=== PATIENT | female | born 1985 ===

== ENCOUNTER 2020-07-14 08:11 | Outpatient (REF) | payer OTHER, SELFPAY | END 2020-07-14 08:12 | disposition home or self-care (01) | LOC: HO.LAB 08:11 | PROVIDERS: Visit Provider Internal Medicine | DX: Z20.828 Contact with and (suspected) exposure to other viral communicable diseases (principal) | CPT/HCPCS: C9803; U0003 ==

== ENCOUNTER 2020-09-04 14:30 | Outpatient (REF) | payer OTHER, SELFPAY ==
--- NOTE | 2020-09-04 14:38 | ECG_ITS ---
Test Reason : CP Blood Pressure : / mmHG Vent. Rate : 077 BPM Atrial Rate : 077 BPM P-R Int : 124 ms QRS Dur : 092 ms QT Int : 388 ms P-R-T Axes : 063 015 010 degrees QTc Int : 439 ms Normal sinus rhythm Normal ECG When compared to the previous EKG of jul 18, 2018, no significant change Referred By: Norma Keane Electronically Signed By:KERA ROCHE
--- NOTE | 2020-09-04 14:53 | XR_ITS ---
EXAMINATION: XR CHEST CLINICAL INFORMATION: Shortness of breath COMPARISON: Previous chest x-ray October 2014 TECHNIQUE: 2 views of the chest were obtained. FINDINGS: No significant abnormality is noted involving the heart, lungs, mediastinum, bony thorax or soft tissues. XR/XR chest 2V IMPRESSION: Unremarkable examination.
== END 2020-09-04 14:31 | disposition home or self-care (01) ==
LOC: HO.XRAY 14:30
PROVIDERS: PCP Internal Medicine; Visit Provider Internal Medicine
DX: R07.1 Chest pain on breathing (principal); R06.02 Shortness of breath
CPT/HCPCS: 71046; 93005

== ENCOUNTER 2020-09-08 12:29 | Emergency (ER) | payer OTHER, SELFPAY ==
[2020-09-08 13:29] VITALS: BP 126/81; PULSE 85; RESP 18; TEMP 36.4; O2SAT 100; BMI 36.5
--- NOTE | 2020-09-08 14:23 | ECG_ITS ---
Test Reason : MIGRAINE Blood Pressure : / mmHG Vent. Rate : 082 BPM Atrial Rate : 082 BPM P-R Int : 134 ms QRS Dur : 082 ms QT Int : 386 ms P-R-T Axes : 071 010 -16 degrees QTc Int : 450 ms Normal sinus rhythm Nonspecific T wave abnormality Abnormal ECG When compared with ECG of 04-SEP-2020 14:46, Nonspecific T wave abnormality now evident in Lateral leads Referred By: Mary Jo Lee Electronically Signed By:Carter Woodson
--- NOTE | 2020-09-08 14:23 | ED_ITS ---
HPI - Headache General Chief Complaint: Headache Stated Complaint: COVID SYMPTONS Time Seen by Provider: 09/08/20 14:11 Source: patient and old records reviewed Mode of arrival: ambulatory Limitations: no limitations History of Present Illness MD elicited complaint: migraine Pertinent past history: migraines Onset (ago): day(s) (1) Onset description: gradually Location: diffuse Severity: similar to previous episodes Quality & Timing: aching and throbbing Exacerbating factors: light and noise Relieving factors: dark room and sleep Context: occurred at rest Associated symptoms: nausea and chest pain (1 week) Treatments prior to arrival: prescription analgesic Related Data Home Medications Medication Instructions Recorded Confirmed sucralfate 1 gram tablet 1 g PO BID 07/02/20 09/01/20 Previous Rx's Medication Instructions Recorded cholecalciferol (vitamin D3) 25 25 mcg PO DAILY #30 cap 06/01/20 mcg (1,000 unit) capsule topiramate 25 mg tablet 25 mg PO DAILY #30 tab 07/11/20 tramadol 50 mg tablet 50 mg PO Q8H PRN 30 Days #90 tab 07/13/20 oubyqigwqc-xfnswftqesfkm-ohdnqqvn 1 tab PO DAILY PRN 30 Days #30 tab 07/14/20 50 mg-325 mg-40 mg tablet sucralfate 1 gram tablet 1 g PO BID #180 tab 07/14/20 valacyclovir 1 gram tablet 1,000 mg PO TID 7 Days #21 tab 07/14/20 albuterol sulfate 90 mcg/actuation 2 inh INHALATION Q6H PRN 30 Days 09/01/20 breath activated powder inhaler #1 ea prednisone 20 mg tablet 20 mg PO BID 3 Days #6 tab 09/01/20 cyclobenzaprine 10 mg PO TID PRN #14 tab 09/08/20 ibuprofen 600 mg PO Q6H PRN #30 tab 09/08/20 lidocaine 1 patch TOPICAL DAILY PRN #10 ea 09/08/20 Allergies Allergy/AdvReac Type Severity Reaction Status Date / Time sumatriptan [SUMATRIPTAN] Allergy Intermediate Nausea, Verified 09/08/20 13:29 vomiting, gabapentin Allergy Unknown joint pain Verified 09/08/20 13:29 Review of Systems Review of Systems: Constitutional : No Fever, No Chills, No Fatigue ENT/Mouth : No sore throat, No Rhinorrhea Eyes: No Eye Pain, No Swelling, No Redness, + photophobia Cardiovascular : pos Chest Pain, No SOB, No Dyspnea on Exertion Respiratory : No Cough, No Sputum Gastrointestinal : pos Nausea, No Vomiting, No Diarrhea, No abdominal Pain Genitourinary : No Dysuria, No Urinary Frequency, No Hematuria, Musculoskeletal : No joint pain, No Myalgias, No Joint Swelling Skin : No Skin Lesions, No rash Neuro : No Weakness, No Numbness, No Dizziness, positive Headache Psych : No Anxiety/Panic, No Depression Heme/Lymph: No Bruising, No Bleeding,No Lymphadenopathy Endocrine : No Polyuria, No Polydipsia All other systems reviewed and are negative [facility] Past Medical History Attestation statement: The following information was validated with the patient. Medical History Chest pain Hypovitaminosis D Migraines Moderate asthma Surgical History History of section History of tubal ligation Family History Family History (Updated 08/20/20 @ 08:41 by Carolina Orta [facility]) Father CVD (cardiovascular disease) Mother Chronic mental illness Breast cancer Schizophrenia Maternal Grandmother Hypertension Stroke Paternal Grandmother Breast cancer Paternal Aunt Breast cancer Paternal Aunt Cancer of unknown origin Family/Other Chronic mental illness Social History Social History Alcohol intake: never Smoking Status: Never smoker Advance Directives: No Advance Directives Information Provided: No Physical Exam Vital Signs: Vital Signs: Last Vital Signs Temp 97.6 F 09/08/20 13:29 Pulse 85 09/08/20 13:29 Resp 18 09/08/20 13:29 BP 126/81 09/08/20 13:29 Pulse Ox 100 09/08/20 13:29 Body Mass Index 36.5 Appearance: Alert. Oriented X3. No acute distress. Eyes: Pupils equal, round and reactive to light. no photophobia ENT: Pharynx normal. Neck: Normal inspection. Neck supple. no meningeal CVS: Normal heart rate and rhythm. Pulses normal. Chest: ttp along sternum Respiratory: No respiratory distress. Breath sounds normal. Abdomen: Soft and non-tender. Skin: Skin warm and dry. Normal skin color. Normal skin turgor. Extremities: No lower extremity edema. No calf ttp Neuro: Oriented X 3. No motor deficit. No sensory deficit. 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 Normal HERLINDA. Normal QRS complex. ST T wave : inverted III, aVF, V1 qTC: normal prior studies: no acute ischemia, no change 2018 The study has been interpreted contemporaneously by me. . Discharge Plan Discharge Clinical Impression: Acute costochondritis Migraines Qualifiers: Migraine type: without aura Status migrainosus presence: without status migrainosus Intractability: not intractable Qualified Code(s): G43.009 - Migraine without aura, not intractable, without status migrainosus Patient Disposition: Home, Self-Care Instructions: Migraine Headache (ED), Costochondritis (ED) Additional Instructions: return to ED for any worsening symptoms or concerns Prescriptions: New cyclobenzaprine 10 mg tablet 10 mg PO TID PRN (Reason: muscle spasm) Qty: 14 RF: 0 lidocaine 4 % adhesive patch,medicated 1 patch topical DAILY PRN (Reason: pain) Qty: 10 RF: 0 ibuprofen 600 mg tablet 600 mg PO Q6H PRN (Reason: pain) Qty: 30 RF: 0 No Action cholecalciferol (vitamin D3) 25 mcg (1,000 unit) capsule 25 mcg PO DAILY Qty: 30 RF: 3 sucralfate 1 gram tablet 1 g PO BID RF: 0 topiramate 25 mg tablet 25 mg PO DAILY Qty: 30 RF: 6 tramadol 50 mg tablet 50 mg PO Q8H PRN (Reason: pain) 30 Days Qty: 90 RF: 0 sucralfate 1 gram tablet 1 g PO BID Qty: 180 RF: 0 lbtxfmmxgz-yvsushdiikgvj-fbvk 50-325-40 mg tablet 1 tab PO DAILY PRN (Reason: pain) 30 Days Qty: 30 RF: 0 valacyclovir 1 gram tablet 1,000 mg PO TID 7 Days Qty: 21 RF: 3 ProAir RespiClick 90 mcg/actuation aerosol powdr breath activated 2 inh inhalation Q6H PRN (Reason: shortness of breath or wheezing) 30 Days Qty: 1 RF: 6 prednisone 20 mg tablet 20 mg PO BID 3 Days Qty: 6 RF: 0 Referrals: Norma Dietz MD [Primary Care Provider] - 2 days (if not better) Stand Alone Forms: Work/School Release Print Language: Albanian
[2020-09-08] MEDS: Metoclopramide HCl 10 MG/2 ML VIAL IVPUSH (14:37)
[2020-09-08] MEDS: Ketorolac Tromethamine 30 MG/ML VIAL IVPUSH (14:38)
[2020-09-08] MEDS: 0.9 % Sodium Chloride 1,000 ML 999 ML IVCONT (14:39)
[2020-09-08] MEDS: diphenhydrAMINE HCL 50 MG/ML VIAL 25 MG IVPUSH (14:41)
[2020-09-08] MEDS: Magnesium Sulfate/H2O 2 GM/50 ML PIGGYBACK IV (14:46)
[2020-09-08 15:18] LABS: Influenza A PCR NEGATIVE (Negative); Influenza B PCR NEGATIVE (Negative); Resp Syncy Virus RNA Qual PCR NEGATIVE (Negative); SARS COV2 PCR INHOUSE NEGATIVE (Negative)
[2020-09-08 15:22] LABS: Troponin-I High Sensitivity < 3.5 ng/L (<3.5-17.0)
--- NOTE | 2020-09-08 16:04 | PC.NURSE ---
PT REPORTS RELIEF OF HEADACHE AFTER MEDICATED.
[2020-09-08 16:14] VITALS: BP 150/89; PULSE 85; RESP 18; O2SAT 100
== END 2020-09-08 16:27 | disposition home or self-care (01) ==
PROVIDERS: Emergency Provider Emergency Medicine; PCP Internal Medicine
DX: M94.0 Chondrocostal junction syndrome [Tietze] (principal); G43.009 Migraine without aura, not intractable, without status migrainosus; Z20.822 Contact with and (suspected) exposure to COVID-19; J45.909 Unspecified asthma, uncomplicated
CPT/HCPCS: 0241U; 36415; 84484; 93005; 96365; 96375; 99284; J1200; J1885; J2765; J3475

== ENCOUNTER 2020-10-02 15:06 | Outpatient (REF) | payer OTHER, SELFPAY ==
[2020-10-02 17:12] LABS: MANUAL DIFF FLAG NO
[2020-10-02 17:23] LABS: Basophils Percent Auto 0.5 % (0-2); Eosinophils Absolute Auto 0.3 X10*3/uL (0.0-0.4); Eosinophils Percent Auto 3.5 % (0-4); Hematocrit 36.4 % (37-47); Hemoglobin 11.7 g/dl (12.0-16.0); Imm Gran Abs Auto 0.02 X10*3/uL (0.00-0.03); Imm Gran Pct Auto 0.2 % (0.0-0.4); Lymphocytes Absolute Auto 2.2 X10*3/uL (1.2-4.9); Lymphocytes Percent Auto 26.7 % (20-40); Mean Corpuscular HGB Conc 32.1 g/dl (31.0-35.0); Mean Corpuscular Hemoglobin 25.2 pg (27.0-33.0); Mean Corpuscular Volume 78.3 fL (80-98); Monocytes Absolute Auto 0.5 X10*3/uL (0.1-1.2); Monocytes Percent Auto 6.2 % (2-11); Neutrophils Absolute Auto 5.3 X10*3/uL (2.0-8.3); Neutrophils Percent Auto 62.9 % (45-73); Platelet Count 357 X10*3/uL (160-400); Red Blood Count 4.65 X10*6/uL (4.20-5.50); White Blood Count 8.4 X10*3/uL (4.8-10.8)
[2020-10-02 18:26] LABS: Erythrocyte Sedimentation Rate 14 MM/HR (0-20)
[2020-10-03 07:50] LABS: SARS COV2 IgG Negative (Negative)
[2020-10-05 12:16] LABS: IgA 409 mg/dL (47-310); IgG 1361 mg/dL (600-1640); IgM 160 mg/dL (50-300)
== END 2020-10-02 15:07 | disposition home or self-care (01) ==
LOC: HO.LAB 15:06
PROVIDERS: PCP Internal Medicine; Visit Provider Hospitalist
DX: J45.41 Moderate persistent asthma with (acute) exacerbation (principal); R07.1 Chest pain on breathing; Z01.84 Encounter for antibody response examination
CPT/HCPCS: 36415; 82784; 82785; 85025; 85652; 86003; 86769; 99202

== ENCOUNTER → 2020-11-18 13:24 | Outpatient (BNVA) | payer OTHER, SELFPAY | PROVIDERS: PCP Internal Medicine; Visit Provider Internal Medicine | DX: R07.2 Precordial pain (principal); R06.02 Shortness of breath | CPT/HCPCS: 99202 ==

== ENCOUNTER 2020-11-20 14:01 | Outpatient (REF) | payer OTHER, SELFPAY ==
--- NOTE | 2020-11-20 16:59 | PFT_ITS ---
Forced vital capacity FEV1, MHL98-03 and MVV are all normal. Post-bronchodilator therapy, there is no change. Total lung capacity and residual volume normal. Diffusion capacity normal. CONCLUSION: Normal pulmonary function test. MD TOMMIE Neumann/NICHOLAS / [id number]
[2020-11-20 18:17] LABS: MANUAL DIFF FLAG NO
[2020-11-20 18:23] LABS: Basophils Percent Auto 0.4 % (0-2); Eosinophils Absolute Auto 0.1 X10*3/uL (0.0-0.4); Eosinophils Percent Auto 1.6 % (0-4); Hematocrit 36.8 % (37-47); Hemoglobin 11.6 g/dl (12.0-16.0); Imm Gran Abs Auto 0.02 X10*3/uL (0.00-0.03); Imm Gran Pct Auto 0.3 % (0.0-0.4); Lymphocytes Absolute Auto 2.3 X10*3/uL (1.2-4.9); Lymphocytes Percent Auto 31.3 % (20-40); Mean Corpuscular HGB Conc 31.5 g/dl (31.0-35.0); Mean Corpuscular Hemoglobin 25.2 pg (27.0-33.0); Mean Corpuscular Volume 79.8 fL (80-98); Mean Platelet Volume 9.1 fL (9.4-12.3); Monocytes Absolute Auto 0.6 X10*3/uL (0.1-1.2); Monocytes Percent Auto 7.7 % (2-11); Neutrophils Absolute Auto 4.4 X10*3/uL (2.0-8.3); Neutrophils Percent Auto 58.7 % (45-73); Platelet Count 338 X10*3/uL (160-400); Red Blood Count 4.61 X10*6/uL (4.20-5.50); Red Cell Distribution Width 13.8 % (11.0-16.0); White Blood Count 7.4 X10*3/uL (4.8-10.8)
[2020-11-20 19:24] LABS: Erythrocyte Sedimentation Rate 19 MM/HR (0-20)
[2020-11-23 20:26] LABS: Immunoglobulin E 15 kU/L (<OR=114)
== END 2020-11-20 14:02 | disposition home or self-care (01) ==
LOC: HO.RESP 14:01
PROVIDERS: PCP Internal Medicine; Visit Provider Hospitalist
DX: J45.41 Moderate persistent asthma with (acute) exacerbation (principal)
CPT/HCPCS: 36415; 82785; 85025; 85652; 94060; 94727; 94729; 99212

== ENCOUNTER → 2020-12-31 09:40 | Outpatient (REF) | payer OTHER, SELFPAY ==
--- NOTE | 2020-12-31 09:43 | CA_ITS ---
Transthoracic Echocardiogram Patient (Last, First, Middle): Saloni Hyman, Gender: Female Date of : 1985 Age: 35 Procedure Date: 12/31/2020 Procedure Type: Transthoracic Echocardiogram Location: OP Height: 152.4 cm Weight: 83.01 kg BSA: 1.80 m2 Heart Rate: bpm BP: 113 / 59 mmHg Upholstery Mechanic: JESSA Referring MD: Braeden Brown MD Bodily Injury Adjuster: Herb French MD Symptoms: R06.02 - Shortness of breath Study Quality: Good ECG Rhythm: Sinus Conclusions: - Essentially normal study Findings Left Ventricle Normal left ventricular size, thickness, and systolic function. The visually estimated ejection fraction is between 60-65%. Diastolic function is normal for age. Right Ventricle Normal right ventricular cavity size and systolic function. Atria Both atria are normal in size. There is a mobile atrial septum noted. Interatrial shunt cannot be excluded. Aortic Valve Normal aortic valve structure and function. There is no aortic valve stenosis. There is no aortic valve regurgitation. Mitral Valve Normal mitral valve structure and function. There is trace mitral valve regurgitation. There is no mitral valve stenosis. Pulmonic Valve The pulmonic valve is likely normal. Tricuspid Valve Normal tricuspid valve structure. There is trace tricuspid valve regurgitation. The right ventricular systolic pressure is normal. The right ventricular systolic pressure is 18 mmHg. Normal right atrial pressure. There is no evidence of pulmonary hypertension. Great Vessels All visible segments of the aorta are normal in size. The pulmonary artery was not well visualized. Venous The inferior vena cava is normal in size and collapses greater than 50% with inspiration. Pericardium/Pleural There is no evidence of pericardial effusion. Prior Study Comparison No prior study available for comparison. Measurements 2D Linear Measurements IVSd: 0.69 0.6-0.9/0.6-1.0 cm LVIDd: 5.31 3.9-5.3/4.2-5.9 cm LVIDd Index: 2.95 2.4-3.2/2.2-3.1 cm/m2 LVIDs: 3.39 2.0-3.6 cm LVPWd: 0.92 0.7-1.1 cm Ao Root: 2.60 2.1-3.5 cm LA Diam: 3.50 2.7-3.8/3.0-4.0 cm LAIDs Index: 1.94 1.5-2.3 cm/m2 LV Mass: 189.37 67-162/88-224 g LV Mass Index: 105.20 43-95/49-115 g/m2 LVOT Diam: 2.30 3.0+(-)1.3 cm 2D Systolic Function EF 4C: 63.00 >55% EF 2C: 58.00 >55% EF BiP: 58.80 >55% Mitral Valve MV Pk E: 0.67 MV PK A: 0.53 MV Decel Time: 135.00 E/A: 1.30 E'Lateral: 11.60 E'Medial: 9.36 E/E' Med: 7.10 E/E' Lat: 5.80 PHT: 39.00 MVA PHT: 5.64 Decel [place]: 4.96 Aortic Valve AoV Pk [place]: 1.22 AoV Pk Grad: 6.00 LVOT LVOT Pk [place]: 0.95 LVOT Mn [place]: 0.63 LVOT VTI: 0.20 LVOT Pk Grad: 4.00 LVOT Mn Grad: 2.00 LVOT Diam: 2.30 LVOT Area: 4.15 Diastolic Function MV Pk E: 0.67 MV Pk A: 0.53 E/A: 1.30 E'Medial: 9.36 E/E' Med: 7.10 E' Laterial: 11.60 E/E' Lat: 5.80 Tricuspid Valve TR Pk [place]: 1.95 TR Pk Grad: 15.00 RA Press: 3.00 RVSP: 18.00 Great Vessels Aorta Ao Root-2D: 2.60 2.0-3.7 cm Ao Asc: 2.70 2.1-3.4 cm Updated in Other Vendor System with Status of Final Herb French MD electronically signed on 01/01/2021 3:23:32 PM with status of Final
== END ==
LOC: HO.CARD 09:40
PROVIDERS: Visit Provider Internal Medicine
DX: R06.02 Shortness of breath (principal)
CPT/HCPCS: 93306

== ENCOUNTER → 2021-01-08 14:38 | Outpatient (BNVA) | payer OTHER, SELFPAY | PROVIDERS: PCP Internal Medicine; Visit Provider Hospitalist | DX: J45.50 Severe persistent asthma, uncomplicated (principal); J30.9 Allergic rhinitis, unspecified; Z79.899 Other long term (current) drug therapy | CPT/HCPCS: 99212 ==

== ENCOUNTER → 2021-01-20 13:53 | Outpatient (BNVA) | payer OTHER, SELFPAY | PROVIDERS: PCP Internal Medicine; Visit Provider Hospitalist | DX: Z71.89 Other specified counseling (principal) | CPT/HCPCS: 99211 ==

== ENCOUNTER 2021-05-13 08:07 | Outpatient (REF) | payer OTHER, SELFPAY ==
[2021-05-13 08:25] LABS: MANUAL DIFF FLAG NO
[2021-05-13 09:08] LABS: Basophils Percent Auto 0.2 % (0-2); Eosinophils Absolute Auto 0.1 X10*3/uL (0.0-0.4); Hematocrit 36.5 % (37-47); Hemoglobin 11.6 g/dl (12.0-16.0); Imm Gran Abs Auto 0.02 X10*3/uL (0.00-0.03); Imm Gran Pct Auto 0.5 % (0.0-0.4); Lymphocytes Absolute Auto 1.1 X10*3/uL (1.2-4.9); Lymphocytes Percent Auto 26.4 % (20-40); Mean Corpuscular HGB Conc 31.8 g/dl (31.0-35.0); Mean Corpuscular Hemoglobin 25.6 pg (27.0-33.0); Mean Corpuscular Volume 80.6 fL (80-98); Mean Platelet Volume 8.7 fL (9.4-12.3); Monocytes Absolute Auto 0.6 X10*3/uL (0.1-1.2); Monocytes Percent Auto 14.9 % (2-11); Neutrophils Absolute Auto 2.3 X10*3/uL (2.0-8.3); Platelet Count 254 X10*3/uL (160-400); Red Blood Count 4.53 X10*6/uL (4.20-5.50); Red Cell Distribution Width 14.4 % (11.0-16.0)
[2021-05-13 09:37] LABS: Alanine Aminotransferase 16 U/L (0-31); Albumin Level 3.8 g/dL (3.5-5.0); Alkaline Phosphatase 70 U/L (39-117); Anion Gap 13 (12-20); Aspartate Amino Transferase 14 U/L (5-31); Bilirubin Total 0.3 mg/dL (0.0-1.0); Blood Urea Nitrogen 9 mg/dL (9-16); Calcium 8.7 mg/dL (8.4-10.2); Carbon Dioxide 23 mmol/L (22-29); Chloride 105 mmol/L (96-108); Estimated Glomerular Filt Rate > 60; Glucose Random 108 mg/dL (60-115); Potassium 4.2 mmol/L (3.3-5.1); Sodium 137 mmol/L (135-145); Total Protein 6.9 g/dL (6.5-8.0)
== END 2021-05-13 08:08 | disposition home or self-care (01) ==
LOC: HO.LAB 08:07
PROVIDERS: PCP Internal Medicine; Visit Provider Internal Medicine
DX: E11.9 Type 2 diabetes mellitus without complications (principal); D64.9 Anemia, unspecified
CPT/HCPCS: 36415; 80053; 85025

== ENCOUNTER 2021-05-13 13:09 | Emergency (ER) | payer OTHER, SELFPAY ==
--- NOTE | ~2021-05-13 | XR_ITS ---
EXAMINATION: XR CHEST CLINICAL INFORMATION: Cough and chest pain COMPARISON: Previous exam August 2020 TECHNIQUE: Frontal view of the chest was obtained. FINDINGS: No significant abnormality is noted involving the heart, lungs, mediastinum, bony thorax or soft tissues. XR/XR chest 1V IMPRESSION: Unremarkable examination.
--- NOTE | 2021-05-13 13:12 | PC.NURSE ---
sign language interpreter called to triage
[2021-05-13 13:44] VITALS: BP 145/89; PULSE 99; RESP 18; TEMP 36.9; O2SAT 100; BMI 37.0
--- NOTE | 2021-05-13 14:50 | ED_ITS ---
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 No shortness of breath, fevers, chills. Patient is vaccinated for COVID Related Data Previous Rx's Medication Instructions Recorded albuterol sulfate 2.5 mg INHALATION Q4H PRN 30 Days 11/24/20 #360 ml albuterol sulfate 90 mcg/actuation 2 inh INHALATION Q6H PRN 30 Days 11/24/20 aerosol inhaler #18 g cetirizine 10 mg capsule (Zyrtec) 10 mg PO DAILY 30 Days #30 cap 11/24/20 epinephrine 0.3 mg/0.3 mL 0.3 mg IM Q10M PRN 30 Days #2 ea 11/24/20 injection, auto-injector (EpiPen 2-[place]) fluticasone furoate 200 1 inh INHALATION DAILY 30 Days #60 11/24/20 mcg-vilanterol 25 mcg/dose ea inhalation powder (Breo Ellipta) montelukast 10 mg tablet 10 mg PO BEDTIME 30 Days #30 tab 11/24/20 (Singulair) umeclidinium 62.5 mcg/actuation 1 inh INHALATION DAILY 30 Days #30 11/24/20 blister powder for inhalation ea (Incruse Ellipta) cholecalciferol (vitamin D3) 25 25 mcg PO DAILY 90 Days #90 cap 12/14/20 mcg (1,000 unit) capsule topiramate 25 mg tablet 25 mg PO DAILY #30 tab 12/14/20 valacyclovir 1 gram tablet 1,000 mg PO TID 7 Days #21 tab 12/14/20 fluticasone propionate 50 1 spray INTRANASAL BID 30 Days #16 01/05/21 mcg/actuation nasal g spray,suspension (Flonase Allergy Relief) omeprazole 20 mg capsule,delayed 20 mg PO DAILY 90 Days #90 cap 01/05/21 release dupilumab 300 mg/2 mL subcutaneous 300 mg SUBCUT Q2W 365 Days #56 ml 01/12/21 syringe ([employer]) cyclobenzaprine 10 mg tablet 10 mg PO TID PRN 30 Days #90 tab 01/19/21 sucralfate 1 gram tablet 1 g PO BID #180 tab 03/07/21 ondansetron HCl 8 mg tablet 8 mg PO BID #30 tab 03/20/21 bzhuyjwxki-xijfwxtochibn-ofpcawkz 1 tab PO DAILY PRN 30 Days #30 tab 03/21/21 50 mg-325 mg-40 mg tablet tramadol 50 mg tablet 50 mg PO Q8H PRN 30 Days #90 tab 03/21/21 levalbuterol HCl 1.25 mg/3 mL 1.25 mg INHALATION BID PRN #180 ml 04/12/21 solution for nebulization duloxetine 20 mg capsule,delayed 20 mg PO BID 30 Days #60 cap 04/22/21 release ibuprofen 600 mg tablet 600 mg PO Q6H PRN #30 tab 04/22/21 puorjqwfag-vlcyxwjugvcsy-wfzfiyjk 1 cap PO Q8H PRN #10 cap 05/13/21 50 mg-300 mg-40 mg capsule (Fioricet) ibuprofen 600 mg tablet 600 mg PO Q8H PRN #20 tab 05/13/21 Allergies Allergy/AdvReac Type Severity Reaction Status Date / Time gabapentin AdvReac Intermediate joint pain Verified 05/13/21 13:44 sumatriptan [SUMATRIPTAN] AdvReac Intermediate Nausea, Verified 05/13/21 13:44 vomiting, Review of Systems Review of Systems: Yes all other systems are reviewed and are negative Constitutional: Constitutional: Reports no additional constitutional complaints, Denies body ache(s), Denies chills, Denies fever(s), Denies headache(s) and Denies weakness Eyes: Eyes: Reports no additional eye complaints and Denies change in vision ENT: Reports system reviewed and no additional complaints, except as documented, Denies dizziness, Reports otalgia, Denies headache(s), Denies nasal congestion, Denies nasal discharge, Denies neck pain and Reports sore throat Cardiovascular: Cardiovascular: Reports no additional cardiovascular complaints, Denies chest pain, Denies leg edema and Denies dyspnea Respiratory: Respiratory: Reports no additional respiratory complaints, Denies cough and Denies dyspnea Gastrointestinal: Gastrointestinal: Reports no additional gastrointestinal complaints, Denies abdominal pain, Denies diarrhea, Denies nausea and Denies vomiting Genitourinary: Genitourinary: Reports no additional female genitourinary complaints and Denies urinary incontinence Musculoskeletal: Musculoskeletal: Reports no additional musculoskeletal complaints, Denies back pain, Denies arthralgias, Denies joint swelling, Denies neck pain, Denies numbness and Denies tingling Integumentary/Breasts: Skin/Breast: Reports system reviewed and no additional complaints, except as docu and Denies rash Neurologic: Reports system reviewed and no additional complaints, except as documented, Denies Abnormal speech present, Denies dizziness, Denies headache(s), Denies numbness, Denies tingling and Denies weakness PMFSH Past Medical History Attestation statement: The following information was validated with the patient. 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 Asthma Chest pain Chronic allergic rhinitis Diabetes mellitus Fibromyalgia GERD (gastroesophageal reflux disease) Hypovitaminosis D Migraines Moderate asthma Obese Surgical History History of section History of tubal ligation Family History Family History Father CVD (cardiovascular disease) Mother Chronic mental illness Breast cancer Schizophrenia Mental health disorder Maternal Grandmother Hypertension Stroke Paternal Grandmother Breast cancer Paternal Aunt Breast cancer Paternal Aunt Cancer of unknown origin Family/Other Chronic mental illness Mental health disorder Social History Social History Housing: House Alcohol intake: never Patient Tobacco Use Status: Never used Tobacco e-Cigarette/Vaping Use: Never Used Second Hand Smoke Exposure: No Advance Directives: Yes Advance Directives Information Provided: Yes Advance Directives on File: No service: No Current occupational status: employed Physical Exam Vital Signs: Vital Signs: Last Vital Signs Temp 98.4 F 05/13/21 13:44 Pulse 99 05/13/21 13:44 Resp 18 05/13/21 13:44 BP 145/89 H 05/13/21 13:44 Pulse Ox 100 05/13/21 13:44 Body Mass Index 37.0 Const: General: cooperative, healthy appearing, comfortable and no acute distress Orientation/consciousness: patient oriented x3 Limitations: no limitations HENMT: Head: Yes normal to inspection Ears: hearing grossly normal bilaterally and TM's normal bilaterally General nose exam: Normal external nose present Face and sinus: Yes normal facial exam Mouth: Normal oral and palatal mucosa present Throat: Yes posterior oropharynx normal and Yes tonsils normal Eyes: General: appearance normal, both eyes and all related structures Pupils: Equal, round and reactive pupils present Neck: Neck: Yes normal visual inspection Chest: Chest palpation & inspection: normal inspection of the chest Resp: Effort & Inspection: normal respiratory effort Auscultation: clear to auscultation bilaterally Cardio: Rate: regular rate Rhythm: regular rhythm Peripheral pulses: Peripheral pulses 2+ throughout GI: Inspection: Yes normal to inspection Palpation (GI): Soft to palpation and nontender Auscultation: normal bowel sounds Back/Spine/Pelvis: Thoracic/Lumbar Spine: thoracic and lumbar spine normal to inspection Skin: General skin exam: no rashes or lesions noted Neuro: General: patient oriented x3, no focal motor deficits and normal sensation to monofilament Cranial nerves: Yes Equal, round and reactive pupils present Cognition (Neuro): normal cognition Speech: No Abnormal speech present Gait exam (Neuro): Normal gait present Motor exam (neuro): 5/5 motor strength present throughout Extrem: General: Yes normal to inspection Course Course Course Narrative: URI symptoms for several days. Will send COVID screen, check chest x-ray 1600-COVID screen positive. Chest x-ray shows no acute finding. Patient speaking full sentences. Vitals are stable. Reviewed worrisome signs and symptoms of when to return to the emergency department. Comfortable discharge home. MDM - URI/Sore Throat Medical Records Attestation: I reviewed the patient's medical records. Lab Data Attestation: I reviewed the patient's lab results. Labs: Lab Results 05/13/21 05/13/21 Range/Units 14:51 14:51 COVID-19 ([facility]) Positive A (Negative) COVID-19 Clin Com See Note S. pyogenes GrpA JOHAN Negative (Negative) Imaging Data Chest x-ray: Attestation: I personally reviewed and interpreted this imaging study as follows: My impression: [address] [address] XRay Report Signed Patient: Saloni Hyman MR#: [id number] : 1985 Acct:[id number] Age/Sex: 35 / F ADM Date: 05/13/21 Loc: HO.ED Attending Dr: Ordering Physician: Alejandrina Camargo NP Date of Service: 05/13/21 Procedure(s): XR chest 1V Accession Number(s): [id number] cc: Alejandrina Camargo NP~ EXAMINATION: XR CHEST CLINICAL INFORMATION: Cough and chest pain COMPARISON: Previous exam August 2020 TECHNIQUE: Frontal view of the chest was obtained. FINDINGS: No significant abnormality is noted involving the heart, lungs, mediastinum, bony thorax or soft tissues. XR/XR chest 1V IMPRESSION: Unremarkable examination. ? Discharge Plan Discharge Clinical Impression: COVID-19 Patient Disposition: Home, Self-Care Instructions: COVID-19 (Coronavirus Disease 2019) (ED) Additional Instructions: increase fluids, rest motrin or tylenol for pain or fever quarentine until 05/22 Prescriptions: New ibuprofen 600 mg tablet 600 mg PO Q8H PRN (Reason: fever or pain) Qty: 20 RF: 0 uzlcfixnld-fnkvcvudourts-swtj [Fioricet] 50-300-40 mg capsule 1 cap PO Q8H PRN (Reason: pain) Qty: 10 RF: 0 No Action albuterol sulfate 2.5 mg /3 mL (0.083 %) solution for nebulization 2.5 mg inhalation Q4H PRN (Reason: shortness of breath or wheezing) 30 Days Qty: 360 RF: 11 albuterol sulfate 90 mcg/actuation HFA aerosol inhaler 2 inh inhalation Q6H PRN (Reason: shortness of breath or wheezing) 30 Days Qty: 18 RF: 12 Breo Ellipta 200-25 mcg/dose blister with device 1 inh inhalation DAILY 30 Days Qty: 60 RF: 11 montelukast [Singulair] 10 mg tablet 10 mg PO BEDTIME 30 Days Qty: 30 RF: 11 Incruse Ellipta 62.5 mcg/actuation blister with device 1 inh inhalation DAILY 30 Days Qty: 30 RF: 11 epinephrine [EpiPen 2-[place]] 0.3 mg/0.3 mL auto-injector 0.3 mg IM Q10M PRN (Reason: anaphylaxis) 30 Days Qty: 2 RF: 6 Zyrtec 10 mg capsule 10 mg PO DAILY 30 Days Qty: 30 RF: 8 cholecalciferol (vitamin D3) 25 mcg (1,000 unit) capsule 25 mcg PO DAILY 90 Days Qty: 90 RF: 3 topiramate 25 mg tablet 25 mg PO DAILY Qty: 30 RF: 6 valacyclovir 1 gram tablet 1,000 mg PO TID 7 Days Qty: 21 RF: 3 Dupixent Syringe 300 mg/2 mL syringe 300 mg subcut Q2W 365 Days Qty: 56 RF: 0 cyclobenzaprine 10 mg tablet 10 mg PO TID PRN (Reason: muscle spasm) 30 Days Qty: 90 RF: 6 sucralfate 1 gram tablet 1 g PO BID Qty: 180 RF: 1 ondansetron HCl 8 mg tablet 8 mg PO BID Qty: 30 RF: 3 kjnmtlrqto-gtcirfltyheeg-lgyh 50-325-40 mg tablet 1 tab PO DAILY PRN (Reason: pain) 30 Days Qty: 30 RF: 0 tramadol 50 mg tablet 50 mg PO Q8H PRN (Reason: pain) 30 Days Qty: 90 RF: 0 levalbuterol HCl 1.25 mg/3 mL solution for nebulization 1.25 mg inhalation BID PRN (Reason: for wheezing) Qty: 180 RF: 3 duloxetine 20 mg capsule,delayed release(DR/EC) 20 mg PO BID 30 Days Qty: 60 RF: 2 ibuprofen 600 mg tablet 600 mg PO Q6H PRN (Reason: pain) Qty: 30 RF: 0 fluticasone propionate [Flonase Allergy Relief] 50 mcg/actuation spray,suspension 1 spray intranasal BID 30 Days Qty: 16 RF: 3 omeprazole 20 mg capsule,delayed release(DR/EC) 20 mg PO DAILY 90 Days Qty: 90 RF: 1 Referrals: Norma Dietz MD [Primary Care Provider] - 2 days Stand Alone Forms: Work/School Release Interventions: ED Discharge Assessment Last Done: 05/13/21 15:56 Discharge Date/Time: 05/13/21 15:57 Print Language: Japanese
[2021-05-13 15:04] LABS: COVID-19 Test Positive (Negative); IDNOW Serial# 9DD0AD1C
[2021-05-13 15:09] LABS: IDNOW Serial# 08D9AD1C; Strep A Nucleic Acid Negative (Negative)
== END 2021-05-13 15:57 | disposition home or self-care (01) ==
PROVIDERS: Emergency Provider Emergency Medicine Emergency Medical Services; PCP Internal Medicine
DX: U07.1 COVID-19 (principal); R07.9 Chest pain, unspecified; R05 Cough; H92.03 Otalgia, bilateral; Z79.899 Other long term (current) drug therapy
CPT/HCPCS: 36415; 71045; 87635; 87651; 99283

== ENCOUNTER 2021-05-24 08:31 | Outpatient (REF) | payer OTHER, SELFPAY ==
[2021-05-24 09:16] LABS: COVID-19 Test Positive (Negative)
== END 2021-05-24 08:32 | disposition home or self-care (01) ==
LOC: HO.LAB 08:31
PROVIDERS: PCP Internal Medicine; Visit Provider Internal Medicine
DX: Z20.822 Contact with and (suspected) exposure to COVID-19 (principal)
CPT/HCPCS: 36415; 87635; C9803

== ENCOUNTER → 2021-05-27 13:58 | Outpatient (BNVA) | payer OTHER, SELFPAY | PROVIDERS: PCP Internal Medicine; Visit Provider Hospitalist ==

== ENCOUNTER 2021-05-31 11:21 | Outpatient (REF) | payer OTHER, SELFPAY ==
--- NOTE | ~2021-05-31 | XR_ITS ---
EXAMINATION: XR CHEST CLINICAL INFORMATION: COVID 19. COMPARISON: 05/13/2021 portable chest. TECHNIQUE: 2 views of the chest were obtained. FINDINGS: No significant abnormality is noted involving the heart, lungs, mediastinum, bony thorax or soft tissues. XR/XR chest 2V IMPRESSION: No acute cardiopulmonary process.
== END 2021-05-31 11:22 | disposition home or self-care (01) ==
LOC: HO.XRAY 11:21
PROVIDERS: PCP Student in an Organized Health Care Education/Training Program; Visit Provider Hospitalist
DX: U07.1 COVID-19 (principal); J45.909 Unspecified asthma, uncomplicated
CPT/HCPCS: 71046

== ENCOUNTER 2021-10-08 11:05 | Outpatient (REF) | payer OTHER, SELFPAY ==
[2021-10-08 12:43] LABS: Alanine Aminotransferase 11 U/L (0-31); Albumin Level 4.1 g/dL (3.5-5.0); Alkaline Phosphatase 71 U/L (39-117); Anion Gap 12 (12-20); Aspartate Amino Transferase 14 U/L (5-31); Bilirubin Total 0.5 mg/dL (0.0-1.0); Blood Urea Nitrogen 8 mg/dL (9-16); Calcium 9.2 mg/dL (8.4-10.2); Carbon Dioxide 26 mmol/L (22-29); Chloride 102 mmol/L (96-108); Cholesterol 164 mg/dL; Estimated Glomerular Filt Rate > 60; Glucose Fasting 101 mg/dL (60-99); HDL Cholesterol 44 mg/dL; LDL Cholesterol Calculated 110 mg/dl; Sodium 136 mmol/L (135-145); Total Protein 7.3 g/dL (6.5-8.0); Triglycerides 51 mg/dL
== END 2021-10-08 11:06 | disposition home or self-care (01) ==
LOC: HO.LAB 11:05
PROVIDERS: PCP Internal Medicine; Visit Provider Internal Medicine
DX: E66.9 Obesity, unspecified (principal)
CPT/HCPCS: 36415; 80053; 80061

== ENCOUNTER → 2021-10-26 14:08 | Outpatient (BNVA) | payer OTHER, SELFPAY | PROVIDERS: PCP Internal Medicine; Visit Provider Internal Medicine Pulmonary Disease | DX: J45.909 Unspecified asthma, uncomplicated (principal) | CPT/HCPCS: 99212 ==

== ENCOUNTER 2021-11-05 13:34 | Outpatient (REF) | payer OTHER, SELFPAY ==
[2021-11-05 14:42] LABS: MANUAL DIFF FLAG NO
[2021-11-05 15:00] LABS: Basophils Percent Auto 0.3 % (0-2); Eosinophils Absolute Auto 0.1 X10*3/uL (0.0-0.4); Eosinophils Percent Auto 1.1 % (0-4); Hematocrit 37.2 % (37.0-47.0); Hemoglobin 11.6 g/dl (12.0-16.0); Imm Gran Abs Auto 0.04 X10*3/uL (0.00-0.03); Imm Gran Pct Auto 0.5 % (0.0-0.4); Lymphocytes Percent Auto 26.6 % (20-40); Mean Corpuscular HGB Conc 31.2 g/dl (31.0-35.0); Mean Corpuscular Hemoglobin 25.3 pg (27.0-33.0); Mean Platelet Volume 8.5 fL (9.4-12.3); Monocytes Absolute Auto 0.6 X10*3/uL (0.1-1.2); Monocytes Percent Auto 7.5 % (2-11); Neutrophils Absolute Auto 4.8 x10*3/uL (2.0-8.3); Platelet Count 334 X10*3/uL (160-400); Red Blood Count 4.59 X10*6/uL (4.20-5.50); Red Cell Distribution Width 14.2 % (11.0-16.0); White Blood Count 7.5 X10*3/uL (4.8-10.8)
[2021-11-05 15:08] LABS: D Dimer High Sensitivity < 150 NG/ML
[2021-11-05 15:16] LABS: Anion Gap 11 (12-20); Blood Urea Nitrogen 10 mg/dL (9-16); Calcium 9.4 mg/dL (8.4-10.2); Carbon Dioxide 28 mmol/L (22-29); Chloride 105 mmol/L (96-108); Estimated Glomerular Filt Rate > 60; Glucose Random 113 mg/dL (60-115); Potassium 4.3 mmol/L (3.3-5.1); Sodium 140 mmol/L (135-145)
[2021-11-05 15:44] LABS: Erythrocyte Sedimentation Rate 18 MM/HR (0-20)
[2021-11-08 22:35] LABS: Immunoglobulin E 9 kU/L (<OR=114)
== END 2021-11-05 13:35 | disposition home or self-care (01) ==
LOC: HO.LAB 13:34
PROVIDERS: PCP Internal Medicine; Visit Provider Hospitalist
DX: J45.50 Severe persistent asthma, uncomplicated (principal); J30.9 Allergic rhinitis, unspecified; U07.1 COVID-19
CPT/HCPCS: 36415; 80048; 82785; 85025; 85379; 85652; 99212

== ENCOUNTER 2021-11-08 16:13 | Outpatient (REF) | payer OTHER, SELFPAY ==
--- NOTE | ~2021-11-08 | XR_ITS ---
EXAMINATION: XR CHEST CLINICAL INFORMATION: Covid infection COMPARISON: Previous chest x-ray most recent May 2021 TECHNIQUE: 2 views of the chest were obtained. FINDINGS: No significant abnormality is noted involving the heart, lungs, mediastinum, bony thorax or soft tissues. XR/XR chest 2V IMPRESSION: Unremarkable examination.
== END 2021-11-08 16:14 | disposition home or self-care (01) ==
LOC: HO.XRAY 16:13
PROVIDERS: PCP Internal Medicine; Visit Provider Hospitalist
DX: U07.1 COVID-19 (principal)
CPT/HCPCS: 71046

== ENCOUNTER 2021-11-18 17:22 | Outpatient (REF) | payer OTHER, SELFPAY | END 2021-11-18 17:23 | disposition home or self-care (01) | LOC: HO.LNP 17:22 | PROVIDERS: Visit Provider Internal Medicine | DX: R19.7 Diarrhea, unspecified (principal) | CPT/HCPCS: 87338 ==

== ENCOUNTER → 2021-12-10 14:25 | Outpatient (BNVA) | payer OTHER, SELFPAY | PROVIDERS: PCP Internal Medicine; Visit Provider Hospitalist | DX: U07.1 COVID-19 (principal); J45.50 Severe persistent asthma, uncomplicated; J30.9 Allergic rhinitis, unspecified; Z79.899 Other long term (current) drug therapy | CPT/HCPCS: 99212 ==

== ENCOUNTER 2022-03-03 08:14 | Outpatient (REF) | payer OTHER, SELFPAY ==
--- NOTE | 2022-03-03 08:29 | ECG_ITS ---
Test Reason : chest pain Blood Pressure : / mmHG Vent. Rate : 079 BPM Atrial Rate : 079 BPM P-R Int : 128 ms QRS Dur : 088 ms QT Int : 360 ms P-R-T Axes : 066 018 025 degrees QTc Int : 412 ms Normal sinus rhythm with sinus arrhythmia Normal ECG When compared with ECG of 08-SEP-2020 16:06, Nonspecific T wave abnormality has replaced inverted T waves in Inferior leads Nonspecific T wave abnormality no longer evident in Anterolateral leads Referred By: Norma Keane Electronically Signed By:Carter Woodson
[2022-03-03 08:30] LABS: MANUAL DIFF FLAG NO
[2022-03-03 08:54] LABS: Basophils Percent Auto 0.4 % (0-2); Eosinophils Absolute Auto 0.1 X10*3/uL (0.0-0.4); Eosinophils Percent Auto 1.8 % (0-4); Hematocrit 34.5 % (37.0-47.0); Imm Gran Abs Auto 0.01 X10*3/uL (0.00-0.03); Imm Gran Pct Auto 0.1 % (0.0-0.4); Lymphocytes Absolute Auto 1.7 X10*3/uL (1.2-4.9); Mean Corpuscular HGB Conc 31.9 g/dl (31.0-35.0); Mean Corpuscular Hemoglobin 24.9 pg (27.0-33.0); Mean Corpuscular Volume 78.2 fL (80.0-98.0); Mean Platelet Volume 8.5 fL (9.4-12.3); Monocytes Absolute Auto 0.5 X10*3/uL (0.1-1.2); Monocytes Percent Auto 6.7 % (2-11); Neutrophils Absolute Auto 5.2 x10*3/uL (2.0-8.3); Platelet Count 307 X10*3/uL (160-400); Red Blood Count 4.41 X10*6/uL (4.20-5.50); Red Cell Distribution Width 13.3 % (11.0-16.0); White Blood Count 7.6 X10*3/uL (4.8-10.8)
[2022-03-03 09:29] LABS: Iron 57 mcg/dL (30-160); Percent Iron Saturation 15 % (15-50); Total Iron Binding Capacity 368 mcg/dL (228-428); Unsaturated Iron Binding 311 ug/dL
== END 2022-03-03 08:15 | disposition home or self-care (01) ==
LOC: HO.LAB 08:14
PROVIDERS: PCP Internal Medicine; Visit Provider Internal Medicine
DX: R07.9 Chest pain, unspecified (principal); D64.9 Anemia, unspecified
CPT/HCPCS: 36415; 83540; 85025; 93005

== ENCOUNTER 2022-03-08 07:53 | Outpatient (REF) | payer OTHER, SELFPAY ==
--- NOTE | ~2022-03-08 | MM_ITS ---
EXAMINATION: MM SCREENING DIGITAL BREAST TOMOSYNTHESIS, BILATERAL CLINICAL INFORMATION: Screening. Asymptomatic. The lifetime risk of breast cancer based on the Tyrer-Cuzick Model is 16.9%. COMPARISON: Mammography: None. TECHNIQUE: Digital breast tomosynthesis is performed in both the craniocaudal and mediolateral oblique views along with computer-aided detection (CAD). Synthesized 2D images are generated from the tomosynthesis. FINDINGS: The breasts are heterogeneously dense, which may obscure small masses (ACR BI-RADS breast composition Category c). Within the right breast about the upper outer aspect, there is the appearance of serpiginous density which may be ductal in origin and spot compression views are recommended. About the anterior upper outer aspect, there is a small circumscribed lymph node with fatty cleft. Within the inferomedial aspect of the left breast, approximately 8 cm from the nipple, there is a partially circumscribed density measuring 8 mm in diameter. Spot compression view is recommended. MM/MM tomosynthesis screening BI IMPRESSION: Bilateral breast densities as described. ASSESSMENT: BI-RADS 0: Incomplete - Need Additional Imaging Evaluation RECOMMENDATION: 1. Additional views of the bilateral breasts. 2. Targeted ultrasound if warranted after review of the additional views. 3. Radiology department staff will contact the patient for additional imaging. This patient's information was entered into a reminder system with a target due date for their next mammogram.
== END 2022-03-08 07:54 | disposition home or self-care (01) ==
LOC: HO.MAMMO 07:53
PROVIDERS: PCP Internal Medicine; Visit Provider Internal Medicine
DX: Z12.31 Encounter for screening mammogram for malignant neoplasm of breast (principal)
CPT/HCPCS: 77063; 77067

== ENCOUNTER 2022-03-11 15:12 | Outpatient (REF) | payer OTHER, SELFPAY ==
[2022-03-11 15:39] LABS: MANUAL DIFF FLAG NO
[2022-03-11 15:43] LABS: Basophils Percent Auto 0.5 % (0-2); Eosinophils Absolute Auto 0.2 X10*3/uL (0.0-0.4); Eosinophils Percent Auto 1.9 % (0-4); Hematocrit 36.2 % (37.0-47.0); Hemoglobin 11.8 g/dl (12.0-16.0); Imm Gran Abs Auto 0.03 X10*3/uL (0.00-0.03); Imm Gran Pct Auto 0.4 % (0.0-0.4); Lymphocytes Percent Auto 24.2 % (20-40); Mean Corpuscular HGB Conc 32.6 g/dl (31.0-35.0); Mean Corpuscular Hemoglobin 25.3 pg (27.0-33.0); Mean Corpuscular Volume 77.7 fL (80.0-98.0); Mean Platelet Volume 8.3 fL (9.4-12.3); Monocytes Absolute Auto 0.4 X10*3/uL (0.1-1.2); Monocytes Percent Auto 4.8 % (2-11); Neutrophils Absolute Auto 5.5 x10*3/uL (2.0-8.3); Neutrophils Percent Auto 68.2 % (45-73); Platelet Count 310 X10*3/uL (160-400); Red Blood Count 4.66 X10*6/uL (4.20-5.50); Red Cell Distribution Width 13.7 % (11.0-16.0); White Blood Count 8.1 X10*3/uL (4.8-10.8)
[2022-03-11 16:20] LABS: Erythrocyte Sedimentation Rate 25 MM/HR (0-20)
[2022-03-15 05:32] LABS: Immunoglobulin E 11 kU/L (<OR=114)
[2022-03-15 13:46] LABS: Anti DNA DS Antibody 1 IU/mL
[2022-03-15 14:07] LABS: Anti Nuclear Antibody Screen POSITIVE (NEGATIVE)
[2022-03-16 16:06] LABS: Cyclic Citrullinated Peptide <16 UNITS
== END 2022-03-11 15:13 | disposition home or self-care (01) ==
LOC: HO.LAB 15:12
PROVIDERS: PCP Internal Medicine; Visit Provider Hospitalist
DX: R76.8 Other specified abnormal immunological findings in serum (principal); J45.50 Severe persistent asthma, uncomplicated; J30.9 Allergic rhinitis, unspecified; U07.1 COVID-19
CPT/HCPCS: 36415; 82785; 85025; 85652; 86038; 86039; 86200; 86225; 99212

== ENCOUNTER 2022-03-15 08:38 | Outpatient (REF) | payer OTHER, SELFPAY ==
--- NOTE | ~2022-03-15 | US_ITS ---
EXAMINATION: MM DIAGNOSTIC DIGITAL BREAST TOMOSYNTHESIS, BILATERAL US DIAGNOSTIC ULTRASOUND BREAST, BILATERAL CLINICAL INFORMATION: Recall from baseline screening for nodule 8:00 left breast and serpiginous grouped nodularity mid outer right breast. Family history premenopausal breast cancer, mother. COMPARISON: Mammography: 03/08/2022 (baseline, BI-RADS 0). TECHNIQUE: Digital breast tomosynthesis is performed. 2D images are generated from the tomosynthesis. The following views are obtained: Spot right CC, right MLO, spot left CC, spot left ML. Ultrasound of both breasts is targeted to the areas of mammographic interest using grayscale imaging and color Doppler without and with harmonics. FINDINGS: Mammography: The breasts are heterogeneously dense, which may obscure small masses (ACR BI-RADS breast composition Category c). Breast tissue composition borders on average fibroglandular. The nodule left breast is less conspicuous on the spot views. There is no architectural abnormality. Additional views right breast confirm grouped serpiginous nodularity. No spiculation. No dominant nodule. Ultrasound: Ultrasound left breast demonstrates simple cyst 8:00 position 8 cm from nipple measuring approximately 10 x 5 mm. There is no solid mass or architectural abnormality. The cyst corresponds to the finding on baseline mammography. Ultrasound right breast demonstrates benign-appearing grouped fibrocystic changes posterior breast 8:00 position. There is some minor duct ectasia under 3 mm in the area of cystic change. The cysts are all small and there is no dominant cyst or complicated cyst. No solid mass or architectural abnormality. No abnormal color flow. Management: Results are discussed with the patient at time of visit, using an manager of planning. Given the family history, the grouped fibrocystic changes with some minor duct ectasia posterior 8:00 right breast will be reassessed with mammography in 6 months. Left breast may be reassessed again at time of annual mammography. Availability of genetic testing was also discussed. US/US breast LT limited IMPRESSION: Right: -Grouped benign-appearing fibrocystic changes and minor duct ectasia posterior outer right breast. Left: -Incidental simple cyst inner quadrant. ASSESSMENT: BI-RADS 3: Probably Benign RECOMMENDATION: Diagnostic right mammography in 6 months. This patient's information was entered into a reminder system with a target due date for their next mammogram.
--- NOTE | ~2022-03-15 | US_ITS ---
EXAMINATION: MM DIAGNOSTIC DIGITAL BREAST TOMOSYNTHESIS, BILATERAL US DIAGNOSTIC ULTRASOUND BREAST, BILATERAL CLINICAL INFORMATION: Recall from baseline screening for nodule 8:00 left breast and serpiginous grouped nodularity mid outer right breast. Family history premenopausal breast cancer, mother. COMPARISON: Mammography: 03/08/2022 (baseline, BI-RADS 0). TECHNIQUE: Digital breast tomosynthesis is performed. 2D images are generated from the tomosynthesis. The following views are obtained: Spot right CC, right MLO, spot left CC, spot left ML. Ultrasound of both breasts is targeted to the areas of mammographic interest using grayscale imaging and color Doppler without and with harmonics. FINDINGS: Mammography: The breasts are heterogeneously dense, which may obscure small masses (ACR BI-RADS breast composition Category c). Breast tissue composition borders on average fibroglandular. The nodule left breast is less conspicuous on the spot views. There is no architectural abnormality. Additional views right breast confirm grouped serpiginous nodularity. No spiculation. No dominant nodule. Ultrasound: Ultrasound left breast demonstrates simple cyst 8:00 position 8 cm from nipple measuring approximately 10 x 5 mm. There is no solid mass or architectural abnormality. The cyst corresponds to the finding on baseline mammography. Ultrasound right breast demonstrates benign-appearing grouped fibrocystic changes posterior breast 8:00 position. There is some minor duct ectasia under 3 mm in the area of cystic change. The cysts are all small and there is no dominant cyst or complicated cyst. No solid mass or architectural abnormality. No abnormal color flow. Management: Results are discussed with the patient at time of visit, using an motor vehicle parts interpreter. Given the family history, the grouped fibrocystic changes with some minor duct ectasia posterior 8:00 right breast will be reassessed with mammography in 6 months. Left breast may be reassessed again at time of annual mammography. Availability of genetic testing was also discussed. US/US breast RT limited IMPRESSION: Right: -Grouped benign-appearing fibrocystic changes and minor duct ectasia posterior outer right breast. Left: -Incidental simple cyst inner quadrant. ASSESSMENT: BI-RADS 3: Probably Benign RECOMMENDATION: Diagnostic right mammography in 6 months. This patient's information was entered into a reminder system with a target due date for their next mammogram.
== END 2022-03-15 08:39 | disposition home or self-care (01) ==
LOC: HO.MAMMO 08:38
PROVIDERS: PCP Internal Medicine; Visit Provider Internal Medicine
DX: R92.2 Inconclusive mammogram (principal)
CPT/HCPCS: 76642; 77062; 77066

== ENCOUNTER 2022-03-23 13:42 | Outpatient (REF) | payer OTHER, SELFPAY | END 2022-03-23 13:43 | disposition home or self-care (01) | LOC: HO.LNP 13:42 | PROVIDERS: Visit Provider Internal Medicine | DX: R19.7 Diarrhea, unspecified (principal) | CPT/HCPCS: 87338 ==

== ENCOUNTER → 2022-04-27 11:06 | Outpatient (BNVA) | payer OTHER, SELFPAY | PROVIDERS: PCP Internal Medicine; Visit Provider Internal Medicine | DX: R10.13 Epigastric pain (principal); D50.9 Iron deficiency anemia, unspecified; R68.81 Early satiety; K52.9 Noninfective gastroenteritis and colitis, unspecified; A04.8 Other specified bacterial intestinal infections; Z79.899 Other long term (current) drug therapy | CPT/HCPCS: 99202; 99212 ==

== ENCOUNTER 2022-05-05 11:45 | Outpatient (REF) | payer OTHER, SELFPAY ==
[2022-05-05 13:23] LABS: C Reactive Protein 1.11 mg/dL (< or = 0.50)
[2022-05-05 13:39] LABS: TSH reflex Free T4 0.98 uIU/mL (0.32-4.0)
[2022-05-05 14:06] LABS: Folate 19.2 ng/mL (> or = 4.0); Vitamin B12 748 pg/mL (200-900)
[2022-05-07 01:33] LABS: Hematocrit 35.1 % (35.0-45.0); Hemoglobin 11.6 g/dL (11.7-15.5); MCV 75.6 fL (80.0-100.0); RBC 4.64 Million/uL (3.80-5.10); RDW 13.4 % (11.0-15.0)
[2022-05-07 14:17] LABS: Immunoglobulin A 408 mg/dL (47-310)
[2022-05-12 15:12] LABS: Transglutaminase IgA <1.0 U/mL
== END 2022-05-05 11:46 | disposition home or self-care (01) ==
LOC: HO.LAB 11:45
PROVIDERS: PCP Internal Medicine; Visit Provider Internal Medicine
DX: R10.13 Epigastric pain (principal); K52.9 Noninfective gastroenteritis and colitis, unspecified; R71.8 Other abnormality of red blood cells; R76.8 Other specified abnormal immunological findings in serum; R20.0 Anesthesia of skin; M79.7 Fibromyalgia
CPT/HCPCS: 36415; 82607; 82746; 82784; 83020; 84443; 85014; 85018; 85041; 86140; 86364; 99202

== ENCOUNTER → 2022-05-06 15:16 | Outpatient (BNVA) | payer OTHER, SELFPAY | PROVIDERS: PCP Internal Medicine; Visit Provider Hospitalist | DX: J45.50 Severe persistent asthma, uncomplicated (principal); J30.9 Allergic rhinitis, unspecified | CPT/HCPCS: 99212 ==

== ENCOUNTER 2022-05-09 09:25 | Outpatient (REF) | payer OTHER, SELFPAY ==
[2022-05-14 22:48] LABS: Calprotectin, Fecal 13 mcg/g
== END 2022-05-09 09:26 | disposition home or self-care (01) ==
LOC: HO.LNP 09:25
PROVIDERS: Visit Provider Internal Medicine
DX: R10.13 Epigastric pain (principal); K52.9 Noninfective gastroenteritis and colitis, unspecified
CPT/HCPCS: 83993

== ENCOUNTER 2022-06-16 08:03 | Outpatient (REF) | payer OTHER, SELFPAY ==
--- NOTE | ~2022-06-16 | US_ITS ---
EXAMINATION: US ABDOMEN COMPLETE CLINICAL INFORMATION: Epigastric pain. COMPARISON: Renal ultrasound 03/18/2019. X-ray KUB 03/14/2019. CT abdomen 11/01/2017. Ultrasound abdomen limited 10/23/2017. TECHNIQUE: Real-time imaging of the abdominal viscera. FINDINGS: PANCREAS: Normal. ABDOMINAL AORTA: The proximal, mid, and distal segments are normal in caliber. INFERIOR VENA CAVA: Visualized portions are normal. LIVER: Normal. The liver is normal in size. The liver contour is normal. Parenchymal echogenicity is normal. No focal hepatic lesion. There is no intrahepatic biliary duct dilatation seen. GALLBLADDER: Gallbladder wall thickness measures 0.26 cm. The gallbladder is physiologically distended without evidence of stones, sludge, polyps, wall thickening or pericholecystic fluid. COMMON BILE DUCT: Normal in caliber measuring 0.6 cm in diameter. RIGHT KIDNEY: The kidney measures 12.1 cm in maximum dimension. There is normal cortical thickness. No echogenic stones, cysts or hydronephrosis seen. LEFT KIDNEY: There are 3 anechoic cysts, the largest lower pole cyst measuring 1.0 x 1.0 x 1.0 cm. There is a nonobstructive echogenic stone mid pole measuring 0.2 x 0.1 x 0.2 cm. No additional echogenic stones seen. There is no hydronephrosis noted. No solid mass noted. The kidney measures 11.1 cm in maximum dimension. SPLEEN: There is a mild complex cyst with echogenic calcified rim. The spleen measures 9.5 cm in maximum dimension. FREE FLUID: None. US/US abdomen complete IMPRESSION: Complex splenic cyst with calcified rim. Nonobstructive echogenic left renal cysts and a solitary nonobstructive echogenic calculus.
== END 2022-06-16 08:04 | disposition home or self-care (01) ==
LOC: HO.US 08:03
PROVIDERS: Visit Provider Internal Medicine
DX: R10.13 Epigastric pain (principal)
CPT/HCPCS: 76700

== ENCOUNTER → 2022-07-13 14:48 | Outpatient (BNV) | payer OTHER, SELFPAY | PROVIDERS: PCP Internal Medicine; Referring Provider Internal Medicine; Visit Provider Internal Medicine | DX: D50.9 Iron deficiency anemia, unspecified (principal) | CPT/HCPCS: 99204; 99213; 99214; G2211 ==

== ENCOUNTER → 2022-07-29 14:45 | Outpatient (BNVA) | payer OTHER, SELFPAY | PROVIDERS: PCP Internal Medicine; Visit Provider Hospitalist | DX: J45.50 Severe persistent asthma, uncomplicated (principal); J30.9 Allergic rhinitis, unspecified; Z79.899 Other long term (current) drug therapy; Z23 Encounter for immunization | CPT/HCPCS: 90471; 90686; 99212 ==

== ENCOUNTER 2022-08-31 13:40 | Outpatient (REF) | payer OTHER, SELFPAY ==
--- NOTE | ~2022-08-31 | XR_ITS ---
EXAMINATION: XR hand RT 2V CLINICAL INFORMATION: Pain COMPARISON: Hand radiographs 09/27/2018 TECHNIQUE: 3 views of the hand FINDINGS: No fracture or dislocation. Joint spaces are maintained. No cortical erosion. Soft tissues are unremarkable. XR/XR hand RT 2V IMPRESSION: No acute osseous abnormality.
== END 2022-08-31 13:41 | disposition home or self-care (01) ==
LOC: HO.XRAY 13:40
PROVIDERS: PCP Internal Medicine; Visit Provider Internal Medicine
DX: M79.641 Pain in right hand (principal)
CPT/HCPCS: 73120

== ENCOUNTER 2022-09-08 11:12 | Day surgery (SDC) | payer OTHER, SELFPAY ==
[2022-09-02 11:35] VITALS: BMI 36.5
--- NOTE | 2022-09-07 11:45 | HO.ANESPROP2 ---
Documented by User: Ana Burris NP 09/07/22 11:46 HPI - Anesthesia Eval Consult details Narrative: 36yo F for Upper Endoscopy and Colonoscopy PMF Active Problems Active Problems: All Active Problems (Updated 09/07/22 @ 10:22 by Tessa Curtis RN) Chronic allergic rhinitis (Acute) Precordial chest pain (Acute) COVID-19 (Acute) Asthma (Acute) Family history of breast cancer in mother (Acute) Bilateral hand numbness (Acute) Microcytic anemia (Chronic) Right hand pain (Acute) AKIRA positive (Acute) H. pylori infection (Acute) Allergic rhinitis (Acute) Fibromyalgia (Acute) Obese (Acute) GERD (gastroesophageal reflux disease) (Acute) Allergy to mold spores (Acute) Hypovitaminosis D (Acute) Migraines (Acute) Past Medical History Medical History Allergic rhinitis Allergy to mold spores AKIRA positive Asthma Chest pain Diabetes mellitus Fibromyalgia GERD (gastroesophageal reflux disease) H. pylori infection Hypovitaminosis D Migraines Obese Family History Family History Father CVD (cardiovascular disease) Mother Chronic mental illness Breast cancer Schizophrenia Mental health disorder Maternal Grandmother Hypertension Stroke Paternal Grandmother Breast cancer Paternal Aunt Breast cancer Paternal Aunt Cancer of unknown origin Family/Other Chronic mental illness Mental health disorder Surgical History Surgical History History of section History of tubal ligation Social History Social History Household Members: Family Housing: House Alcohol intake: never Patient Tobacco Use Status: Never used Tobacco e-Cigarette/Vaping Use: Never Used Second Hand Smoke Exposure: No Are you DNR?: No Advance Directives: No Advance Directives Information Provided: Yes Nutrition Risks: No Nutritional Risk FDLMP: end july service: No Current occupational status: employed Cognitive needs: No Hearing needs: No Vision needs: No Meds Allergies Allergy/AdvReac Type Severity Reaction Status Date / Time gabapentin AdvReac Intermediate joint pain Verified 08/02/22 07:46 sumatriptan [SUMATRIPTAN] AdvReac Intermediate Nausea, Verified 08/02/22 07:46 vomiting, Home Medications Medication Instructions Recorded Confirmed Last Taken Type ibuprofen 800 mg tablet 800 mg PO TID 05/06/22 08/12/22 Unknown History Exam Exam Date and Time: September 07, 2022 1145 Height,Weight and Vital Signs: Height 5 ft Weight 84.822 kg Narrative Narrative: EKG 02/2022 Vent. Rate : 079 BPM ? ? Atrial Rate : 079 BPM ?? P-R Int : 128 ms? QRS Dur : 088 ms ? ? QT Int : 360 ms ? ? ? P-R-T Axes : 066 018 025 degrees ?? QTc Int : 412 ms ? Normal sinus rhythm with sinus arrhythmia Normal ECG When compared with ECG of 08-SEP-2020 16:06, Nonspecific T wave abnormality has replaced inverted T waves in Inferior leads Nonspecific T wave abnormality no longer evident in Anterolateral leads ECHO 2020 Conclusions: - Essentially normal study ? Assessment and Plan Assessment Anesthesia Assessment: Chart Reviewed Documented by User: Naila Davenport MD 09/08/22 12:13 PMFSH Past Medical History Medical History Allergic rhinitis Allergy to mold spores AKIRA positive Asthma Chest pain Diabetes mellitus Fibromyalgia GERD (gastroesophageal reflux disease) H. pylori infection Hypovitaminosis D Migraines Obese Family History Family History Father CVD (cardiovascular disease) Mother Chronic mental illness Breast cancer Schizophrenia Mental health disorder Maternal Grandmother Hypertension Stroke Paternal Grandmother Breast cancer Paternal Aunt Breast cancer Paternal Aunt Cancer of unknown origin Family/Other Chronic mental illness Mental health disorder Surgical History Surgical History History of section History of tubal ligation History of Problems with Anesthesia: No Social History Social History Household Members: Family Housing: House Alcohol intake: never Patient Tobacco Use Status: Never used Tobacco e-Cigarette/Vaping Use: Never Used Second Hand Smoke Exposure: No Are you DNR?: No Advance Directives: No Advance Directives Information Provided: Yes Nutrition Risks: No Nutritional Risk FDLMP: end july service: No Current occupational status: employed Cognitive needs: No Hearing needs: No Vision needs: No Meds Allergies Allergy/AdvReac Type Severity Reaction Status Date / Time gabapentin AdvReac Intermediate joint pain Verified 08/02/22 07:46 sumatriptan [SUMATRIPTAN] AdvReac Intermediate Nausea, Verified 08/02/22 07:46 vomiting, Home Medications Medication Instructions Recorded Confirmed Last Taken Type ibuprofen 800 mg tablet 800 mg PO TID 05/06/22 08/12/22 Unknown History Exam Airway Mallampati Class: I TM Dist: >3cm Neck ROM: Full Loose/Missing/Broken Teeth: No Heart: RRR Lungs: CTA Assessment and Plan Assessment Anesthesia Assessment: Anesthesia Plan Discussed Final Anesthetic Review History of Problems with Anesthesia: No NPO: Yes ASA Class: II Final Preanesthetic Review: Meds/Allgs Chart Reviewed, Consent Obtained/Reviewed and Anes Risks/Benef Reviewed Patient Risk: Low Procedure Risk: Intermediate Anesthetic Plan Anesthetic Plan: MAC: Disposition: Standard PACU
[2022-09-08 11:53] VITALS: BP 125/82; PULSE 108; RESP 18; TEMP 36.7; O2SAT 100
[2022-09-08] MEDS: Lactated Ringers 1,000 ML 100 ML IVCONT (11:58)
--- NOTE | 2022-09-08 12:00 | MHC.SHP ---
Pre-Procedural Eval Section A Date of Service: 09/08/22 Section B Chief Complaint: Diarrhea, anemia, hx of H pylori Details of Present Illness: 36-year-old female past medical history of moderate asthma, multiple environmental allergies, hypertension, who was seen in office for H pylori infection, epigastric pain, anemia and chronic diarrhea here for EGD/colo. Present Medications: see Short Stay Collaborative assessment Medical History: Significant History (as above ) History of Previous Operations: Relevant previous surgery/procedure and date(s) ( History of section History of tubal ligation) Allergies: Allergies Allergy/AdvReac Type Severity Reaction Status Date / Time gabapentin AdvReac Intermediate joint pain Verified 08/02/22 07:46 sumatriptan [SUMATRIPTAN] AdvReac Intermediate Nausea, Verified 08/02/22 07:46 vomiting, Review of Systems Review of Systems Comment: Ten point ROS negative except as above Exam Exam Comment: Gen appear: No acute distress, well nourished HEENT: no icterus Chest: No overt resp distress Abd: soft, nontender, nondistended Psych: Stable affect, answering questions appropriately Neuro: A/Ox3 noted to move all extremities spontaneously Ext: no peripheral edema Plan I have reviewed the history and physical and performed a pertinent physical examination on my patient. No changes have occurred unless specified. Time Spent With Patient Time: Total time managing care of this patient today ____ minutes.
--- NOTE | 2022-09-08 12:03 | P.OP_ITS ---
Operative Note Operative Note Date of Service: 09/08/22 Narrative: Procedure:?Esophagogastroduodenoscopy and Colonoscopy Indication:?Hx of H pylori, diarrhea, anemia Endoscopist:?Patricia Samuels MD Anesthesia Provider:?Dr Klaus Arroyo Anesthesia type:?MAC Instrument:?Olympus GIF-H190 and PCF-H190L EGD Procedure:?? The procedure, indications, preparation and potential complications were reviewed with the patient with the help of a equalizing saw operator, who indicated understanding and gave written informed consent to proceed. A physical exam was performed. The endoscope was introduced through the mouth, and advanced to the second part of duodenum. The mucosa was carefully examined on slow withdrawal of the endoscope. The patient tolerated the procedure well. There were no immediate complications.? ? EGD Findings:? * Esophagus:? Normal mucosa noted in the entire esophagus. The Z line was at 38 cm. Cold forceps biopsies were taken from mid and lower esophagus to r/o eosinophilic esophagitis. * Stomach:? Normal gastric mucosa.?Cold forceps mapping biopsies were obtained as per Marcella protocol to r/o gastric intestinal metaplasia as pt has longstanding hx of H pylori with failed treatment. * Duodenum:? Normal mucosa was noted in the whole of the examined duodenum. Biopsies were taken from duodenal bulb and second portion of the duodenum to rule out celiac sprue. Colonoscopy Procedure:? The patient was then turned for the colonoscopy. A digital rectal exam was performed which was normal. The colonoscope was then inserted through the anus and advanced through the colon to the cecum at 75 cm and terminal ileum. The appendiceal orifice and ileocecal valve was identified.? Mucosa was carefully examined under high definition white light as the instrument was slowly withdrawn in a retrograde panoramic fashion. Retroflexion was performed in ascending colon and rectum. The procedure was not difficult. There were no immediate obvious complications. The quality of the prep was BBPS: 3+2+3 = adequate Withdrawal time 10 minutes. Limitations: No limitations.? Findings: Mucosa: Normal mucosa in whole colon and terminal ileum. Cold forceps biopsies were obtained from right and left side of the colon to r/o microscopic colitis. Protruding lesions: * Medium internal hemorrhoids without stigmata of recent bleeding. Impression:? * Normal esophagus (biopsy) * Normal stomach (mapping biopsy) * Normal duodenum (biopsy) * Abnormal IC valve mucosa (biopsy) * Normal colon and terminal mucosa (biopsy) * Internal hemorrhoids Recommendations:?? * Follow path results. * If GIM confirmed in the background of H pylori, will need retreatment - will consider rifabutin based treatment given previous tx failure x 2. * Repeat colonoscopy for CRC screening in 10 years Above has been reviewed with the patient.
--- NOTE | 2022-09-08 12:24 | PC.NURSE ---
author attempted on IV. Elicia Pearson RN attempted one IV. Dr. Arroyo inserted IV.
[2022-09-08 13:16] VITALS: BP 107/57; PULSE 90; RESP 18; TEMP 36.4; O2SAT 100
[2022-09-08 13:36] VITALS: BP 113/72; PULSE 87; RESP 18; TEMP 36.4; O2SAT 100
== END 2022-09-08 14:26 | disposition home or self-care (01) ==
PROVIDERS: PCP Internal Medicine; Visit Provider Internal Medicine
PROC: (CPT 45380; principal; 2022-09-08 12:50)
DX: R19.7 Diarrhea, unspecified (principal); D64.9 Anemia, unspecified; K29.50 Unspecified chronic gastritis without bleeding; B96.81 Helicobacter pylori [H. pylori] as the cause of diseases classified elsewhere; K21.9 Gastro-esophageal reflux disease without esophagitis; Z86.19 Personal history of other infectious and parasitic diseases; I10 Essential (primary) hypertension; M79.7 Fibromyalgia; E55.9 Vitamin D deficiency, unspecified; J45.909 Unspecified asthma, uncomplicated; E66.9 Obesity, unspecified; Z68.36 Body mass index [BMI] 36.0-36.9, adult; E11.9 Type 2 diabetes mellitus without complications; Z79.51 Long term (current) use of inhaled steroids; Z79.899 Other long term (current) drug therapy; Z88.8 Allergy status to other drugs, medicaments and biological substances; Z77.120 Contact with and (suspected) exposure to mold (toxic)
CPT/HCPCS: 45380; 43239; 88305; 88313; 88342; J3010

== ENCOUNTER 2022-09-16 13:31 | Outpatient (REF) | payer OTHER, SELFPAY ==
--- NOTE | ~2022-09-16 | MM_ITS ---
EXAMINATION: MM DIAGNOSTIC DIGITAL BREAST TOMOSYNTHESIS, RIGHT CLINICAL INFORMATION: Right breast six-month follow-up for density. Mother had breast cancer with age of diagnosis at 43. COMPARISON: Mammography: 03/15/2022 and 03/08/2022. TECHNIQUE: Digital breast tomosynthesis is performed in both the craniocaudal and mediolateral oblique views along with computer-aided detection (CAD). Synthesized 2D images are generated from the tomosynthesis. Additional spot compression view of the right breast in mediolateral oblique projection performed. FINDINGS: The breasts are heterogeneously dense, which may obscure small masses (ACR BI-RADS breast composition Category c). There is a stable parenchymal pattern of the serpiginous grouped nodularity within the lateral aspect of the right breast again identified without change. There is a question of an irregular density about the superior aspect of the right breast on mediolateral oblique projection only for which spot compression view was performed. The region partially effaced and has a lucent central portion however ultrasound will be performed due to the architectural appearance and some residual density as well as patient's family history. Patient could not wait to have ultrasound examination performed and will return next week for this. Results are provided to the patient at time of visit by the technologist. MM/MM tomosynthesis diagnostic RT IMPRESSION: Stable pattern of serpiginous grouped nodularity within the lateral right breast. Region of density which partially effaces within the superior aspect of the right breast for which patient will return at a later date for ultrasound next week as she could not wait for the study today. ASSESSMENT: BI-RADS 0: Incomplete - Need Additional Imaging Evaluation RECOMMENDATION: Right breast ultrasound.
== END 2022-09-16 13:32 | disposition home or self-care (01) ==
LOC: HO.MAMMO 13:31
PROVIDERS: PCP Internal Medicine; Visit Provider Internal Medicine
DX: R92.2 Inconclusive mammogram (principal)
CPT/HCPCS: 77061; 77065

== ENCOUNTER 2022-09-19 13:55 | Outpatient (REF) | payer OTHER, SELFPAY ==
--- NOTE | ~2022-09-19 | US_ITS ---
EXAMINATION: US DIAGNOSTIC ULTRASOUND BREAST, RIGHT CLINICAL INFORMATION: Asymmetric density superior right breast. COMPARISON: 09/16/2022 and studies dating back to 03/08/2022. TECHNIQUE: Ultrasound of the breast is performed with real-time randhawa scale imaging and color Doppler. FINDINGS: Scanning of the superior right breast was performed. No abnormal cystic or solid mass was identified. No region of abnormal distal sound shadowing was seen. No edematous change within the parenchyma is noted. Results are provided to the patient at time of visit by the technologist. US/US breast RT limited IMPRESSION: No suspicious ultrasound abnormality superior aspect of the right breast identified. ASSESSMENT: BI-RADS 3: Probably benign. RECOMMENDATION: Diagnostic right breast study at time of yearly mammogram to assess for stability superior aspect of the right breast as well as the region of tubular ectasia seen previously. This patient's information was entered into a reminder system with a target due date for their next mammogram.
== END 2022-09-19 13:56 | disposition home or self-care (01) ==
LOC: HO.MAMMO 13:55
PROVIDERS: Visit Provider Internal Medicine
DX: N64.89 Other specified disorders of breast (principal)
CPT/HCPCS: 76642

== ENCOUNTER → 2022-09-21 07:58 | Outpatient (BNVA) | payer OTHER, SELFPAY | PROVIDERS: PCP Internal Medicine; Referring Provider Internal Medicine; Visit Provider Internal Medicine | DX: D50.9 Iron deficiency anemia, unspecified (principal); A04.8 Other specified bacterial intestinal infections | CPT/HCPCS: 99212 ==

== ENCOUNTER → 2022-10-05 08:08 | Outpatient (BNVA) | payer OTHER, SELFPAY | PROVIDERS: PCP Internal Medicine; Visit Provider Internal Medicine Rheumatology | DX: M79.7 Fibromyalgia (principal); R76.8 Other specified abnormal immunological findings in serum | CPT/HCPCS: 99212 ==

== ENCOUNTER 2022-10-12 08:00 | Outpatient (RCR) | payer OTHER, SELFPAY ==
--- NOTE | 2022-10-12 09:03 | MHC.OT.OP ---
[address] [phone] F: [phone] Occupational Therapy Progress Note Diagnosis: Right hand pain Date of Surgery: Date of Evaluation: 08/31/22 Treatments to Date: 6 Cancellations to Date: 1 No Shows to Date: Subjective: Pt reports improvement for one day after last appointment. Pain at thumbs ,middle finger and palm during the day . Right hand numbness every morning improved with night wrist orthosis Pain Score: 7 Pain Location: Right hand > left hand Objective Measures: [place] Monofilaments Right impaired protective sensation D1-3, Diminished light touch D4 and D5 Left diminished light touch D1-D5 Status: Not Progressing Assessment: Pt with sx of severe CTS. She reports high pain and waking with hand paresthesia in the am with some improvement with night orthosis. Pt is motivated and indep with her HEP and protection techniqes Pt will benefit from EMG/NCV to further assess CTS Weaning to self management Short Term Goals: Demo compliance with night orthosis for CTS MET Demo indep with HEP MET Demo awareness of protection techniques with daily activities with activity modifications as needed MET Dec pain to < 5/10 Assisted Goals: Indep in self management of CTS Dec pain to 0 at rest Quick DASH score < 30 pts with activity modifications as needed Frequency and Duration: The patient will be seen 2x , 2 wks Treatment Plan: Therapeutic Exercise Home Exercise Program Splinting Patient Education Ultrasound Will benefit from EMG/NCV Electronically Signed By: Mildred Junior OT CHT CLT Reviewed/agree with student documentation: N/A Therapist:
--- NOTE | 2022-11-08 14:53 | MHC.OT.DC ---
[address] [phone] F: [phone] Occupational Therapy Discharge Note Patient Name: Saloni Khanna Provider: Norma Keane Diagnosis: Right hand pain Date of Surgery: Date of Evaluation: 08/31/22 Date of Discharge: 11/03/22 Treatments to Date: 6 Cancellations to Date: 1 No Shows to Date: 1 Discharge Status: Recommend MD Follow-up Discharge Summary: Pt with sx of severe CTS. She reports high pain and waking with hand paresthesia in the am with some improvement with night orthosis. Pt is motivated and indep with her HEP and protection techniques Pt will benefit from EMG/NCV to further assess CTS Electronically Signed By: Mildred Junior OT CHT CLT Reviewed/agree with student documentation: N/A Therapist: Please Sign and return to therapist, thank you for your referral.
== END 2022-11-03 14:00 | disposition home or self-care (01) ==
LOC: HO.OT 08:00
PROVIDERS: PCP Internal Medicine; Visit Provider Internal Medicine
DX: M79.641 Pain in right hand (principal)
CPT/HCPCS: 29125; 97035; 97110; 97166; 97760

== ENCOUNTER 2022-11-09 00:03 | Emergency (ER) | payer OTHER, SELFPAY ==
--- NOTE | ~2022-11-09 | XR_ITS ---
EXAMINATION: XR CHEST CLINICAL INFORMATION: Chest pain COMPARISON: 11/08/2021 TECHNIQUE: Frontal view of the chest was obtained. FINDINGS: No significant abnormality is noted involving the heart, lungs, mediastinum, bony thorax or soft tissues. XR/XR chest 1V IMPRESSION: Unremarkable examination.
--- NOTE | 2022-11-09 00:06 | ECG_ITS ---
Test Reason : CHEST PAIN Blood Pressure : / mmHG Vent. Rate : 111 BPM Atrial Rate : 111 BPM P-R Int : 138 ms QRS Dur : 082 ms QT Int : 294 ms P-R-T Axes : 068 023 -02 degrees QTc Int : 399 ms Sinus tachycardia Nonspecific T wave abnormality Abnormal ECG When compared with ECG of 03-MAR-2022 08:28, Nonspecific T wave abnormality, worse in Inferior leads Nonspecific T wave abnormality now evident in Lateral leads Referred By: Generic ED Physician Electronically Signed By:KERA ROCHE
[2022-11-09 00:17] VITALS: BP 142/84; PULSE 100; RESP 20; TEMP 36.8; O2SAT 100; BMI 36.1
[2022-11-09 00:18] LABS: MANUAL DIFF FLAG NO
[2022-11-09 00:19] LABS: Basophils Percent Auto 0.3 % (0-2); Eosinophils Absolute Auto 0.1 X10*3/uL (0.0-0.4); Eosinophils Percent Auto 0.8 % (0-4); Hemoglobin 11.6 g/dl (12.0-16.0); Imm Gran Abs Auto 0.04 X10*3/uL (0.00-0.03); Imm Gran Pct Auto 0.4 % (0.0-0.4); Lymphocytes Absolute Auto 2.3 X10*3/uL (1.2-4.9); Lymphocytes Percent Auto 22.6 % (20-40); Mean Corpuscular HGB Conc 32.2 g/dl (31.0-35.0); Mean Corpuscular Hemoglobin 25.3 pg (27.0-33.0); Mean Corpuscular Volume 78.6 fL (80.0-98.0); Mean Platelet Volume 8.3 fL (9.4-12.3); Monocytes Absolute Auto 0.8 X10*3/uL (0.1-1.2); Neutrophils Percent Auto 67.9 % (45-73); Platelet Count 319 X10*3/uL (160-400); Red Blood Count 4.58 X10*6/uL (4.20-5.50); Red Cell Distribution Width 13.7 % (11.0-16.0); White Blood Count 10.3 X10*3/uL (4.8-10.8)
[2022-11-09 00:33] LABS: Anion Gap 12 (12-20); Blood Urea Nitrogen 9 mg/dL (9-16); Calcium 8.9 mg/dL (8.4-10.2); Carbon Dioxide 29 mmol/L (22-29); Chloride 105 mmol/L (96-108); Creatinine Clr Calc Pharmacy 91.8; Estimated Glomerular Filt Rate > 60; Glucose Random 109 mg/dL (60-115); Potassium 3.5 mmol/L (3.3-5.1); Sodium 142 mmol/L (135-145)
[2022-11-09 00:54] LABS: Troponin-I High Sensitivity < 3.5 ng/L (<3.5-17.0)
[2022-11-09] MEDS: Ketorolac Tromethamine 60 MG/2 ML VIAL IM (01:03)
--- NOTE | 2022-11-09 01:14 | ED_ITS ---
HPI - Chest Pain General Chief Complaint: Chest Pain Stated Complaint: Chest pain Time Seen by Provider: 11/09/22 00:40 Source: patient Mode of arrival: ambulatory Limitations: no limitations History of Present Illness HPI narrative: Patient with no significant cardiac history under increased stress comes here with left-sided chest pain since yesterday pain is sharp in character get worse with movements and taking a deep breath no cough no fever no shortness of breath pain got worse since 13:00 today Related Data Home Medications Medication Instructions Recorded Confirmed ibuprofen 800 mg tablet 800 mg PO TID 05/06/22 10/05/22 cyclobenzaprine 10 mg tablet 10 mg PO TID PRN muscle spasm 10/05/22 10/05/22 Previous Rx's Medication Instructions Recorded albuterol sulfate 2.5 mg/3 mL 2.5 mg (3 mL) inhalation Q4H PRN 11/24/20 (0.083 %) solution for nebulization shortness of breath or wheezing 30 days #360 mL albuterol sulfate 90 mcg/actuation 2 inh inhalation Q6H PRN shortness 11/24/20 aerosol inhaler of breath or wheezing 30 days #18 grams epinephrine 0.3 mg/0.3 mL 0.3 mg (0.3 mL) IM Q10M PRN 11/24/20 injection, auto-injector (EpiPen anaphylaxis 30 days #2 ea 2-[place]) cholecalciferol (vitamin D3) 25 25 mcg PO DAILY 90 days #90 caps 12/14/20 mcg (1,000 unit) capsule topiramate 25 mg tablet 25 mg PO DAILY #30 tabs 12/14/20 ondansetron HCl 8 mg tablet 8 mg PO BID #30 tabs 03/20/21 Allergy Relief (cetirizine) 10 mg 10 mg PO DAILY #30 caps 08/16/21 capsule (cetirizine) levalbuterol HCl 1.25 mg/3 mL 1.25 mg (3 mL) inhalation Q6H PRN 12/10/21 solution for nebulization for wheezing #360 mL levalbuterol tartrate 45 2 puff inhalation Q6H PRN 12/10/21 mcg/actuation aerosol inhaler shortness of breath or wheezing 30 (Xopenex HFA) days #15 grams roflumilast 500 mcg tablet 500 mcg PO DAILY 30 days #30 tabs 03/11/22 (Daliresp) umeclidinium 62.5 mcg/actuation 1 inh inhalation DAILY 30 days #30 03/12/22 blister powder for inhalation ea (Incruse Ellipta) fluticasone propionate 50 1 spray intranasal BID 30 days #16 04/21/22 mcg/actuation nasal grams spray,suspension (Flonase Allergy Relief) Brace,wrist #2 ea 05/05/22 cetirizine 10 mg tablet 10 mg PO DAILY #30 tabs 05/25/22 methocarbamol 500 mg tablet 500 mg PO BEDTIME PRN pain #30 tabs 05/25/22 ferrous sulfate 325 mg (65 mg 325 mg PO DAILY #60 tabs 07/15/22 iron) tablet (iron) bismuth subsalicylate 262 mg 2 tab PO QID 14 days #112 tabs 09/21/22 chewable tablet metronidazole 250 mg tablet 250 mg PO QID 14 days #56 tabs 09/21/22 omeprazole 20 mg capsule,delayed 20 mg PO BID 14 days #28 caps 09/21/22 release tetracycline 500 mg capsule 500 mg PO QID 14 days #56 caps 09/21/22 budesonide 0.5 mg/2 mL suspension 0.5 mg (2 mL) inhalation BID #360 10/05/22 for nebulization mL ixutfiitww-lmfphivazhrwl-xmrolhop 1 tab PO DAILY PRN pain 30 days 10/05/22 50 mg-325 mg-40 mg tablet #30 tabs duloxetine 30 mg capsule,delayed 30 mg PO DAILY #30 caps 10/05/22 release dupilumab 300 mg/2 mL subcutaneous 300 mg (2 mL) subcut Q2W #4 mL 10/21/22 syringe (Dupixent) montelukast 10 mg tablet 10 mg PO BEDTIME #90 tabs 11/02/22 ibuprofen 600 mg tablet 600 mg PO Q6H PRN fever or pain 11/09/22 #30 tabs Allergies Allergy/AdvReac Type Severity Reaction Status Date / Time gabapentin AdvReac Intermediate joint pain Verified 11/09/22 00:22 sumatriptan [SUMATRIPTAN] AdvReac Intermediate Nausea, Verified 11/09/22 00:22 vomiting, Review of Systems Review of Systems: Yes all other systems are reviewed and are negative PMFSH Past Medical History Medical History Allergic rhinitis Allergy to mold spores AKIRA positive Asthma Chest pain Diabetes mellitus Fibromyalgia GERD (gastroesophageal reflux disease) H. pylori infection Hypovitaminosis D Migraines Obese Surgical History History of section History of tubal ligation Family History Family History Father CVD (cardiovascular disease) Mother Chronic mental illness Breast cancer Schizophrenia Mental health disorder Maternal Grandmother Hypertension Stroke Paternal Grandmother Breast cancer Paternal Aunt Breast cancer Paternal Aunt Cancer of unknown origin Family/Other Chronic mental illness Mental health disorder Social History Social History Household Members: Family Housing: House Alcohol intake: never Patient Tobacco Use Status: Never used Tobacco e-Cigarette/Vaping Use: Never Used Second Hand Smoke Exposure: No Advance Directives: No Advance Directives Information Provided: No service: No Current occupational status: employed Cognitive needs: No Hearing needs: No Vision needs: No Physical Exam Vital Signs: Vital Signs: Last Vital Signs Temp 98.2 F 11/09/22 00:17 Pulse 88 11/09/22 01:33 Resp 18 11/09/22 01:33 BP 112/74 11/09/22 01:33 Pulse Ox 98 11/09/22 01:33 O2 Del Method Room Air 11/09/22 01:33 BMI result Body Mass Index 36.1 Appearance: Alert. Oriented X3. No acute distress. Eyes: PERRLA, No Nystagmus ENT: Pharynx normal. Oral Mucosa moist Neck: Normal inspection. Neck supple. CVS: Normal heart rate and rhythm. Pulses normal. Respiratory: No respiratory distress. Left 2nd costochondral tenderness, Equal air entry bilateral, no wheezing/rales/rhonchi Abdomen: Soft and nontender. Bowel sounds are present, no mass palpable, no CVA tenderness Skin: Skin warm and dry. Normal skin color. Normal skin turgor. Extremities: No lower extremity edema. No calf tenderness Neuro: Oriented X 3. No motor deficit. Medications Administered Discontinued Medications Generic Name Dose Route Start Last Admin Trade Name Freq PRN Reason Stop Dose Admin Ketorolac Tromethamine 60 mg 11/09/22 00:48 11/09/22 01:03 Ketorolac Tromethamine 60 Mg/2 Ml Vial IM 11/09/22 00:49 60 mg ONCE ONE Administration Medical Decision Making Medical Decision Making [facility] Narrative: Patient has atypical chest pain reproducible on palpation for more than 24 hours sharp in character heart score of 0 no acute ischemic changes high sensitive troponin negative discharge patient home on ibuprofen for costochondritis Lab Data [facility] Lab Attestation statement: I reviewed the patient's lab results. 11/09/22 00:13 11/09/22 00:13 Labs: Lab Results 11/09/22 11/09/22 11/09/22 Range/Units 00:13 00:13 00:13 WBC 10.3 (4.8-10.8) X10*3/uL RBC 4.58 (4.20-5.50) X10*6/uL Hgb 11.6 L (12.0-16.0) g/dl Hct 36.0 L (37.0-47.0) % MCV 78.6 L (80.0-98.0) fL MCH 25.3 L (27.0-33.0) pg MCHC 32.2 (31.0-35.0) g/dl RDW 13.7 (11.0-16.0) % Plt Count 319 (160-400) X10*3/uL MPV 8.3 L (9.4-12.3) fL Immature Gran % (Auto) 0.4 (0.0-0.4) % Neut % (Auto) 67.9 (45-73) % Lymph % (Auto) 22.6 (20-40) % [place] % (Auto) 8.0 (2-11) % Eos % (Auto) 0.8 (0-4) % Baso % (Auto) 0.3 (0-2) % Lymph # (Auto) 2.3 (1.2-4.9) X10*3/uL [place] # (Auto) 0.8 (0.1-1.2) X10*3/uL Eos # (Auto) 0.1 (0.0-0.4) X10*3/uL Baso # (Auto) 0.0 (0.0-0.2) X10*3/uL Abs Immat Gran (auto) 0.04 H (0.00-0.03) X10*3/uL Absolute Neuts (auto) 7.0 (2.0-8.3) x10*3/uL Absolute Nucleated RBC 0.000 (0.0-0.012) X10*3/uL Nucleated RBC % (auto) 0.0 (0.0-0.2) /100WBC Sodium 142 (135-145) mmol/L Potassium 3.5 (3.3-5.1) mmol/L Chloride 105 (96-108) mmol/L Carbon Dioxide 29 (22-29) mmol/L Anion Gap 12 (12-20) BUN 9 (9-16) mg/dL Creatinine 0.79 (0.5-1.4) mg/dL Estim Creat Clear Calc 91.8 Estimated GFR > 60 Random Glucose 109 (60-115) mg/dL Calcium 8.9 (8.4-10.2) mg/dL Troponin I High Sens < 3.5 (<3.5-17.0) ng/L Influenza Type A (PCR) (Negative) Influenza Type B (PCR) (Negative) RSV RNA Qual (PCR) (Negative) SARS-CoV-2 RNA (RT-PCR) (Negative) 11/09/22 Range/Units 00:57 WBC (4.8-10.8) X10*3/uL RBC (4.20-5.50) X10*6/uL Hgb (12.0-16.0) g/dl Hct (37.0-47.0) % MCV (80.0-98.0) fL MCH (27.0-33.0) pg MCHC (31.0-35.0) g/dl RDW (11.0-16.0) % Plt Count (160-400) X10*3/uL MPV (9.4-12.3) fL Immature Gran % (Auto) (0.0-0.4) % Neut % (Auto) (45-73) % Lymph % (Auto) (20-40) % [place] % (Auto) (2-11) % Eos % (Auto) (0-4) % Baso % (Auto) (0-2) % Lymph # (Auto) (1.2-4.9) X10*3/uL [place] # (Auto) (0.1-1.2) X10*3/uL Eos # (Auto) (0.0-0.4) X10*3/uL Baso # (Auto) (0.0-0.2) X10*3/uL Abs Immat Gran (auto) (0.00-0.03) X10*3/uL Absolute Neuts (auto) (2.0-8.3) x10*3/uL Absolute Nucleated RBC (0.0-0.012) X10*3/uL Nucleated RBC % (auto) (0.0-0.2) /100WBC Sodium (135-145) mmol/L Potassium (3.3-5.1) mmol/L Chloride (96-108) mmol/L Carbon Dioxide (22-29) mmol/L Anion Gap (12-20) BUN (9-16) mg/dL Creatinine (0.5-1.4) mg/dL Estim Creat Clear Calc Estimated GFR Random Glucose (60-115) mg/dL Calcium (8.4-10.2) mg/dL Troponin I High Sens (<3.5-17.0) ng/L Influenza Type A (PCR) NEGATIVE (Negative) Influenza Type B (PCR) NEGATIVE (Negative) RSV RNA Qual (PCR) NEGATIVE (Negative) SARS-CoV-2 RNA (RT-PCR) NEGATIVE (Negative) Independent Interpretation I performed an independent interpretation of an: EKG Interpretation: Sinus tachycardia heart rate 111 beats per minute normal intervals normal axis no acute ST T wave changes no acute ischemia Discharge Plan Discharge Clinical Impression: Chest pain, Costalchondritis Patient Disposition: Home, Self-Care Instructions: Chest Pain (ED), Costochondritis (ED) Additional Instructions: your chest pain is likely from inflammation of cartilage Ibuprofen for pain Follow with PCP if any concerns Prescriptions: New ibuprofen 600 mg tablet 600 mg PO Q6H PRN (Reason: fever or pain) Qty: 30 0RF No Action albuterol sulfate 2.5 mg /3 mL (0.083 %) solution for nebulization 2.5 mg inhalation Q4H PRN (Reason: shortness of breath or wheezing) 30 Days Qty: 360 11RF albuterol sulfate 90 mcg/actuation HFA aerosol inhaler 2 inh inhalation Q6H PRN (Reason: shortness of breath or wheezing) 30 Days Qty: 18 12RF epinephrine [EpiPen 2-[place]] 0.3 mg/0.3 mL auto-injector 0.3 mg IM Q10M PRN (Reason: anaphylaxis) 30 Days Qty: 2 6RF Rx Instructions: for 2 doses cholecalciferol (vitamin D3) 25 mcg (1,000 unit) capsule 25 mcg PO DAILY 90 Days Qty: 90 3RF topiramate 25 mg tablet 25 mg PO DAILY Qty: 30 6RF ondansetron HCl 8 mg tablet 8 mg PO BID Qty: 30 3RF Allergy Relief (cetirizine) 10 mg capsule 10 mg PO DAILY Qty: 30 8RF fluticasone propionate [Flonase Allergy Relief] 50 mcg/actuation spray,suspension 1 spray intranasal BID 30 Days Qty: 16 3RF Rx Instructions: administer into each nostril methocarbamol 500 mg tablet 500 mg PO BEDTIME PRN (Reason: pain) Qty: 30 5RF cetirizine 10 mg tablet 10 mg PO DAILY Qty: 30 8RF budesonide 0.5 mg/2 mL suspension for nebulization 0.5 mg inhalation BID Qty: 360 3RF jqkbdemufc-naawapprwyzwe-mcpn 50-325-40 mg tablet 1 tab PO DAILY PRN (Reason: pain) 30 Days Qty: 30 0RF Dupixent Syringe 300 mg/2 mL syringe 300 mg subcut Q2W Qty: 4 12RF montelukast 10 mg tablet 10 mg PO BEDTIME Qty: 90 3RF ferrous sulfate [iron] 325 mg (65 mg iron) Tablet 325 mg PO DAILY Qty: 60 2RF Daliresp 500 mcg tablet 500 mcg PO DAILY 30 Days Qty: 30 11RF Incruse Ellipta 62.5 mcg/actuation blister with device 1 inh inhalation DAILY 30 Days Qty: 30 11RF ibuprofen 800 mg tablet 800 mg PO TID levalbuterol HCl 1.25 mg/3 mL solution for nebulization 1.25 mg inhalation Q6H PRN (Reason: for wheezing) Qty: 360 6RF levalbuterol tartrate [Xopenex HFA] 45 mcg/actuation HFA aerosol inhaler 2 puff inhalation Q6H PRN (Reason: shortness of breath or wheezing) 30 Days Qty: 15 11RF (DME) Brace,wrist Misc See Rx Instructions .Route Qty: 2 0RF Rx Instructions: As directed metronidazole 250 mg tablet 250 mg PO QID 14 Days Qty: 56 0RF bismuth subsalicylate 262 mg tablet,chewable 2 tab PO QID 14 Days Qty: 112 0RF tetracycline 500 mg capsule 500 mg PO QID 14 Days Qty: 56 0RF omeprazole 20 mg capsule,delayed release(DR/EC) 20 mg PO BID 14 Days Qty: 28 0RF cyclobenzaprine 10 mg tablet 10 mg PO TID PRN (Reason: muscle spasm) duloxetine 30 mg capsule,delayed release(DR/EC) 30 mg PO DAILY Qty: 30 4RF Interventions: ED Discharge Assessment Last Done: 11/09/22 01:36 Discharge Date/Time: 11/09/22 01:37
[2022-11-09 01:33] VITALS: BP 112/74; PULSE 88; RESP 18; O2SAT 98
[2022-11-09 01:40] LABS: Influenza A PCR NEGATIVE (Negative); Influenza B PCR NEGATIVE (Negative); Resp Syncy Virus RNA Qual PCR NEGATIVE (Negative); SARS COV2 PCR INHOUSE NEGATIVE (Negative)
== END 2022-11-09 01:37 | disposition home or self-care (01) ==
PROVIDERS: Emergency Provider Internal Medicine; PCP Internal Medicine
DX: R07.89 Other chest pain (principal); M94.0 Chondrocostal junction syndrome [Tietze]; Z20.822 Contact with and (suspected) exposure to COVID-19; Z20.828 Contact with and (suspected) exposure to other viral communicable diseases; Z79.899 Other long term (current) drug therapy
CPT/HCPCS: 0241U; 36415; 71045; 80048; 84484; 85025; 93005; 96372; 99284; J1885

== ENCOUNTER → 2022-12-30 15:32 | Outpatient (BNVA) | payer OTHER, SELFPAY | PROVIDERS: PCP Internal Medicine; Visit Provider Hospitalist | DX: J45.50 Severe persistent asthma, uncomplicated (principal); J32.9 Chronic sinusitis, unspecified; J30.9 Allergic rhinitis, unspecified | CPT/HCPCS: 99212 ==

== ENCOUNTER 2023-01-05 08:10 | Outpatient (REF) | payer OTHER, SELFPAY ==
[2023-01-05 08:22] LABS: MANUAL DIFF FLAG NO
[2023-01-05 08:28] LABS: Basophils Percent Auto 0.4 % (0-2); Eosinophils Absolute Auto 0.2 X10*3/uL (0.0-0.4); Eosinophils Percent Auto 2.2 % (0-4); Hematocrit 36.5 % (37.0-47.0); Hemoglobin 11.5 g/dl (12.0-16.0); Imm Gran Abs Auto 0.01 X10*3/uL (0.00-0.03); Imm Gran Pct Auto 0.1 % (0.0-0.4); Lymphocytes Absolute Auto 1.6 X10*3/uL (1.2-4.9); Lymphocytes Percent Auto 24.4 % (20-40); Mean Corpuscular HGB Conc 31.5 g/dl (31.0-35.0); Mean Corpuscular Hemoglobin 25.3 pg (27.0-33.0); Mean Corpuscular Volume 80.2 fL (80.0-98.0); Mean Platelet Volume 8.1 fL (9.4-12.3); Monocytes Absolute Auto 0.5 X10*3/uL (0.1-1.2); Neutrophils Absolute Auto 4.4 x10*3/uL (2.0-8.3); Neutrophils Percent Auto 65.9 % (45-73); Platelet Count 300 X10*3/uL (160-400); Red Blood Count 4.55 X10*6/uL (4.20-5.50); Red Cell Distribution Width 13.7 % (11.0-16.0); White Blood Count 6.7 X10*3/uL (4.8-10.8)
[2023-01-05 09:05] LABS: Alanine Aminotransferase 12 U/L (0-31); Alkaline Phosphatase 73 U/L (39-117); Anion Gap 11 (12-20); Aspartate Amino Transferase 13 U/L (5-31); Bilirubin Total 0.7 mg/dL (0.0-1.0); Blood Urea Nitrogen 11 mg/dL (9-16); Calcium 9.2 mg/dL (8.4-10.2); Carbon Dioxide 26 mmol/L (22-29); Chloride 107 mmol/L (96-108); Cholesterol 158 mg/dL; Estimated Glomerular Filt Rate > 60; Glucose Fasting 103 mg/dL (60-99); HDL Cholesterol 47 mg/dL; Iron 114 mcg/dL (30-160); LDL Cholesterol Calculated 103 mg/dl; Percent Iron Saturation 39 % (15-50); Potassium 4.2 mmol/L (3.3-5.1); Sodium 140 mmol/L (135-145); Total Iron Binding Capacity 293 mcg/dL (228-428); Total Protein 7.1 g/dL (6.5-8.0); Triglycerides 41 mg/dL; Unsaturated Iron Binding 179 ug/dL
[2023-01-05 09:35] LABS: Folate 16.6 ng/mL (> or = 4.0); Vitamin B12 691 pg/mL (200-900); Vitamin D 25-OH Total 51.3 ng/mL (>30)
== END 2023-01-05 08:11 | disposition home or self-care (01) ==
LOC: HO.LAB 08:10
PROVIDERS: PCP Internal Medicine; Visit Provider Internal Medicine
DX: Z00.00 Encounter for general adult medical examination without abnormal findings (principal); E55.9 Vitamin D deficiency, unspecified; D64.9 Anemia, unspecified; E53.8 Deficiency of other specified B group vitamins
CPT/HCPCS: 36415; 80053; 80061; 82306; 82607; 82746; 83540; 85025

== ENCOUNTER 2023-01-31 08:17 | Outpatient (REF) | payer OTHER, SELFPAY ==
--- NOTE | ~2023-01-31 | CT_ITS ---
EXAMINATION: CT ABDOMEN AND PELVIS WITH CONTRAST CLINICAL INFORMATION: Splenic cyst COMPARISON: Previous abdominal ultrasound June [address] of the abdomen and pelvis from 2018 TECHNIQUE: Multidetector volumetric images were obtained from the superior aspect of the liver through the pubic symphysis following administration 85 mL of Omnipaque 350 intravenous contrast. Sagittal and coronal reformatted images were obtained on the technologist's workstation. Oral contrast: Yes This CT examination was performed using dose optimization techniques as appropriate, variously including the following: *Automated exposure control *Adjustment of mA and/or kV according to patient size (this includes techniques or standardized protocols for targeted exams where dose is matched to indication/reason for exam; i.e. extremities or head) *Use of iterative reconstruction technique DLP: 485 mGy-cm FINDINGS: LUNG BASES: The visualized lung bases are unremarkable. LIVER, GALLBLADDER, AND BILIARY TREE: The liver is normal in size, shape, and attenuation. No focal hepatic lesion or biliary ductal dilatation is present. The gallbladder is unremarkable with no evidence of radiopaque gallstones, gallbladder wall thickening, or obvious pericholecystic inflammatory changes. PANCREAS: Unremarkable. SPLEEN: There is a 3.5 cm cyst with wall calcification in the inferior spleen. This is similar in size to 2018 exam. Wall calcification is new. The spleen is otherwise unremarkable. ADRENAL GLANDS: Unremarkable. KIDNEYS AND URETERS: The kidneys are normal in size, shape, and attenuation. No hydronephrosis, hydroureter, or calculi seen. No perinephric stranding. Small bilateral renal cysts. No imaging follow-up recommended. BLADDER: Unremarkable. GASTROINTESTINAL TRACT: Mild diverticulosis of the colon. Question small cyst or fluid-filled diverticulum left lower quadrant anterior to the proximal sigmoid colon axial image 56 series 3. The small and large bowel are unremarkable. The appendix is not identified with certainty. No inflammatory changes in the right lower quadrant. Radiopaque foreign body adjacent to the right colon on 2018 CT no longer seen. ABDOMINAL WALL: No significant hernia is appreciated. LYMPH NODES: Normal. VASCULAR: Unremarkable. Right ovarian/adnexal cysts, largest measuring 2 x 2.7 cm. Uterus and adnexa are otherwise unremarkable. OSSEOUS STRUCTURES: Small sclerotic lesion in the L5 vertebral body. This is stable from 2018 exam and probably represents a bone island. CT/CT abdomen pelvis w IV con IMPRESSION: 3.5 cm cyst with wall calcification in the inferior spleen. This is similar in size to 2018 CT scan. Wall calcification is new. Fleischner guidelines were followed.
[2023-01-31] MEDS: iohexoL 350 MG/ML 100 ML INFUS..BTL IV (09:18)
== END 2023-01-31 08:18 | disposition home or self-care (01) ==
LOC: HO.CT 08:17
PROVIDERS: Visit Provider Internal Medicine
DX: D73.4 Cyst of spleen (principal); N28.1 Cyst of kidney, acquired
CPT/HCPCS: 74177; Q9967

== ENCOUNTER → 2023-02-20 08:42 | Outpatient (BNVA) | payer OTHER, SELFPAY | PROVIDERS: PCP Internal Medicine; Visit Provider Internal Medicine | DX: Z11.0 Encounter for screening for intestinal infectious diseases (principal) | CPT/HCPCS: 99211 ==

== ENCOUNTER 2023-02-20 15:24 | Outpatient (REF) | payer OTHER, SELFPAY ==
[2023-02-26 12:41] LABS: H Pylori Breath Test Positive (Negative)
== END 2023-02-20 15:25 | disposition home or self-care (01) ==
LOC: HO.LNP 15:24
PROVIDERS: Visit Provider Internal Medicine
DX: Z11.0 Encounter for screening for intestinal infectious diseases (principal)
CPT/HCPCS: 83013

== ENCOUNTER 2023-02-28 08:13 | Outpatient (AMB) | payer OTHER, SELFPAY ==
[2023-02-28 08:21] VITALS: BP 112/70; PULSE 90; TEMP 36.6; O2SAT 98; BMI 32.5
--- NOTE | 2023-02-28 08:21 | MHC.OFFVIS ---
Intake Vital Signs 02/28/23 08:21 Height 5 ft 3 in Weight 183 lb 6.793 oz BMI 32.5 BP 112/70 Blood Pressure Location Lt brachial Position Sitting Pulse 90 Temp 97.8 F Temp Source Skin Pulse Oximetry (%) 98 Intake Visit Reasons: fm Intake Note: Pt seen today for FM follow up. C/o right hand pain. Would like refill for flexeril, states she stopped taking methocarbamol because it was not helping her pain. 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 History is helped through the translating services of [place]. In general she is complaining of pain and numbness in the right hand and pain in the left instep. Other muscle aches and pains are about the same. She did not get any benefit taking methocarbamol or cyclobenzaprine. She remains on Cymbalta. The hand symptoms tend to come and go, sometimes at rest at night other times during activity. She feels pain in the fingers and over the volar aspect of the wrist. The numbness is most prominent in the left 3rd through 5th fingers. In the left foot there is pain in the instep, usually with weight-bearing activities. There is similar pains on the other side.. [facility] Medical History Allergic rhinitis Allergy to mold spores NORMA positive Asthma Chest pain Diabetes mellitus Fibromyalgia GERD (gastroesophageal reflux disease) H. pylori infection Hypovitaminosis D Migraines Obese Surgical History History of section History of tubal ligation Family History Father CVD (cardiovascular disease) Mother Chronic mental illness Breast cancer Schizophrenia Mental health disorder Maternal Grandmother Hypertension Stroke Paternal Grandmother Breast cancer Paternal Aunt Breast cancer Paternal Aunt Cancer of unknown origin Family/Other Chronic mental illness Mental health disorder Social History Household Members: Family Housing: House Alcohol intake: never Patient Tobacco Use Status: Never used Tobacco e-Cigarette/Vaping Use: Never Used Second Hand Smoke Exposure: No service: No Current occupational status: employed Current occupational exposures/hazards: No Cognitive needs: No Hearing needs: No Vision needs: No Review of Systems Const Details: Negative for appetite change, weight change, fever, chills, malaise and fatigue Eyes Details: Negative for vision change, dry eyes,headaches and dizziness Skin/Breast Details: Negative for itching, rash, hives, Raynaud's symptoms, sun sensitivity, and skin cancer Neuro Details: Right hand numbness as noted above. Negative for epilepsy, palsy, stroke, changes in speech, and weakness Psych Details: Negative for anxiety, depression and stress Endo Details: Negative for polyuria and polydypsia Ernesto/Lymph Details: Negative for excessive bruising or bleeding. Physical Exam Vital Signs: Last Vital Signs Temp 97.8 F 02/28/23 08:21 Pulse 90 02/28/23 08:21 BP 112/70 02/28/23 08:21 Pulse Ox 98 02/28/23 08:21 BMI result Body Mass Index 32.5 APPEARANCE: Patient in no acute distress EXTREMITIES:? No edema, no calf tenderness, normal peripheral pulses. NEURO:? Oriented and alert x3.? No focal weakness.? Reflexes symmetric.? Gait normal. There seems to be some decreased sensation notable over the 3rd through 5th fingers on the right hand. Negative Phalen's and Tinel signs. SKIN:? No inflammatory or neoplastic lesions.? Normal color and turgor JOINT EXAM: ?? Cervical Spine:.? Mild pain with extremes of motion.? No tenderness. Thoracic Spine:.? No scoliosis.? No tenderness on palpation. Lumbar Spine:.? Alignment normal.? Lumbar pain with flexion at 75 degrees.? No tenderness. Chest Wall:.? No tenderness, swelling, increased warmth or erythema. Hands:? Right:? Pain-free range of motion.? There is some mild tenderness at the 1st through 3 MCP and PIP joints without swelling.? No soft tissue swelling, thenar atrophy, redness or warmth. There is some decreased sensation over the 3rd through 5th fingertips. No nail changes. No objective signs of Raynaud's disease..? Left: Pain-free range of motion with some mild tenderness at the 1st and 2nd MCP and the PIP joints but no soft tissue swelling.? Elsewhere no tenderness, swelling, increased warmth or erythema.? No thenar atrophy or sensory loss. Wrists:.? Right: Mild discomfort with extremes of normal flexion extension with some mild volar tenderness but no redness or swelling. Left: Normal pain-free range of motion with mild pain at 75 degrees flexion or extension.? No swelling, increased warmth or erythema. Elbows:. Normal pain-free range of motion with mild tenderness over the joint spaces and epicondyles.? No areas of swelling, increased warmth or erythema. Shoulders:.?? Full range of motion without pain.? Slight anterior and trapezial tenderness but no abductor weakness, adenopathy, she swelling, increased warmth or erythema. Hips:.? Full range of motion without pain. Hip bursa:.? Mild trochanteric tenderness. Knees:.?? Normal pain-free range of motion with slight patellofemoral crepitus but no effusion, tenderness, swelling, increased warmth or erythema.? Ankles:.? Normal pain-free range of motion with slight valgus at the ankle.? No tenderness, swelling, increased warmth or erythema. Feet:.? Normal pain-free range of motion with bilateral pes planus deformity.? There is mild tenderness on the medial aspect of the insteps.? No swelling, increased warmth or erythema. Tender points:? Mild tenderness to digital palpation at the trapezius, second rib, lateral epicondyle, knees, greater trochanter bilaterally. ?? Results Reviewed Results Reviewed: Laboratory Tests 01/05/23 01/05/23 08:20 08:20 WBC 6.7 Hgb 11.5 L Creatinine 0.71 XRay Report Signed Patient: Saloni Hyman MR#: [id number] : 1985 Acct:[id number] Age/Sex: 36 / F ADM Date: 08/31/[address]: Norma Keane MD Ordering Physician: Norma Dietz MD Date of Service: 08/31/22 Procedure(s): XR hand RT 2V Accession Number(s): [id number] cc: Norma Dietz MD~ EXAMINATION: XR hand RT 2V CLINICAL INFORMATION: Pain? COMPARISON: Hand radiographs 09/27/2018? TECHNIQUE: 3 views of the hand ? FINDINGS: No fracture or dislocation. Joint spaces are maintained. No cortical erosion. Soft tissues are unremarkable. XR/XR hand RT 2V IMPRESSION: ? No acute osseous abnormality. Dictated By: Charo Robles MD Assessment & Plan Assessment & Plan (1) Fibromyalgia: Code(s): M79.7 - Fibromyalgia (2) Foot pain, bilateral: Code(s): M79.671 - Pain in right foot; M79.672 - Pain in left foot (3) Bilateral hand numbness: Code(s): R20.0 - Anesthesia of skin (4) Acquired pes planus: Code(s): M21.40 - Flat foot [pes planus] (acquired), unspecified foot (5) NORMA positive: Comment: 02/2022-1:160, ant dsDNA negative Code(s): R76.8 - Other specified abnormal immunological findings in serum Plan She still has multiple areas of pain and many tender points consistent with fibromyalgia. I do not really see any sign of an active inflammatory arthritis so I think the NORMA is likely a false positive. She is having more symptoms in the right hand with the paresthesias in the 3rd through 5th fingers. This suggest nerve entrapment, perhaps at the ulnar nerve or in the cervical spine region. We will obtain some nerve conduction studies see if we can determine if there is significant nerve entrapment. The foot pain is more on the medial aspect of the feet and she has flat feet so I think it is a structural issue. We will see if Podiatry can evaluate her further for that. I will get back to her with the results of her studies. She can continue with the Cymbalta. She could also use levq-ngl-yxxayrr acetaminophen if needed for pain. At this point I do not think she needs rheumatology follow-up she the joint swelling. Orders: Orders NE electromyogram (EMG) Today R20.0 - Anesthesia of skin Referrals Podiatry Referral M21.40 - Flat foot [pes planus] (acquired), unspecified foot, M79.671 - Pain in right foot, M79.672 - Pain in left foot Coding Level of Care Code Est Pt Level 3 (76789) Diagnoses Fibromyalgia M79.7 Foot pain, bilateral M79.671; M79.672 Bilateral hand numbness R20.0 Acquired pes planus M21.40 NORMA positive R76.8
== END 2023-02-28 09:01 | disposition home or self-care (01) ==
PROVIDERS: PCP Internal Medicine; Visit Provider Internal Medicine Rheumatology
DX: M79.7 Fibromyalgia (principal); M79.671 Pain in right foot; M79.672 Pain in left foot; R20.0 Anesthesia of skin; M21.40 Flat foot [pes planus] (acquired), unspecified foot; R76.8 Other specified abnormal immunological findings in serum
CPT/HCPCS: 99213

== ENCOUNTER → 2023-02-28 08:13 | Outpatient (BNVA) | payer OTHER, SELFPAY | PROVIDERS: Visit Provider Internal Medicine Rheumatology | DX: M79.7 Fibromyalgia (principal); M79.671 Pain in right foot; M79.672 Pain in left foot; M21.40 Flat foot [pes planus] (acquired), unspecified foot; R20.0 Anesthesia of skin; R76.8 Other specified abnormal immunological findings in serum | CPT/HCPCS: 99212 ==

== ENCOUNTER 2023-03-02 13:29 | Outpatient (AMB) | payer OTHER, SELFPAY ==
--- NOTE | 2023-03-02 13:36 | MHC.OFFVIS ---
Intake Vital Signs 03/02/23 13:37 Height 5 ft 3 in Weight 183 lb BMI 32.4 BP 123/75 Blood Pressure Location Rt brachial Position Sitting Pulse 96 Intake Visit Reasons: Cyst of spleen Intake Note: This patient presents for an for a cyst of the spleen. Patient c/o; discomfort. 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 Movement Name: Jazz Information Interpreted: non-clinical & clinical Accompanied by: Self / Same As Patient Allergies gabapentin Adverse Reaction (Intermediate, Verified 03/02/23 13:36) joint pain sumatriptan [SUMATRIPTAN] Adverse Reaction (Intermediate, Verified 03/02/23 13:36) Nausea, vomiting, Medication List - Last Reconciled 03/02/23 by Ayden Jo MD albuterol sulfate 90 mcg/actuation 2 inhalations inhalation Q6H PRN 30 days albuterol sulfate 2.5 mg (3 mL) inhalation Q4H PRN 30 days bismuth subsalicylate 2 tabs PO QID 14 days Brace,wrist As directed budesonide 0.5 mg (2 mL) inhalation BID iiscdvscdl-wfjhxcdpcyygq-dxfy 50-325-40 mg 1 tab PO DAILY PRN 30 days cetirizine 10 mg PO DAILY NS cholecalciferol (vitamin D3) 25 mcg PO DAILY 90 days cholecalciferol (vitamin D3) 50 mcg PO DAILY cyclobenzaprine 10 mg PO TID PRN duloxetine 30 mg PO DAILY dupilumab (Dupixent) 300 mg (2 mL) subcut Q2W epinephrine (EpiPen 2-[place]) 0.3 mg (0.3 mL) IM Q10M PRN 30 days ferrous sulfate (iron) 325 mg PO DAILY fluticasone propionate 50 mcg/actuation (Flonase Allergy Relief) 1 spray intranasal BID 30 days pmgzibyqvch-mpsjvkkkd-heqmctdm 200-62.5-25 mcg (Trelegy Ellipta) 1 inh inhalation DAILY 30 days ibuprofen 600 mg PO Q6H PRN levalbuterol HCl 1.25 mg (3 mL) inhalation Q6H PRN levalbuterol tartrate 45 mcg/actuation 2 puffs inhalation Q6H PRN montelukast 10 mg PO BEDTIME nebulizers As directed omeprazole 20 mg PO BID 14 days ondansetron HCl 8 mg PO BID roflumilast (Daliresp) 500 mcg PO DAILY 30 days tetracycline 500 mg PO Q6H topiramate 25 mg PO DAILY umeclidinium 62.5 mcg/actuation (Incruse Ellipta) 1 inh inhalation DAILY 30 days HPI HPI Comments History of Present Illness Details 37-year-old female patient presenting with complaints of low back pain right greater than left as well as epigastric abdominal pain. Patient has undergone extensive workup including endoscopy and CT abdomen and pelvis. CT of the abdomen and pelvis did revealed a splenic cyst at the lower pole with some surrounding calcification. Review of a previous CT from 2018 revealed a similar-sized splenic cyst without the calcification. She presents today to discuss management of the splenic cyst. [facility] Medical History Allergic rhinitis Allergy to mold spores AKIRA positive Asthma Chest pain Diabetes mellitus Fibromyalgia GERD (gastroesophageal reflux disease) H. pylori infection Hypovitaminosis D Migraines Obese Surgical History History of section History of tubal ligation Hx of retained foreign body fully removed (11/23/17) Family History Father CVD (cardiovascular disease) Mother Chronic mental illness Breast cancer Schizophrenia Mental health disorder Maternal Grandmother Hypertension Stroke Paternal Grandmother Breast cancer Paternal Aunt Breast cancer Paternal Aunt Cancer of unknown origin Family/Other Chronic mental illness Mental health disorder Social History Household Members: Family Housing: House Alcohol intake: never Patient Tobacco Use Status: Never used Tobacco e-Cigarette/Vaping Use: Never Used Second Hand Smoke Exposure: No service: No Current occupational status: employed Current occupational exposures/hazards: No Cognitive needs: No Hearing needs: No Vision needs: No Review of Systems Const All systems reviewed & are unremarkable except as noted in HPI and below GI Reports abdominal pain, Denies constipation, Denies diarrhea, Denies loose stools, Denies nausea and Denies vomiting Musc Reports back pain Physical Exam Vital Signs: Last Vital Signs Pulse 96 03/02/23 13:37 BP 123/75 03/02/23 13:37 BMI result Body Mass Index 32.4 Const General: cooperative and no acute distress Nutritional Appearance: well nourished Orientation/consciousness: patient oriented x3 Limitations: no limitations HEENT Head: Yes normocephalic and Yes atraumatic Ears: hearing grossly normal bilaterally Resp Effort & Inspection: normal respiratory effort, no audible wheezes, no cough and no respiratory distress Cardio Jugular venous distension: no JVD GI Inspection: Yes normal to inspection Palpation (GI): Soft to palpation, Tenderness to palpation present (GI) in the epigastrum, no hepatomegaly, no splenomegaly and no masses Percussion: Yes normal to percussion Auscultation: normal bowel sounds Rectal Exam - Female: deferred Skin Other: Warm, dry, no rash Neuro General: patient oriented x3 Extrem General: Yes no clubbing, cyanosis or edema Assessment & Plan Assessment & Plan (1) Cyst of spleen: Code(s): D73.4 - Cyst of spleen Plan 37-year-old female patient presenting with complaints of back and epigastric pain found on CT to have a splenic cyst. Patient is concerned the splenic cyst is causing her symptoms. Review of previous CT scan performed in 2018 reveals a similar sized splenic cyst without significant change. On examination the patient has no tenderness in the left subcostal region but mainly in the epigastric region. Patient's symptoms are unlikely to be related to the splenic cyst which is been very stable for many years. We discussed the risks and benefits of drainage of the splenic cyst. Cyst should be drained if it is enlarging or causing significant symptoms, neither of which are true. I therefore recommended observation. The patient was very happy with this and is welcome to call should her symptoms change. Coding Level of Care Code New Pt Level 4 (97701) Diagnoses Cyst of spleen D73.4
[2023-03-02 13:37] VITALS: BP 123/75; PULSE 96; BMI 32.4
== END 2023-03-02 14:05 | disposition home or self-care (01) ==
PROVIDERS: PCP Internal Medicine; Referring Provider Internal Medicine; Visit Provider Surgery
DX: D73.4 Cyst of spleen (principal)
CPT/HCPCS: 99203

== ENCOUNTER → 2023-03-02 13:29 | Outpatient (BNVA) | payer OTHER, SELFPAY | PROVIDERS: PCP Internal Medicine; Referring Provider Internal Medicine; Visit Provider Surgery ==

== ENCOUNTER 2023-03-14 07:50 | Outpatient (REF) | payer OTHER, SELFPAY | END 2023-03-14 07:51 | disposition home or self-care (01) | LOC: HO.MAMMO 07:50 | PROVIDERS: PCP Internal Medicine; Visit Provider Internal Medicine | DX: Z13.89 Encounter for screening for other disorder (principal) ==

== ENCOUNTER → 2023-03-23 15:00 | Outpatient (BNV) | payer OTHER, SELFPAY | PROVIDERS: PCP Internal Medicine; Visit Provider Radiology Diagnostic Radiology | DX: N60.11 Diffuse cystic mastopathy of right breast (principal) | CPT/HCPCS: 76642; 77065 ==

== ENCOUNTER 2023-03-23 15:07 | Outpatient (REF) | payer OTHER, SELFPAY ==
--- NOTE | ~2023-03-23 | US_ITS ---
EXAMINATION: MM DIAGNOSTIC DIGITAL BREAST TOMOSYNTHESIS, RIGHT US BREAST LIMITED, RIGHT MAMMOGRAPHY: CLINICAL INFORMATION: Right breast six-month follow-up for asymmetric density lateral aspect mid to posterior depth. COMPARISON: Mammography: 09/19/2022, 09/16/2022, and dating back to 03/08/2022. Right breast ultrasound dated 09/19/2022. TECHNIQUE: Digital breast tomosynthesis is performed in both the craniocaudal and mediolateral oblique views along with computer-aided detection (CAD). Synthesized 2D images are generated from the tomosynthesis. FINDINGS: The breasts are heterogeneously dense, which may obscure small masses (ACR BI-RADS breast composition Category c). There is a stable asymmetric density, linear in appearance, likely representing a region of fibrocystic change with associated duct ectasia within the right mid lateral breast, mid to posterior depth. This is completely unchanged from the prior examinations in morphology and appearance. This will be evaluated by ultrasound. There are no additional suspicious abnormalities in the right breast or developing suspicious calcifications. Stable heterogeneously dense parenchymal pattern. Results were provided to the patient at time of visit by the technologist. ULTRASOUND: CLINICAL INFORMATION: Evaluate linear asymmetric density right mid lateral breast as described above. COMPARISON: 09/16/2022. TECHNIQUE: Targeted sonographic evaluation of the right breast lateral aspect was performed using a high frequency linear transducer. Selected archived documentation. FINDINGS: RIGHT BREAST: Within the 8-9 o'clock axis of the right breast, 6 to 9 cm from the nipple, there are numerous small simple cysts with associated thickened prominent Rudy's ligaments, consistent with a region of prominent fibrocystic change. There are a few associated mildly dilated ducts. This is benign. There are no suspicious findings and there are no findings suggestive of malignancy. The findings appear to correlate well with the mammographic focus of concern. US/US breast RT limited mamm only IMPRESSION: Asymmetric density right breast posterolateral aspect is client services representative of a prominent region of fibrocystic change with associated mild focal duct ectasia. No intraductal lesions seen. Findings are benign. No findings suspicious for malignancy. Recommend the patient resume routine annual screening mammography. OVERALL ASSESSMENT: Mammography: BI-RADS 2 - Benign Findings Ultrasound: BI-RADS 2 - Benign Findings RECOMMENDATION: 1 year F/U This patient's information was entered into a reminder system with a target due date for their next mammogram.
== END 2023-03-23 15:08 | disposition home or self-care (01) ==
LOC: HO.MAMMO 15:07
PROVIDERS: PCP Internal Medicine; Visit Provider Internal Medicine
DX: R92.2 Inconclusive mammogram (principal); N64.89 Other specified disorders of breast
CPT/HCPCS: 76642; 77061; 77065

== ENCOUNTER 2023-04-07 12:39 | Outpatient (AMB) | payer OTHER, SELFPAY ==
--- NOTE | 2023-04-07 12:42 | MHC.OFFVIS ---
Intake Vital Signs 04/07/23 12:51 Height 5 ft 3 in Weight 178 lb 9.191 oz BMI 31.6 BP 125/83 Blood Pressure Location Lt brachial Position Sitting Pulse 88 Intake Visit Reasons: 8 week follow up Intake Note: Saloni presents in the office as a 8 week follow up. CC: She states that she is in need of Omeprazole refills. She states that she is worried about the h pylori being pos again. 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 Previous visit 04/2022: Patient states that for the past 2 years, she has had intermittent sensation of balloon or a lump in her epigastrium. This is associated with decreased appetite and early satiety. Symptoms are intermittent and she is unable to identify what triggers them or results them. No prandial association that she can elicit. No radiation of pain. This is also associated with watery diarrhea Pepin stool scale 5-6. Has 2 bowel movements today. Does not have diarrhea when she does not eat. No nocturnal symptoms. No blood or mucus in the stools. Occasional urgency. No tenesmus. No change in abd pain with stooling. Does not recall any travel, medication changes, sick contacts around the time of symptom onset. She also denies any illness preceding the symptoms. Takes ibuprofen occasionally. She does not report any family history of colorectal cancer or IBD. Has a gallbladder in Situ. Workup at that time indicated positive H pylori antigen, which per report was treated twice, but remains positive as of this year. EGD/colonoscopy 09/08/22 Normal esophagus (biopsy) Normal stomach (mapping biopsy) Normal duodenum (biopsy) Normal colon and terminal mucosa (biopsy) Internal hemorrhoids Path: A. Duodenum, biopsy: Duodenal mucosa within normal limits; negative for celiac disease. B. Stomach, antral lesser curvature, biopsy: - Antral-type mucosa with moderate chronic inactive inflammation; no intestinal metaplasia identified. - Positive for H pylori. C. Stomach, antral greater curvature, biopsy: - Antral-type mucosa with moderate chronic inactive inflammation; no intestinal metaplasia identified. - Positive for H pylori. D. Stomach, incisura, biopsy: - Antral-type mucosa with moderate chronic inactive inflammation; no intestinal metaplasia identified. - Positive for H pylori. E. Stomach, body lesser curvature, biopsy: - Oxyntic mucosa with moderate chronic inactive inflammation; no intestinal metaplasia identified. - Positive for H pylori. F. Stomach, body greater curvature, biopsy: - Oxyntic mucosa with moderate chronic inactive inflammation; no intestinal metaplasia identified. - Positive for H pylori. G. Esophagus, lower, Squamous mucosa within normal limits; no inflammation seen. biopsy: H. Esophagus, mid, biopsy: Squamous epithelium within normal limits; no inflammation seen. I. Colon, right, biopsy: Colonic mucosa within normal limits; negative for microscopic colitis. J. Colon, left, biopsy: Colonic mucosa within normal limits; negative for microscopic colitis. 09/21/22 Main complaint remains vague abd discomfort with heartburn. No N/V/D. Endoscopy findings and path reviewed. Given anemia, will elect to treat. Pt does not recall the exact treatment given before but states that both the times, was given one antibiotic that she had to take twice a day. 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 Has been seen by gen surg for splenic cyst - plan for observation. H pylori NICKI still POSITIVE i.e not successfully eradicated. Pt reports was not able to take the meds QID due to abd discomfort and most of the days took the meds 3 times a day. [facility] Medical History Allergic rhinitis Allergy to mold spores AKIRA positive Asthma Chest pain Diabetes mellitus Fibromyalgia GERD (gastroesophageal reflux disease) H. pylori infection Hypovitaminosis D Migraines Obese Surgical History History of section History of tubal ligation Hx of retained foreign body fully removed (11/23/17) Family History Father CVD (cardiovascular disease) Mother Chronic mental illness Breast cancer Schizophrenia Mental health disorder Maternal Grandmother Hypertension Stroke Paternal Grandmother Breast cancer Paternal Aunt Breast cancer Paternal Aunt Cancer of unknown origin Family/Other Chronic mental illness Mental health disorder Social History Household Members: Family Housing: House Alcohol intake: never Patient Tobacco Use Status: Never used Tobacco e-Cigarette/Vaping Use: Never Used Second Hand Smoke Exposure: No service: No Current occupational status: employed Current occupational exposures/hazards: No Cognitive needs: No Hearing needs: No Vision needs: No Review of Systems Const All systems reviewed & are unremarkable except as noted in HPI and below Physical Exam Vital Signs: BMI result Body Mass Index 31.6 Gen appear: NAD HEENT: nonicteric, no cervical lymphadenopathy Chest: CTA CVS: Regular S1/S2 Abd: soft, nontender, nondistended, bowel sounds + Ext: no peripheral edema Neuro: A/Ox3, noted to move all extremities spontaneously Psych: interacting appropriately Assessment & Plan Assessment & Plan (1) Renal cyst: Code(s): N28.1 - Cyst of kidney, acquired (2) H. pylori infection: Code(s): A04.8 - Other specified bacterial intestinal infections (3) Microcytic anemia: Code(s): D50.9 - Iron deficiency anemia, unspecified Plan 1. Renal cyst: Will cont to monitor - given stability of size over last 2 scans, will space out imaging to 2 years. Reminder set. 2. H pylori infection: Not eradicated likely due to nonadherence to treatment. Pt requests a repeat Rx for quad therapy as currently not working and believes she will be able to follow the QID schedule now. Quad therapy prescribed as below. Instructions reviewed. Pt has a written handout from last time. Breath test to be done in 5-6 weeks OFF ppi and bismuth therapy x 2 weeks. Follow up in office in 8 weeks. Medications: New metronidazole 250 mg PO QID 14 days 56 tabs 0RF Changed From tetracycline 500 mg PO Q6H To tetracycline 500 mg PO Q6H 14 days 56 caps 0RF From bismuth subsalicylate 2 tabs PO QID 14 days 112 tabs 0RF To bismuth subsalicylate 1 tab PO QID 14 days 56 tabs 0RF Refilled omeprazole 20 mg PO BID 14 days 28 caps 0RF Coding Level of Care Code Est Pt Level 4 (87244) Diagnoses Renal cyst N28.1 H. pylori infection A04.8 Microcytic anemia D50.9
[2023-04-07 12:51] VITALS: BP 125/83; PULSE 88; BMI 31.6
== END 2023-04-07 13:09 | disposition home or self-care (01) ==
PROVIDERS: PCP Internal Medicine; Visit Provider Internal Medicine
DX: N28.1 Cyst of kidney, acquired (principal); A04.8 Other specified bacterial intestinal infections; D50.9 Iron deficiency anemia, unspecified
CPT/HCPCS: 99214

== ENCOUNTER → 2023-04-07 12:39 | Outpatient (BNVA) | payer OTHER, SELFPAY | PROVIDERS: PCP Internal Medicine; Visit Provider Internal Medicine | DX: A04.8 Other specified bacterial intestinal infections (principal); N28.1 Cyst of kidney, acquired; D50.9 Iron deficiency anemia, unspecified; Z79.899 Other long term (current) drug therapy | CPT/HCPCS: 99212 ==

== ENCOUNTER 2023-06-30 15:36 | Outpatient (AMB) | payer OTHER, SELFPAY ==
[2023-06-30 15:40] VITALS: PULSE 89; O2SAT 100; BMI 32.8
--- NOTE | 2023-06-30 15:40 | MHC.OFFVIS ---
Intake Vital Signs 06/30/23 15:40 Height 5 ft 3 in Weight 185 lb BMI 32.8 Pulse 89 Pulse Source Pulse Oximeter Pulse Oximetry (%) 100 Oxygen Delivery Method Room Air Intake Visit Reasons: Asthma Account Liaison Hospice Required: No Allergies gabapentin Adverse Reaction (Intermediate, Verified 06/30/23 15:41) joint pain sumatriptan [SUMATRIPTAN] Adverse Reaction (Intermediate, Verified 06/30/23 15:41) Nausea, vomiting, HPI HPI Comments History of Present Illness Details The patient is a 37-year-old woman with a known history of asthma. The patient has had multiple evaluations in the ER because of asthma exacerbations. She feels like asthma is not controlled. She feels like she needs to use her rescue inhaler on a daily basis. She only gets partial resolution when she uses inhalers. On further questioning she has not tried many maintenance inhalers at this time. In addition to that she has not had any allergy testing or pulmonary function study testing. Therefore, the patient will start maintenance therapy in addition to undergoing blood work and pulmonary function studies in the near future. 07/29/2022 the patient is here for a pulmonary follow-up visit. Overall the patient has been doing well. She did make it back from a trip to the [facility]. She did well did not have any significant respiratory issues there. However now that she is back to the [place] she again is having significant chest tightness and wheezing moderate severity. In addition to coughing intermittently. Typically non congested. The patient is taking her Dupixent injections which are only partially helpful. The patient will be referred to an fabrication welder at this time to further evaluate her biologic therapy and also to consider immunotherapy. In the meantime she continues use her nebulized therapy with good Adherence. Patient does not have any recent imaging studies to review. 12/30/2022 the patient is here for pulmonary follow-up visit. The patient has been having her ups and Downs. Significant allergy symptoms during the spring. The Dupixent has been only partially helpful. We had referred her to allergy but she was given an appointment in May. Will go ahead and placed a referral to the actual doctor that we requested in the 1st place that had left the practice and hopefully she can be seen sooner. So therefore will not any change any of her immunotherapy as she is awaiting that visit with Allergy and immunology. In the meantime the patient did respond very well to Trelegy. She is not responding to Incruse nor budesonide. Therefore will go ahead and resend the Trelegy to the pharmacy as this was the 1 medication that helped her feel better. Hopefully we can get her on that at this time. In the meantime she is going to continue with allergy therapies and hopefully we can get her to Allergy soon. 06/30/2023 the patient is here for a pulmonary follow-up visit. The patient overall has been doing well. She continues on Dupixent injection. Although, she does not have any maintenance therapy. The patient was supposed to be on Trelegy but was not covered. Therefore she is been using her rescue inhaler on a daily basis. Will go ahead and send her a prescription for Symbicort that she can use twice a day. Hopefully with the Symbicort she will need to use her rescue inhaler. She will continue to use it Dupixent every 2 weeks because has been affecting beneficial. She also was found to have H pylori and she was placed on multiple medications for that making it very difficult with adverse effects. She is having significant reflux disease. She continues to try reflux diet. She is been on omeprazole 20 mg. will go ahead and increase the omeprazole to 40 mg to maximize the effect. She also follow-up with GI doctor. [facility] Medical History Allergic rhinitis Allergy to mold spores AKIRA positive Asthma Chest pain Diabetes mellitus Fibromyalgia GERD (gastroesophageal reflux disease) H. pylori infection Hypovitaminosis D Migraines Obese Surgical History History of section History of tubal ligation Hx of retained foreign body fully removed (11/23/17) Family History Father CVD (cardiovascular disease) Mother Chronic mental illness Breast cancer Schizophrenia Mental health disorder Maternal Grandmother Hypertension Stroke Paternal Grandmother Breast cancer Paternal Aunt Breast cancer Paternal Aunt Cancer of unknown origin Family/Other Chronic mental illness Mental health disorder Social History Household Members: Family Housing: House Alcohol intake: never Patient Tobacco Use Status: Never used Tobacco e-Cigarette/Vaping Use: Never Used Second Hand Smoke Exposure: No service: No Current occupational status: employed Current occupational exposures/hazards: No Cognitive needs: No Hearing needs: No Vision needs: No Review of Systems Const Reports fatigue and Denies fever(s) Eyes Reports no additional complaints, Denies change in vision and Denies other visual disturbances Card Reports chest pain with activity, Denies edema, Denies irregular heart rhythm, Denies claudication, Denies dyspnea, Reports dyspnea on exertion, Denies orthopnea, Denies paroxysmal nocturnal dyspnea and Denies slow heart rate Resp Denies chest congestion, Reports cough, Denies dyspnea, Reports dyspnea on exertion and Reports wheezing GI Reports abdominal pain, Denies change in bowel habits, Denies excessive flatus, Reports dyspepsia, Reports heartburn, Denies nausea and Denies vomiting Denies urinary incontinence, Denies urinary hesitancy and Denies urinary urgency Endo Reports fatigue Aller/Immun Reports wheezing Physical Exam Vital Signs: Last Vital Signs Pulse 89 06/30/23 15:40 Pulse Ox 100 06/30/23 15:40 Oxygen Delivery Method Room Air 06/30/23 15:40 BMI result Body Mass Index 32.8 Const General: alert Neck Neck: Yes normal visual inspection, Yes full ROM and Yes no lymphadenopathy Chest Chest palpation & inspection: normal inspection of the chest Resp Effort & Inspection: normal respiratory effort Auscultation: no wheezes and diminished lung sounds Cardio Rate: regular rate Rhythm: regular rhythm Heart sounds: S1 normal heart sound present and S2 normal heart sound present GI Palpation (GI): Soft to palpation and nontender Auscultation: normal bowel sounds General: Yes no CVA tenderness Back/Spine/Pelvis Back: no CVA tenderness Skin General skin exam: rashes and/or lesions noted Assessment & Plan Assessment & Plan (1) Asthma: Code(s): J45.909 - Unspecified asthma, uncomplicated Qualifiers: Asthma complication type: uncomplicated Asthma persistence: persistent Asthma severity: severe Qualified Code(s): J45.50 - Severe persistent asthma, uncomplicated (2) Chronic allergic rhinitis: Code(s): J30.9 - Allergic rhinitis, unspecified (3) Asthma: Code(s): J45.909 - Unspecified asthma, uncomplicated Qualifiers: Asthma complication type: uncomplicated Asthma persistence: persistent Asthma severity: moderate Qualified Code(s): J45.40 - Moderate persistent asthma, uncomplicated (4) GERD (gastroesophageal reflux disease): Code(s): K21.9 - Gastro-esophageal reflux disease without esophagitis Qualifiers: Esophagitis presence: esophagitis presence not specified Qualified Code(s): K21.9 - Gastro-esophageal reflux disease without esophagitis Plan start Symbicort Xopenex as needed due to increase tremors and palpitations continue Dupixent for now continue Daliresp 500mcg reflux diet start Omeprazole 40mg Allergy referral pending F/U 6 months Medications: New omeprazole 40 mg PO DAILY 30 days 30 caps 6RF budesonide-formoterol 160-4.5 mcg/actuation (Symbicort) 2 puffs inhalation BID 30 days 10.2 grams 11RF J44.89 - Other specified chronic obstructive pulmonary disease Discontinued omeprazole Discontinued Reason: Doctor's Order 20 mg PO BID 14 days 28 caps 0RF Coding Level of Care Code Est Pt Level 4 (89559) Diagnoses Severe persistent asthma without complication J45.50 Asthma complication type: uncomplicated Asthma persistence: persistent Asthma severity: severe Chronic allergic rhinitis J30.9 Gastroesophageal reflux disease, unspecified whether esophagitis present K21.9 Esophagitis presence: esophagitis presence not specified Time Spent (min) 17
== END 2023-07-03 09:49 | disposition home or self-care (01) ==
PROVIDERS: PCP Internal Medicine; Visit Provider Hospitalist
DX: J45.50 Severe persistent asthma, uncomplicated (principal); J30.9 Allergic rhinitis, unspecified; K21.9 Gastro-esophageal reflux disease without esophagitis; J45.40 Moderate persistent asthma, uncomplicated
CPT/HCPCS: 99214

== ENCOUNTER → 2023-06-30 15:36 | Outpatient (BNVA) | payer OTHER, SELFPAY | PROVIDERS: PCP Internal Medicine; Visit Provider Hospitalist | DX: J45.50 Severe persistent asthma, uncomplicated (principal); J30.9 Allergic rhinitis, unspecified; K21.9 Gastro-esophageal reflux disease without esophagitis | CPT/HCPCS: 99212 ==

== ENCOUNTER 2023-07-12 07:30 | Outpatient (AMB) | payer OTHER, SELFPAY ==
[2023-07-12 07:35] VITALS: BP 112/80; BMI 32.8
--- NOTE | 2023-07-12 07:35 | A.OFFPC_ITS ---
Vital Signs 07/12/23 07:35 Height 5 ft 3 in Weight 185 lb BMI 32.8 BP 112/80 Blood Pressure Location Lt brachial Position Sitting Intake Visit Reasons: asthma, migraines Intake Note: Patient here for a follow up asthma, migraines Guide Foreign Tour Required: No Accompanied by: Self / Same As Patient Allergies duloxetine Adverse Reaction (Severe, Verified 07/12/23 07:54) Headache gabapentin Adverse Reaction (Intermediate, Verified 07/12/23 07:46) joint pain sumatriptan [SUMATRIPTAN] Adverse Reaction (Intermediate, Verified 07/12/23 07:46) Nausea, vomiting, Medication List - Last Reconciled 07/12/23 by Norma Keane MD albuterol sulfate 90 mcg/actuation 2 inhalations inhalation Q6H PRN 30 days albuterol sulfate 2.5 mg (3 mL) inhalation Q4H PRN 30 days bismuth subsalicylate 1 tab PO QID 14 days Brace,wrist As directed budesonide 0.5 mg (2 mL) inhalation BID budesonide-formoterol 160-4.5 mcg/actuation (Symbicort) 2 puffs inhalation BID 30 days kstguxndto-fqizhxifeoqpq-hsck 50-325-40 mg 1 tab PO DAILY PRN 30 days cetirizine 10 mg PO DAILY NS cholecalciferol (vitamin D3) 50 mcg PO DAILY cyclobenzaprine 10 mg PO TID PRN dupilumab 300 mg (2 mL) subcut Q2W epinephrine (EpiPen 2-[place]) 0.3 mg (0.3 mL) IM Q10M PRN 30 days ferrous sulfate (iron) 325 mg PO DAILY fluticasone propionate 50 mcg/actuation (Flonase Allergy Relief) 1 spray intranasal BID 30 days mnpsgnukifx-ocotwfnli-oszwxjfl 200-62.5-25 mcg (Trelegy Ellipta) 1 inh inhalation DAILY 30 days ibuprofen 800 mg PO TID levalbuterol HCl 1.25 mg (3 mL) inhalation Q6H PRN levalbuterol tartrate 45 mcg/actuation 2 puffs inhalation Q6H PRN methocarbamol 500 mg PO DAILY montelukast 10 mg PO BEDTIME nebulizers As directed omeprazole 40 mg PO DAILY 30 days ondansetron HCl 8 mg PO BID roflumilast (Daliresp) 500 mcg PO DAILY 30 days topiramate 25 mg PO DAILY umeclidinium 62.5 mcg/actuation (Incruse Ellipta) 1 inh inhalation DAILY 30 days Tobacco use date assessed: 12/12/22 Dental Screening Dental Screen Date: 07/12/23 Did you have a dental visit in the last 12 months?: Yes Did you have a dental problem in the last 6 months where you did not have access to dental care?: No Was dental information given to patient?: Patient has dentist HPI HPI Comments History of Present Illness Details This is a 37-year-old female with asthma, migraines, GERD and iron- deficiency anemia that comes today for follow-up on her conditions. Asthma is stable with Symbicort and use rescue inhaler few times a month. This is follow by pulmonology. Migraines happen few times a month and I will restart her on Topamax for migraine prophylaxis. Hemoglobin was 11.5 the last time and is compliant with ferrous sulfate. No chest pain or shortness of breath. Has fibromyalgia and started using duloxetine prescribed by Rheumatology but said that had to stop due to severe headache. [facility] Medical History NORMA positive H. pylori infection Asthma Allergic rhinitis Diabetes mellitus Fibromyalgia Obese GERD (gastroesophageal reflux disease) Allergy to mold spores Chest pain Hypovitaminosis D Migraines Surgical History Hx of retained foreign body fully removed (11/23/17) History of tubal ligation History of section Family History Father CVD (cardiovascular disease) Mother Chronic mental illness Breast cancer Schizophrenia Mental health disorder Maternal Grandmother Hypertension Stroke Paternal Grandmother Breast cancer Paternal Aunt Breast cancer Paternal Aunt Cancer of unknown origin Family/Other Chronic mental illness Mental health disorder Social History Household Members: Family Housing: House Alcohol intake: never Patient Tobacco Use Status: Never used Tobacco e-Cigarette/Vaping Use: Never Used Second Hand Smoke Exposure: No service: No Current occupational status: employed Current occupational exposures/hazards: No Cognitive needs: No Hearing needs: No Vision needs: No Questionnaire Thrive Questionnaire Date Thrive assessed: 12/12/22 QUYNH-7 AMB Questionnaire QUYNH-7 Date QUYNH - 7 assessed: 12/12/22 Source: Developed by Drs. Huber Zamora, Opal Wyatt, Demetrius Figueroa and colleagues, with an educational yvrose from [employer]. Review of Systems Const All systems reviewed & are unremarkable except as noted in HPI and below Eyes Reports no additional complaints, Denies change in vision and Denies other visual disturbances Card Denies chest pain at rest, Denies chest pain with activity, Denies edema, Denies irregular heart rhythm, Denies claudication, Denies dyspnea, Denies dyspnea on exertion, Denies orthopnea, Denies paroxysmal nocturnal dyspnea and Denies slow heart rate Resp Denies cough, Denies dyspnea and Denies dyspnea on exertion GI Denies abdominal pain, Denies change in bowel habits, Denies excessive flatus, Denies nausea and Denies vomiting Denies urinary incontinence, Denies urinary hesitancy and Denies urinary urgency Musc Denies abnormal gait, Denies atrophy, Denies deformity and Denies limited range of motion Skin/Breast Denies bleeding lesions, Denies changing lesions and Denies rash Neuro Denies abnormal gait and Denies lack of coordination Physical exam (Primary Care) Vital Signs: Last Vital Signs BP 112/80 07/12/23 07:35 BMI result Body Mass Index 32.8 Tobacco/Smoking Status: Tobacco use Status Tobacco use date assessed 12/12/22 07/12/23 07:35 Patient Tobacco Use Status Never used Tobacco 07/12/23 07:35 e-Cigarette/Vaping Use Never Used 07/12/23 07:35 Thrive Assessment: Date of Thrive Assessment Date Thrive assessed 12/12/22 07/12/23 07:35 Eyes General: appearance normal, both eyes and all related structures Eyelids: Yes eyelids normal Conjunctivae: conjunctivae normal Neck Neck: Yes normal visual inspection and Yes supple Resp Effort & Inspection: normal respiratory effort Auscultation: clear to auscultation bilaterally Cardio Jugular venous distension: no JVD Rate: regular rate Rhythm: regular rhythm Heart sounds: S1 normal heart sound present and S2 normal heart sound present Extrem General: Yes full ROM Office Procedures Flu Questionnaire Does the patient have a severe egg allergy?: No Does the patient have severe life threatening allergies?: No Does the patient have a fever or illness today?: No Has the patient ever had Guillain-Yuma Syndrome?: No Has the patient ever had any past reaction to a flu shot?: No Immunizations flu vacc [id number] 6mos up(PF) 60 mcg(15 mcgx4)/0.5 mL IM syringe Performing Provider: Norma Keane MD Performing Location: [facility] Administered by: EPHRAIM Merritt on 07/12/23 07:57 Dose Route Admin Location Dispensed Lot Number Expiration Date NDC [employer] Education [employer] 0.5 mL IM Left Deltoid 0.5 mL [id number] 02/11/24 10580-365-66 [employer] VIS Given Date VIS Provided VIS Publication Date 07/12/23 Single Vaccine 21 Eligibility Eligibility Date Funding Source Not [facility] [place] Eligible 07/12/23 Private Assessment and Plan Assessment & Plan (1) Migraines: Code(s): G43.909 - Migraine, unspecified, not intractable, without status migrainosus Qualifiers: Intractability: not intractable Migraine type: without aura Status migrainosus presence: without status migrainosus Qualified Code(s): G43.009 - Migraine without aura, not intractable, without status migrainosus Plan: Restart Topamax. Continue Fioricet as needed for acute migraine. (2) GERD (gastroesophageal reflux disease): Code(s): K21.9 - Gastro-esophageal reflux disease without esophagitis Qualifiers: Esophagitis presence: esophagitis presence not specified Qualified Code(s): K21.9 - Gastro-esophageal reflux disease without esophagitis Plan: Continue PPIs. (3) Asthma: Code(s): J45.909 - Unspecified asthma, uncomplicated Qualifiers: Asthma severity: moderate Asthma persistence: persistent Asthma complication type: uncomplicated Qualified Code(s): J45.40 - Moderate persistent asthma, uncomplicated Plan: Use rescue inhaler as needed. Continue Symbicort. Follow-up with pulmonology. (4) Iron deficiency anemia due to chronic blood loss: Code(s): D50.0 - Iron deficiency anemia secondary to blood loss (chronic) Plan: Continue ferrous sulfate. Orders: Orders Influenza [id number] Immunization Today Z23 - Encounter for immunization Medications: Refilled topiramate 25 mg PO DAILY 30 tabs 6RF ywiwjfucuv-ejpfmxvmubjrk-vqtb 50-325-40 mg 1 tab PO DAILY 30 days PRN 30 tabs 0RF pain Discontinued umeclidinium 62.5 mcg/actuation (Incruse Ellipta) Discontinued Reason: Patient Refused 1 inh inhalation DAILY 30 days 30 ea 11RF J45.909 - Unspecified asthma, uncomplicated Coding Level of Care Code Est Pt Level 4 (17191) Diagnoses Migraines G43.009 Intractability: not intractable Migraine type: without aura Status migrainosus presence: without status migrainosus Gastroesophageal reflux disease, unspecified whether esophagitis present K21.9 Esophagitis presence: esophagitis presence not specified Moderate persistent asthma without complication J45.40 Asthma severity: moderate Asthma persistence: persistent Asthma complication type: uncomplicated Iron deficiency anemia due to chronic blood loss D50.0 Time Spent (min) 23
== END 2023-07-12 07:59 | disposition home or self-care (01) ==
PROVIDERS: PCP Internal Medicine; Visit Provider Internal Medicine
DX: G43.009 Migraine without aura, not intractable, without status migrainosus (principal); K21.9 Gastro-esophageal reflux disease without esophagitis; J45.40 Moderate persistent asthma, uncomplicated; Z23 Encounter for immunization; D50.0 Iron deficiency anemia secondary to blood loss (chronic)
CPT/HCPCS: 90471; 90686; 99214

== ENCOUNTER 2023-10-03 15:08 | Outpatient (REF) | payer OTHER, SELFPAY | END 2023-10-03 15:09 | disposition home or self-care (01) | LOC: HO.MAMMO 15:08 | PROVIDERS: PCP Internal Medicine; Visit Provider Internal Medicine | DX: Z12.31 Encounter for screening mammogram for malignant neoplasm of breast (principal) | CPT/HCPCS: 77063; 77067 ==

== ENCOUNTER → 2023-10-03 15:15 | Outpatient (BNV) | payer OTHER, SELFPAY | PROVIDERS: PCP Internal Medicine; Visit Provider Radiology Diagnostic Radiology | DX: Z12.31 Encounter for screening mammogram for malignant neoplasm of breast (principal) | CPT/HCPCS: 77063; 77067 ==

== ENCOUNTER 2023-11-16 15:12 | Outpatient (REF) | payer OTHER, SELFPAY ==
[2023-11-16 15:50] LABS: MANUAL DIFF FLAG NO
[2023-11-16 16:30] LABS: Basophils Percent Auto 0.4 % (0-2); Eosinophils Absolute Auto 0.2 X10*3/uL (0.0-0.4); Eosinophils Percent Auto 2.2 % (0-4); Hematocrit 35.5 % (37.0-47.0); Hemoglobin 11.6 g/dl (12.0-16.0); Imm Gran Abs Auto 0.02 X10*3/uL (0.00-0.03); Imm Gran Pct Auto 0.3 % (0.0-0.4); Lymphocytes Absolute Auto 2.3 X10*3/uL (1.2-4.9); Lymphocytes Percent Auto 33.2 % (20-40); Mean Corpuscular HGB Conc 32.7 g/dl (31.0-35.0); Mean Corpuscular Hemoglobin 26.1 pg (27.0-33.0); Mean Corpuscular Volume 79.8 fL (80.0-98.0); Mean Platelet Volume 8.5 fL (9.4-12.3); Monocytes Absolute Auto 0.5 X10*3/uL (0.1-1.2); Monocytes Percent Auto 7.1 % (2-11); Neutrophils Absolute Auto 3.9 x10*3/uL (2.0-8.3); Neutrophils Percent Auto 56.8 % (45-73); Platelet Count 328 X10*3/uL (160-400); Red Blood Count 4.45 X10*6/uL (4.20-5.50); Red Cell Distribution Width 13.9 % (11.0-16.0); White Blood Count 6.9 X10*3/uL (4.8-10.8)
[2023-11-16 17:14] LABS: Alanine Aminotransferase 15 U/L (0-31); Albumin Level 4.2 g/dL (3.5-5.0); Alkaline Phosphatase 78 U/L (39-117); Anion Gap 10 (12-20); Aspartate Amino Transferase 18 U/L (5-31); Bilirubin Total 0.3 mg/dL (0.0-1.0); Blood Urea Nitrogen 14 mg/dL (9-16); Calcium 9.6 mg/dL (8.4-10.2); Carbon Dioxide 27 mmol/L (22-29); Chloride 105 mmol/L (96-108); Cholesterol 189 mg/dL (<200); Estimated Glomerular Filt Rate > 60; Glucose Fasting 100 mg/dL (60-99); HDL Cholesterol 54 mg/dL (>40); LDL Cholesterol Calculated 125 mg/dL (<100); Potassium 4.5 mmol/L (3.3-5.1); Sodium 137 mmol/L (135-145); Triglycerides 54 mg/dL (<150)
[2023-11-20 18:23] LABS: Class Alternaria alternata 0; Class Aspergillus fumigatus 0; Class Bermuda Grass 0; Class Birch 0; Class Cat Dander 0; Class Cladosporium herbarum 0; Class Cockroach 0; Class Common Ragweed 0; Class Cottonwood 0; Class Derm. pterony 0; Class Dermatophagoides farinae 0; Class Dog Dander 0; Class Elm 0; Class Maple Box Elder 0; Class Mountain Cedar 0; Class Mouse Urine Protein 0; Class Mugwort 0; Class Oak 0; Class Penicillium crysogenum 0; Class Rough Pigweed 0; Class Sheep Sorrel 0; Class Sycamore 0; Class Timothy Grass 0; Class Walnut Tree 0; Class White Ash 0; Class White Mulberry 0; D001 IgE D pteronyssinus <0.10 kU/L; D002 - IgE D farinae <0.10 kU/L; E001 - IgE Cat Dander <0.10 kU/L; E005 - IgE Dog Dander <0.10 kU/L; E072-IgE Mouse Urine <0.10 kU/L; G002 IgE Bermuda Grass <0.10 kU/L; G006 - IgE Timothy Grass <0.10 kU/L; I006-IgE Cockroach, German <0.10 kU/L; Immunoglobulin E 7 kU/L (<OR=114); M001 IgE Penicillium chrysogen <0.10 kU/L; M002 - IgE Cladosporium herbar <0.10 kU/L; M003 - IgE Aspergillus fumigat <0.10 kU/L; M006 - IgE Alternaria alternat <0.10 kU/L; T001 IgE Maple/Box Elder <0.10 kU/L; T003 IgE Common Silver Birch <0.10 kU/L; T006 - IgE Cedar, Mountain <0.10 kU/L; T007 - IgE Oak, White <0.10 kU/L; T008 IgE Elm, American <0.10 kU/L; T010 - IgE Walnut <0.10 kU/L; T011 - IgE Maple Leaf Sycamore <0.10 kU/L; T014 - IgE Cottonwood <0.10 kU/L; T015 - IgE Ash, White <0.10 kU/L; T070 - IgE White Mulberry <0.10 kU/L; W001 - IgE Ragweed, Short <0.10 kU/L; W006 - IgE Mugwort <0.10 kU/L; W014 IgE Pigweed, Common <0.10 kU/L; W018 IgE Sheep Sorrel <0.10 kU/L
[2023-11-23 13:33] LABS: Asperg fumigatus Precip Abs NEGATIVE (NEGATIVE); Micropoly faeni Abs NEGATIVE (NEGATIVE); Pigeon serum Abs NEGATIVE (NEGATIVE); Saccharo pora viridis Abs NEGATIVE (NEGATIVE); Thermo candidus Abs NEGATIVE (NEGATIVE); Thermoa vulgaris #1 NEGATIVE (NEGATIVE)
== END 2023-11-16 15:13 | disposition home or self-care (01) ==
LOC: HO.LAB 15:12
PROVIDERS: PCP Internal Medicine; Visit Provider Hospitalist
DX: J45.40 Moderate persistent asthma, uncomplicated (principal); J30.9 Allergic rhinitis, unspecified; E78.5 Hyperlipidemia, unspecified; T78.40XA Allergy, unspecified, initial encounter; R91.8 Other nonspecific abnormal finding of lung field; R91.1 Solitary pulmonary nodule
CPT/HCPCS: 36415; 80053; 80061; 82785; 85025; 86003; 86331; 86606; 86609; 99212

== ENCOUNTER 2023-11-16 15:12 | Outpatient (AMB) | payer OTHER, SELFPAY ==
[2023-11-16 15:18] VITALS: PULSE 88; O2SAT 99; BMI 35.3
--- NOTE | 2023-11-16 15:18 | MHC.OFFVIS ---
Intake Vital Signs 11/16/23 15:18 Height 5 ft Weight 181 lb BMI 35.3 Pulse 88 Pulse Source Pulse Oximeter Pulse Oximetry (%) 99 Oxygen Delivery Method Room Air Intake Visit Reasons: Asthma Head Of Drama Required: No Allergies duloxetine Adverse Reaction (Severe, Verified 11/16/23 15:19) Headache gabapentin Adverse Reaction (Intermediate, Verified 11/16/23 15:19) joint pain sumatriptan [SUMATRIPTAN] Adverse Reaction (Intermediate, Verified 11/16/23 15:19) Nausea, vomiting, HPI HPI Comments History of Present Illness Details The patient is a 38-year-old woman with a known history of asthma. The patient has had multiple evaluations in the ER because of asthma exacerbations. She feels like asthma is not controlled. She feels like she needs to use her rescue inhaler on a daily basis. She only gets partial resolution when she uses inhalers. On further questioning she has not tried many maintenance inhalers at this time. In addition to that she has not had any allergy testing or pulmonary function study testing. Therefore, the patient will start maintenance therapy in addition to undergoing blood work and pulmonary function studies in the near future. 12/30/2022 the patient is here for pulmonary follow-up visit. The patient has been having her ups and Downs. Significant allergy symptoms during the spring. The Dupixent has been only partially helpful. We had referred her to allergy but she was given an appointment in May. Will go ahead and placed a referral to the actual doctor that we requested in the 1st place that had left the practice and hopefully she can be seen sooner. So therefore will not any change any of her immunotherapy as she is awaiting that visit with Allergy and immunology. In the meantime the patient did respond very well to Trelegy. She is not responding to Incruse nor budesonide. Therefore will go ahead and resend the Trelegy to the pharmacy as this was the 1 medication that helped her feel better. Hopefully we can get her on that at this time. In the meantime she is going to continue with allergy therapies and hopefully we can get her to Allergy soon. 06/30/2023 the patient is here for a pulmonary follow-up visit. The patient overall has been doing well. She continues on Dupixent injection. Although, she does not have any maintenance therapy. The patient was supposed to be on Trelegy but was not covered. Therefore she is been using her rescue inhaler on a daily basis. Will go ahead and send her a prescription for Symbicort that she can use twice a day. Hopefully with the Symbicort she will need to use her rescue inhaler. She will continue to use it Dupixent every 2 weeks because has been affecting beneficial. She also was found to have H pylori and she was placed on multiple medications for that making it very difficult with adverse effects. She is having significant reflux disease. She continues to try reflux diet. She is been on omeprazole 20 mg. will go ahead and increase the omeprazole to 40 mg to maximize the effect. She also follow-up with GI doctor. 11/16/2023 the patient is here for a pulmonary follow-up visit. Overall she is doing okay. She does continues to have frequent asthma symptoms with chest tightness and wheezing. She does use her rescue inhaler more than twice a week. She did respond well Dupixent. Then she lost her insurance and then she had to stop it. Now she has a regular insurance and will try to continue since it was affecting beneficial. She did have her allergy testing although she did have a reaction appeared to be delayed. Will go ahead and request blood work because is not clear based on her description of the allergy testing. She will follow-up with Allergy immunology in the near future. She does have a trip to [place] scheduled for the next week. I will make sure she can take some medicine with her in case she has worsening disease there. She continues to responding to the Symbicort. She also has a rescue inhaler and she will make sure to take a nebulizer with her for her travel. [facility] Medical History (Updated 11/19/23 @ 21:55 by José Antonio Rodriguez MD) Allergies AKIRA positive H. pylori infection Asthma Allergic rhinitis Diabetes mellitus Fibromyalgia Obese GERD (gastroesophageal reflux disease) Allergy to mold spores Chest pain Hypovitaminosis D Migraines Surgical History (Updated 08/15/23 @ 11:28 by Mckenna Lu MD) Hx of retained foreign body fully removed (11/23/17) History of tubal ligation History of section Family History Father CVD (cardiovascular disease) Mother Chronic mental illness Breast cancer Schizophrenia Mental health disorder Maternal Grandmother Hypertension Stroke Paternal Grandmother Breast cancer Paternal Aunt Breast cancer Paternal Aunt Cancer of unknown origin Family/Other Chronic mental illness Mental health disorder Social History Household Members: Family Housing: House Alcohol intake: never Patient Tobacco Use Status: Never used Tobacco e-Cigarette/Vaping Use: Never Used Second Hand Smoke Exposure: No service: No Current occupational status: employed Current occupational exposures/hazards: No Cognitive needs: No Hearing needs: No Vision needs: No Review of Systems Const Reports fatigue and Denies fever(s) Eyes Reports no additional complaints, Denies change in vision and Denies other visual disturbances Card Reports dyspnea on exertion Resp Denies chest congestion, Reports cough, Reports dyspnea on exertion and Reports wheezing GI Reports abdominal pain, Denies change in bowel habits, Denies excessive flatus, Reports dyspepsia, Reports heartburn, Denies nausea and Denies vomiting Denies urinary incontinence, Denies urinary hesitancy and Denies urinary urgency Endo Reports fatigue Aller/Immun Reports wheezing Physical Exam Vital Signs: Last Vital Signs Pulse 88 11/16/23 15:18 Pulse Ox 99 11/16/23 15:18 Oxygen Delivery Method Room Air 11/16/23 15:18 BMI result Body Mass Index 35.3 Const General: alert Neck Neck: Yes normal visual inspection, Yes full ROM and Yes no lymphadenopathy Chest Chest palpation & inspection: normal inspection of the chest Resp Effort & Inspection: normal respiratory effort Auscultation: no wheezes and diminished lung sounds Cardio Rate: regular rate Rhythm: regular rhythm Heart sounds: S1 normal heart sound present and S2 normal heart sound present GI Palpation (GI): Soft to palpation and nontender Auscultation: normal bowel sounds General: Yes no CVA tenderness Back/Spine/Pelvis Back: no CVA tenderness Skin General skin exam: rashes and/or lesions noted Assessment & Plan Assessment & Plan (1) Chronic allergic rhinitis: Code(s): J30.9 - Allergic rhinitis, unspecified (2) Asthma: Code(s): J45.909 - Unspecified asthma, uncomplicated Qualifiers: Asthma complication type: uncomplicated Asthma persistence: persistent Asthma severity: moderate Qualified Code(s): J45.40 - Moderate persistent asthma, uncomplicated (3) Allergies: Code(s): T78.40XA - Allergy, unspecified, initial encounter Qualifiers: Encounter type: subsequent encounter Qualified Code(s): T78.40XD - Allergy, unspecified, subsequent encounter (4) Asthma: Code(s): J45.909 - Unspecified asthma, uncomplicated Qualifiers: Asthma severity: severe Asthma persistence: persistent Asthma complication type: uncomplicated Qualified Code(s): J45.50 - Severe persistent asthma, uncomplicated (5) GERD (gastroesophageal reflux disease): Code(s): K21.9 - Gastro-esophageal reflux disease without esophagitis Qualifiers: Esophagitis presence: esophagitis presence not specified Qualified Code(s): K21.9 - Gastro-esophageal reflux disease without esophagitis Plan continue Symbicort Xopenex as needed due to increase tremors and palpitations continue Dupixent bloodwork/allergy testing continue Daliresp 500mcg reflux diet Allergy referral in progress F/U 6 months Orders: Orders Immunoglobulin E 11/16/23 J30.9 - Allergic rhinitis, unspecified, J45.40 - Moderate persistent asthma, uncomplicated, T78.40XA - Allergy, unspecified, initial encounter Complete Blood Count Auto Diff 11/16/23 J30.9 - Allergic rhinitis, unspecified, J45.40 - Moderate persistent asthma, uncomplicated, T78.40XA - Allergy, unspecified, initial encounter Hypersensitive Pneumonitis Prf 11/16/23 J30.9 - Allergic rhinitis, unspecified, J45.40 - Moderate persistent asthma, uncomplicated, R91.8 - Other nonspecific abnormal finding of lung field, T78.40XA - Allergy, unspecified, initial encounter Resp Allergy Profile Region I 11/16/23 J30.9 - Allergic rhinitis, unspecified, J45.40 - Moderate persistent asthma, uncomplicated, R91.1 - Solitary pulmonary nodule, T78.40XA - Allergy, unspecified, initial encounter Medications: New prednisone PO daily; Take 6 tabs daily x 3 days, then 5 tabs x 3 days, then 4 tabs x 3 days, then 3 tabs x 3 days, then 2 tabs daily x 3 days, then 1 tab x 3 days to complete. 63 tabs 0RF 18 days doxycycline monohydrate 100 mg PO BID 28 tabs 0RF 14 days Coding Level of Care Code Est Pt Level 4 (86100) Diagnoses Chronic allergic rhinitis J30.9 Moderate persistent asthma without complication J45.40 Asthma complication type: uncomplicated Asthma persistence: persistent Asthma severity: moderate Allergy, subsequent encounter T78.40XD Encounter type: subsequent encounter Gastroesophageal reflux disease, unspecified whether esophagitis present K21.9 Esophagitis presence: esophagitis presence not specified Time Spent (min) 17
== END 2023-11-16 15:36 | disposition home or self-care (01) ==
PROVIDERS: PCP Internal Medicine; Visit Provider Hospitalist
DX: J30.9 Allergic rhinitis, unspecified (principal); J45.40 Moderate persistent asthma, uncomplicated; T78.40XD Allergy, unspecified, subsequent encounter; K21.9 Gastro-esophageal reflux disease without esophagitis; J45.50 Severe persistent asthma, uncomplicated
CPT/HCPCS: 99214

== ENCOUNTER 2024-01-24 07:40 | Outpatient (AMB) | payer OTHER, SELFPAY ==
--- NOTE | 2024-01-24 07:42 | A.OFFPC_ITS ---
Vital Signs 01/24/24 07:43 Height 5 ft 3 in Weight 186 lb BMI 32.9 BP 108/80 Blood Pressure Location Lt brachial Position Sitting Intake Visit Reasons: Annual PE- NEEDS PHQ9 Intake Note: Patient here for an annual physical exam Neurology Nurse Required: No Accompanied by: Self / Same As Patient Allergies duloxetine Adverse Reaction (Severe, Verified 01/24/24 07:55) Headache gabapentin Adverse Reaction (Intermediate, Verified 01/24/24 07:55) joint pain sumatriptan [SUMATRIPTAN] Adverse Reaction (Intermediate, Verified 01/24/24 07:55) Nausea, vomiting, Medication List - Last Reconciled 01/24/24 by Norma Keane MD albuterol sulfate 90 mcg/actuation 2 inhalations inhalation Q6H PRN 30 days albuterol sulfate 2.5 mg (3 mL) inhalation Q4H PRN 30 days bismuth subsalicylate 1 tab PO QID 14 days Brace,wrist As directed budesonide 0.5 mg (2 mL) inhalation BID budesonide-formoterol 160-4.5 mcg/actuation (Symbicort) 2 puffs inhalation BID 30 days xzlexrmiss-izyesskvgbwcu-atxn 50-325-40 mg 1 tab PO DAILY PRN 30 days cetirizine 10 mg PO DAILY NS cholecalciferol (vitamin D3) 50 mcg PO DAILY 90 days cyclobenzaprine 10 mg PO TID PRN dupilumab 300 mg (2 mL) subcut Q2W epinephrine (EpiPen 2-[place]) 0.3 mg (0.3 mL) IM Q10M PRN 30 days ferrous sulfate (iron) 325 mg PO DAILY fluticasone propionate 50 mcg/actuation (Flonase Allergy Relief) 1 spray intranasal BID 30 days zbljzelclfe-xwcgankcs-haldfqra 200-62.5-25 mcg (Trelegy Ellipta) 1 inh inhalation DAILY 30 days ibuprofen 800 mg PO TID levalbuterol HCl 1.25 mg (3 mL) inhalation Q6H PRN levalbuterol tartrate 45 mcg/actuation 2 puffs inhalation Q6H PRN methocarbamol 500 mg PO DAILY montelukast 10 mg PO BEDTIME nebulizers As directed omeprazole 40 mg PO DAILY 30 days ondansetron HCl 8 mg PO BID roflumilast (Daliresp) 500 mcg PO DAILY 30 days topiramate 25 mg PO DAILY Tobacco use date assessed: 01/24/24 Dental Screening Dental Screen Date: 01/24/24 Did you have a dental visit in the last 12 months?: Yes Did you have a dental problem in the last 6 months where you did not have access to dental care?: No Was dental information given to patient?: Patient has dentist HPI HPI Comments History of Present Illness Details This is a 38-year-old female with mild major depression that comes for her physical exam. She does follows up with counseling and I will start her on bupropion. Last mammogram was 10/03/2023 and was normal. Pap smear done 08/02/2023 was normal as per patient. No chest pain or shortness on breath. [facility] Medical History Allergies NORMA positive H. pylori infection Asthma Allergic rhinitis Diabetes mellitus Fibromyalgia Obese GERD (gastroesophageal reflux disease) Allergy to mold spores Chest pain Hypovitaminosis D Migraines Surgical History Hx of retained foreign body fully removed (11/23/17) History of tubal ligation History of section Family History Father CVD (cardiovascular disease) Mother Chronic mental illness Breast cancer Schizophrenia Mental health disorder Maternal Grandmother Hypertension Stroke Paternal Grandmother Breast cancer Paternal Aunt Breast cancer Paternal Aunt Cancer of unknown origin Family/Other Chronic mental illness Mental health disorder Social History Household Members: Family Housing: House Alcohol intake: never Patient Tobacco Use Status: Never used Tobacco e-Cigarette/Vaping Use: Never Used Second Hand Smoke Exposure: No service: No Current occupational status: employed Current occupational exposures/hazards: No Cognitive needs: No Hearing needs: No Vision needs: No Questionnaire PHQ-9 Over the last 2 weeks, how often have you been bothered by any of the following problems? 1. Little interest or pleasure in doing things: not at all 2. Feeling down, depressed, or hopeless: not at all 3. Trouble falling or staying asleep, or sleeping too much: more than half the days 4. Feeling tired or having little energy: more than half the days 5. Poor appetite or overeating: not at all 6. Feeling bad about yourself - or that you are a failure or have let yourself or your family down: not at all 7. Trouble concentrating on things, such as reading the newspaper or watching television: not at all 8. Moving or speaking so slowly that other people could have noticed. Or the opposite - being so fidgety or restless that you have been moving around a lot more than usual: not at all 9. Thoughts that you would be better off or of hurting yourself in some way: not at all Total score: 4 Depression Screening Interpretation: Positive Depression Screening Follow-up: Existing condition, Community Mental Health Worker F/U and Follow-up Visit Requested Depression Screening Done: Yes 85921 - PHQ-9 Billing: Yes Source: Developed by Drs. Huber Zamora, Opal Wyatt, Demetrius Figueroa and colleagues, with an educational yvrose from [employer]. Thrive Questionnaire Date Thrive assessed: 01/24/24 I am a: Patient What is your living situation today?: I have a steady place to live Within the past 12 months, did the food you bought not last and you didn't have the money to get more?: Never true Within the past 12 months, did you worry whether your food would run out before you got money to buy more?: Never true Do you have trouble paying for medicines?: No Do you have trouble getting transportation to medical appointments?: No Do you have trouble paying your heating and electricity bill?: No Do you have trouble taking care of your child, family member or friend?: No Do you have trouble with day-to-day activities such as bathing, preparing meals, shopping, managing finances, etc.?: No Are you currently unemployed and looking for a job?: No Are you interested in more education?: No Please select the resources that you would like help with: None Currently or been in a relationship where the following occur: no concerns reported THRIVE Score: 0 AUDIT C Alcohol Use Questionnaire (AUDIT-C) 1. How often do you have a drink containing alcohol?: Never Total Score: 0 QUYNH-7 AMB Questionnaire QUYNH-7 Date QUYNH - 7 assessed: 01/24/24 Feeling nervous, anxious, or on edge: 0 = Not at all Not being able to stop or control worryin = Not at all Worrying too much about different things: 0 = Not at all Trouble relaxin = Not at all Being so restless that it is hard to sit still: 0 = Not at all Becoming easily annoyed or irritable: 0 = Not at all Feeling afraid as if something awful might happen: 0 = Not at all Total QUYNH-7 score (0-4 normal; 5-9 mild; 10-14 moderate; 15-21 severe): 0 Source: Developed by Drs. Huber Zamora, Opal Wyatt, Demetrius Figueroa and colleagues, with an educational yvrose from [employer]. QUYNH-7 Assessment Billing QUYNH-7 Assessment Tool: QUYNH-7 Assessment 99895 Review of Systems Const All systems reviewed & are unremarkable except as noted in HPI and below Card Denies chest pain at rest, Denies chest pain with activity, Denies edema, Denies irregular heart rhythm, Denies claudication, Denies dyspnea, Denies dyspnea on exertion, Denies orthopnea, Denies paroxysmal nocturnal dyspnea and Denies slow heart rate Resp Denies cough, Denies dyspnea and Denies dyspnea on exertion Physical exam (Primary Care) Vital Signs: Last Vital Signs BP 108/80 01/24/24 07:43 BMI result Body Mass Index 32.9 Tobacco/Smoking Status: Tobacco use Status Tobacco use date assessed 01/24/24 01/24/24 07:49 Patient Tobacco Use Status Never used Tobacco 01/24/24 07:49 e-Cigarette/Vaping Use Never Used 01/24/24 07:49 PHQ-9: PHQ-9 Score PHQ-9: Total score 4 01/24/24 07:49 Depression Screening Interpretation: Positive Depression Screening Follow-up: Existing condition, Community Mental Health Worker F/U and Follow-up Visit Requested Thrive Assessment: Date of Thrive Assessment Date Thrive assessed 01/24/24 01/24/24 07:49 Currently or been in a relationship where the following occur: no concerns reported Const Orientation/consciousness: patient oriented x3 HENMT Head: Yes normal to inspection, Yes normocephalic and Yes atraumatic Ears: external ears normal Eyes General: appearance normal, both eyes and all related structures Eyelids: Yes eyelids normal Conjunctivae: conjunctivae normal Neck Neck: Yes normal visual inspection and Yes supple Resp Effort & Inspection: normal respiratory effort Auscultation: clear to auscultation bilaterally Cardio Jugular venous distension: no JVD Rate: regular rate Rhythm: regular rhythm Heart sounds: S1 normal heart sound present and S2 normal heart sound present GI Inspection: Yes normal to inspection Palpation (GI): Soft to palpation and nontender Auscultation: normal bowel sounds Skin General skin exam: no rashes or lesions noted Neuro General: patient oriented x3 and no focal motor deficits Extrem General: Yes full ROM Psych Appearance: grossly normal Assessment and Plan Assessment & Plan (1) Physical exam: Code(s): Z00.00 - Encounter for general adult medical examination without abnormal findings Plan: Repeat in a year. (2) Mild major depression: Code(s): F32.0 - Major depressive disorder, single episode, mild Plan: Start bupropion. Follow-up visit requested. Medications: New bupropion HCl XL 150 mg PO QAM 90 days 90 tabs 1RF F32.0 - Major depressive disorder, single episode, mild Refilled knrywrjdie-ahzfsmzufjwqp-qvtq 50-325-40 mg 1 tab PO DAILY 30 days PRN 25 tabs 0RF pain cyclobenzaprine 10 mg PO TID PRN 90 tabs 1RF muscle spasm Coding Level of Care Code Est Pt Prev Care 40-64y(42773) Diagnoses Physical exam Z00.00 Mild major depression F32.0 Additional Codes QUYNH-7 Assessment Billing - QUYNH-7 Assessment Tool: QUYNH-7 Assessment 72903 ([id number]) Time Spent (min) 32
[2024-01-24 07:43] VITALS: BP 108/80; BMI 32.9
== END 2024-01-24 08:07 | disposition home or self-care (01) ==
PROVIDERS: PCP Internal Medicine; Visit Provider Internal Medicine
DX: Z00.00 Encounter for general adult medical examination without abnormal findings (principal); F32.0 Major depressive disorder, single episode, mild
CPT/HCPCS: 99396

== ENCOUNTER 2024-02-28 12:42 | Outpatient (REF) | payer OTHER, SELFPAY ==
[2024-02-28 14:57] LABS: Thyroid Stimulating Hormone 1.07 uIU/mL (0.32-4.0)
[2024-02-29 20:18] LABS: Immunoglobulin E 9 kU/L (<OR=114)
== END 2024-02-28 12:43 | disposition home or self-care (01) ==
LOC: HO.LAB 12:42
PROVIDERS: Absent Provider Internal Medicine; PCP Internal Medicine; Visit Provider Hospitalist
DX: E66.9 Obesity, unspecified (principal); J45.40 Moderate persistent asthma, uncomplicated; T78.40XA Allergy, unspecified, initial encounter; J30.9 Allergic rhinitis, unspecified
CPT/HCPCS: 36415; 82785; 84443

== ENCOUNTER 2024-05-23 14:46 | Outpatient (AMB) | payer OTHER, SELFPAY ==
[2024-05-23 14:56] VITALS: BP 126/70; PULSE 90; O2SAT 100; BMI 36.6
--- NOTE | 2024-05-23 14:56 | MHC.OFFVIS ---
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 The patient has had multiple evaluations in the ER because of asthma exacerbations. She feels like asthma is not controlled. She feels like she needs to use her rescue inhaler on a daily basis. She only gets partial resolution when she uses inhalers. On further questioning she has not tried many maintenance inhalers at this time. In addition to that she has not had any allergy testing or pulmonary function study testing. Therefore, the patient will start maintenance therapy in addition to undergoing blood work and pulmonary function studies in the near future. 12/30/2022 the patient is here for pulmonary follow-up visit. The patient has been having her ups and Downs. Significant allergy symptoms during the spring. The Dupixent has been only partially helpful. We had referred her to allergy but she was given an appointment in May. Will go ahead and placed a referral to the actual doctor that we requested in the 1st place that had left the practice and hopefully she can be seen sooner. So therefore will not any change any of her immunotherapy as she is awaiting that visit with Allergy and immunology. In the meantime the patient did respond very well to Trelegy. She is not responding to Incruse nor budesonide. Therefore will go ahead and resend the Trelegy to the pharmacy as this was the 1 medication that helped her feel better. Hopefully we can get her on that at this time. In the meantime she is going to continue with allergy therapies and hopefully we can get her to Allergy soon. 06/30/2023 the patient is here for a pulmonary follow-up visit. The patient overall has been doing well. She continues on Dupixent injection. Although, she does not have any maintenance therapy. The patient was supposed to be on Trelegy but was not covered. Therefore she is been using her rescue inhaler on a daily basis. Will go ahead and send her a prescription for Symbicort that she can use twice a day. Hopefully with the Symbicort she will need to use her rescue inhaler. She will continue to use it Dupixent every 2 weeks because has been affecting beneficial. She also was found to have H pylori and she was placed on multiple medications for that making it very difficult with adverse effects. She is having significant reflux disease. She continues to try reflux diet. She is been on omeprazole 20 mg. will go ahead and increase the omeprazole to 40 mg to maximize the effect. She also follow-up with GI doctor. 11/16/2023 the patient is here for a pulmonary follow-up visit. Overall she is doing okay. She does continues to have frequent asthma symptoms with chest tightness and wheezing. She does use her rescue inhaler more than twice a week. She did respond well Dupixent. Then she lost her insurance and then she had to stop it. Now she has a regular insurance and will try to continue since it was affecting beneficial. She did have her allergy testing although she did have a reaction appeared to be delayed. Will go ahead and request blood work because is not clear based on her description of the allergy testing. She will follow-up with Allergy immunology in the near future. She does have a trip to [place] scheduled for the next week. I will make sure she can take some medicine with her in case she has worsening disease there. She continues to responding to the Symbicort. She also has a rescue inhaler and she will make sure to take a nebulizer with her for her travel. 05/23/2024 the patient is here for pulmonary follow-up visit. The patient has been struggling with her asthma symptoms. She has not been any better. She has been trying to be adherent to her therapy. Although she did gain a lot of medications at this time. She continues on the Dupixent injection. Does every 2 weeks. Although she takes him she is not sure how much they are helping. We did review her blood work from 12/02/2023 and her eosinophils were normal in the IgE also normal. Therefore, this is something we can consider coming off specially if she has not seen any improvement. She does continue on the Daliresp and does continue on the Symbicort inhaler. Her Symbicort has been very effective. Will go ahead and add a long-acting muscarinic antagonist see that provides relief. She is also wondering about budesonide. I can send the budesonide she can use it for now. However, the patient understands now that budesonide his steroid and by taking the Symbicort and the budesonide this could result in systemic manifestation the steroids. And she does not want that. Therefore will try to wean her off the budesonide once she is feeling better. The patient should have a repeat chest x-ray and also pulmonary function studies. Will continue to try a assess her asthma symptoms but we possibly could consider switching her Dupixent to test prior where we treated more of a nonallergic asthma such as neutrophilic predominant asthma which may be the issue with the patient at this time. [facility] Medical History Allergies AKIRA positive H. pylori infection Asthma Allergic rhinitis Diabetes mellitus Fibromyalgia Obese GERD (gastroesophageal reflux disease) Allergy to mold spores Chest pain Hypovitaminosis D Migraines Surgical History Hx of retained foreign body fully removed (11/23/17) History of tubal ligation History of section Family History Father CVD (cardiovascular disease) Mother Chronic mental illness Breast cancer Schizophrenia Mental health disorder Maternal Grandmother Hypertension Stroke Paternal Grandmother Breast cancer Paternal Aunt Breast cancer Paternal Aunt Cancer of unknown origin Family/Other Chronic mental illness Mental health disorder Social History Household Members: Family Housing: House Alcohol intake: never Patient Tobacco Use Status: Never used Tobacco e-Cigarette/Vaping Use: Never Used Second Hand Smoke Exposure: No service: No Current occupational status: employed Current occupational exposures/hazards: No Cognitive needs: No Hearing needs: No Vision needs: No Review of Systems Const Reports fatigue and Denies fever(s) Eyes Reports no additional complaints, Denies change in vision and Denies other visual disturbances Card Reports dyspnea on exertion Resp Denies chest congestion, Reports cough, Reports dyspnea on exertion and Reports wheezing GI Reports abdominal pain, Denies change in bowel habits, Denies excessive flatus, Reports dyspepsia, Reports heartburn, Denies nausea and Denies vomiting Denies urinary incontinence, Denies urinary hesitancy and Denies urinary urgency Endo Reports fatigue Aller/Immun Reports wheezing Physical Exam Vital Signs: Last Vital Signs Pulse 90 05/23/24 14:56 BP 126/70 05/23/24 14:56 Pulse Ox 100 05/23/24 14:56 Oxygen Delivery Method Room Air 05/23/24 14:56 BMI result Body Mass Index 36.6 Const General: alert Neck Neck: Yes normal visual inspection, Yes full ROM and Yes no lymphadenopathy Chest Chest palpation & inspection: normal inspection of the chest Resp Effort & Inspection: normal respiratory effort Auscultation: no wheezes and diminished lung sounds Cardio Rate: regular rate Rhythm: regular rhythm Heart sounds: S1 normal heart sound present and S2 normal heart sound present GI Palpation (GI): Soft to palpation and nontender Auscultation: normal bowel sounds General: Yes no CVA tenderness Back/Spine/Pelvis Back: no CVA tenderness Skin General skin exam: rashes and/or lesions noted Assessment & Plan Assessment & Plan (1) Chronic allergic rhinitis: Code(s): J30.9 - Allergic rhinitis, unspecified Category: Medical (2) Asthma: Code(s): J45.909 - Unspecified asthma, uncomplicated Category: Medical Qualifiers: Asthma complication type: uncomplicated Asthma persistence: persistent Asthma severity: moderate Qualified Code(s): J45.40 - Moderate persistent asthma, uncomplicated (3) Allergies: Code(s): T78.40XA - Allergy, unspecified, initial encounter Category: Medical Qualifiers: Encounter type: subsequent encounter Qualified Code(s): T78.40XD - Allergy, unspecified, subsequent encounter (4) Asthma: Code(s): J45.909 - Unspecified asthma, uncomplicated Category: Medical Qualifiers: Asthma complication type: uncomplicated Asthma persistence: persistent Asthma severity: severe Qualified Code(s): J45.50 - Severe persistent asthma, uncomplicated (5) GERD (gastroesophageal reflux disease): Code(s): K21.9 - Gastro-esophageal reflux disease without esophagitis Category: Medical Qualifiers: Esophagitis presence: esophagitis presence not specified Qualified Code(s): K21.9 - Gastro-esophageal reflux disease without esophagitis Plan continue Symbicort Add Spiriva Should wean off the budesonide Xopenex as needed due to increase tremors and palpitations continue Dupixent, consider switching to Tezspire continue Daliresp 500mcg reflux diet CXR F/U 3-4 months with PFTs Orders: Orders PFT pulmonary function test 2 Months J45.40 - Moderate persistent asthma, uncomplicated XR chest 2V 2 Months J45.40 - Moderate persistent asthma, uncomplicated Medications: New tiotropium bromide 2.5 mcg/actuation (Spiriva Respimat) 2 puffs inhalation DAILY 30 days 1 ea 11RF Changed From budesonide 0.5 mg (2 mL) inhalation BID 360 mL 0RF To budesonide 0.5 mg (2 mL) inhalation BID 30 days 120 mL 6RF Coding Level of Care Code Est Pt Level 4 (48213) Diagnoses Chronic allergic rhinitis J30.9 Moderate persistent asthma without complication J45.40 Asthma complication type: uncomplicated Asthma persistence: persistent Asthma severity: moderate Allergy, subsequent encounter T78.40XD Encounter type: subsequent encounter Gastroesophageal reflux disease, unspecified whether esophagitis present K21.9 Esophagitis presence: esophagitis presence not specified Time Spent (min) 17
== END 2024-05-23 15:18 | disposition home or self-care (01) ==
PROVIDERS: PCP Internal Medicine; Visit Provider Hospitalist
DX: J30.9 Allergic rhinitis, unspecified (principal); J45.40 Moderate persistent asthma, uncomplicated; T78.40XD Allergy, unspecified, subsequent encounter; K21.9 Gastro-esophageal reflux disease without esophagitis; J45.50 Severe persistent asthma, uncomplicated
CPT/HCPCS: 99214

== ENCOUNTER → 2024-05-23 14:46 | Outpatient (BNVA) | payer OTHER, SELFPAY | PROVIDERS: PCP Internal Medicine; Visit Provider Hospitalist | DX: J45.40 Moderate persistent asthma, uncomplicated (principal); J30.9 Allergic rhinitis, unspecified; T78.40XD Allergy, unspecified, subsequent encounter; K21.9 Gastro-esophageal reflux disease without esophagitis | CPT/HCPCS: 99212 ==

== ENCOUNTER → 2024-07-16 10:00 | Outpatient (BNV) | payer OTHER, SELFPAY | PROVIDERS: PCP Internal Medicine; Visit Provider Internal Medicine Pulmonary Disease | DX: J45.40 Moderate persistent asthma, uncomplicated (principal) | CPT/HCPCS: 94060; 94727; 94729 ==

== ENCOUNTER 2024-07-16 10:05 | Outpatient (REF) | payer OTHER, SELFPAY ==
[2024-07-16 09:59] VITALS: PULSE 102; O2SAT 100
--- NOTE | 2024-07-16 10:00 | PFT_ITS ---
Flows: FEV1: 112 % of predicted at 3.24 L FVC: 105 % of predicted at 3.70 L FEV1/FVC: 88 % Bronchodilator response: Absent Volumes: Total lung capacity: 97 % of predicted at 4.89 L Residual volume: 85 % of predicted at 1.07 L Slow vital capacity: 101 % of predicted at 3.82 L Expiratory reserve volume: 37 % of predicted at 0.43 L Diffusion capacity: Normal Impression: No obstructive or restrictive ventilatory defect. No bronchodilator response. Decreased expiratory reserve volume suggests extrathoracic restriction likely secondary to abdominal obesity. MTDD
== END 2024-07-16 10:06 | disposition home or self-care (01) ==
LOC: HO.RESP 10:05
PROVIDERS: PCP Internal Medicine; Visit Provider Hospitalist
DX: J45.40 Moderate persistent asthma, uncomplicated (principal)
CPT/HCPCS: 94010; 94640; 94727; 94729

== ENCOUNTER 2024-07-29 08:14 | Outpatient (AMB) | payer OTHER, SELFPAY ==
--- NOTE | 2024-07-29 08:20 | A.OFFPC_ITS ---
Vital Signs 07/29/24 08:22 Height 5 ft 3 in Weight 189 lb BMI 33.5 BP 126/80 Blood Pressure Location Lt brachial Position Sitting Intake Visit Reasons: asthma, depression Intake Note: Patient here for a follow up depression, asthma Vp Packaging Required: No Accompanied by: Self / Same As Patient Allergies duloxetine Adverse Reaction (Severe, Verified 07/29/24 08:40) Headache gabapentin Adverse Reaction (Intermediate, Verified 07/29/24 08:40) joint pain sumatriptan [SUMATRIPTAN] Adverse Reaction (Intermediate, Verified 07/29/24 08:40) Nausea, vomiting, Medication List - Last Reconciled 07/29/24 by Norma Keane MD albuterol sulfate 2.5 mg (3 mL) inhalation Q4H PRN 30 days albuterol sulfate 90 mcg/actuation 2 inhalations inhalation Q6H PRN 30 days bismuth subsalicylate 1 tab PO QID 14 days Brace,wrist As directed budesonide 0.5 mg (2 mL) inhalation BID 30 days budesonide-formoterol 160-4.5 mcg/actuation (Symbicort) 2 puffs inhalation BID 30 days bupropion HCl XL 150 mg PO QAM 90 days bwqqsyhbgw-knylhnddrwlri-gzdd 50-325-40 mg 1 tab PO DAILY PRN 30 days cetirizine 10 mg PO DAILY NS cholecalciferol (vitamin D3) 50 mcg PO DAILY 90 days cyclobenzaprine 10 mg PO TID PRN dupilumab 300 mg (2 mL) subcut Q2W epinephrine (EpiPen 2-[place]) 0.3 mg (0.3 mL) IM Q10M PRN 30 days ferrous sulfate (iron) 325 mg PO DAILY fluticasone propionate 50 mcg/actuation (Flonase Allergy Relief) 1 spray intranasal BID 30 days hdkbxcfgxoh-cflhokcio-cpgvcehu 200-62.5-25 mcg (Trelegy Ellipta) 1 inh inhalation DAILY 30 days ibuprofen 800 mg PO TID levalbuterol HCl 1.25 mg (3 mL) inhalation Q6H PRN levalbuterol tartrate 45 mcg/actuation 2 puffs inhalation Q6H PRN montelukast 10 mg PO BEDTIME nebulizers As directed omeprazole 40 mg PO DAILY 30 days ondansetron HCl 8 mg PO BID prednisone PO daily; Take 2 tabs daily x 5 days, then 1 tablet daily x 5 days 10 days roflumilast (Daliresp) 500 mcg PO DAILY 30 days tiotropium bromide 2.5 mcg/actuation (Spiriva Respimat) 2 puffs inhalation DAILY 30 days topiramate 25 mg PO DAILY Tobacco use date assessed: 01/24/24 Dental Screening Dental Screen Date: 01/24/24 HPI HPI Comments History of Present Illness Details The patient is a 38-year-old female presenting with allergic reactions to Duloxetine, Gabapentin, and Sumatriptan. She reports experiencing headaches with Duloxetine, joint pain with Gabapentin, and nausea and vomiting with Sumatriptan. Additionally, the patient is managing depression, which she states is well-controlled at present. She is also undergoing evaluation for pulmonary issues, with an upcoming appointment scheduled for additional testing. The patient mentioned that an earlier pulmonary test was repeated several times, potentially affecting its accuracy. She has been instructed to bring this matter up with her current provider. Currently, she does not exhibit signs of infections and has never smoked or consumed alcohol. Her blood pressure readings vary between 99 to 108 mmHg. I will restart her on Topamax for her migraine prophylaxis and refill her Fioricet for her migraines as needed. Her asthma is follow by pulmonology and has not being controlled even with long-acting inhaler. She complains of chest pain and sinus tachycardia and Holter monitor with EKG will be ordered. She has multiple skin lesions that bothers her in her back and will be referred to Dermatology. Depression has been stable with bupropion. [facility] Medical History (Updated 07/29/24 @ 08:53 by Norma Keane MD) Chest pain Allergies NORMA positive H. 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 Hypovitaminosis D Migraines Surgical History Hx of retained foreign body fully removed (11/23/17) History of tubal ligation History of section Family History Father CVD (cardiovascular disease) Mother Chronic mental illness Breast cancer Schizophrenia Mental health disorder Maternal Grandmother Hypertension Stroke Paternal Grandmother Breast cancer Paternal Aunt Breast cancer Paternal Aunt Cancer of unknown origin Family/Other Chronic mental illness Mental health disorder Social History Household Members: Family Housing: House Alcohol intake: never Patient Tobacco Use Status: Never used Tobacco e-Cigarette/Vaping Use: Never Used Second Hand Smoke Exposure: No service: No Current occupational status: employed Current occupational exposures/hazards: No Cognitive needs: No Hearing needs: No Vision needs: No Questionnaire Thrive Questionnaire Date Thrive assessed: 01/24/24 QUYNH-7 AMB Questionnaire QUYNH-7 Date QUYNH - 7 assessed: 01/24/24 Source: Developed by Drs. Huber Zamora, Opal Wyatt, Demetrius Figueroa and colleagues, with an educational yvrose from [employer]. Review of Systems Const All systems reviewed & are unremarkable except as noted in HPI and below Card Denies chest pain at rest, Denies chest pain with activity, Denies edema, Denies irregular heart rhythm, Denies claudication, Denies dyspnea, Denies dyspnea on exertion, Denies orthopnea, Denies paroxysmal nocturnal dyspnea and Denies slow heart rate Resp Denies cough, Denies dyspnea and Denies dyspnea on exertion GI Denies abdominal pain, Denies change in bowel habits, Denies excessive flatus, Denies nausea and Denies vomiting Denies urinary incontinence, Denies urinary hesitancy and Denies urinary urgency Musc Denies abnormal gait, Denies atrophy, Denies deformity and Denies limited range of motion Skin/Breast Denies bleeding lesions, Denies changing lesions and Denies rash Neuro Denies abnormal gait, Denies behavioral changes and Denies lack of coordination Psych Denies behavioral changes Physical exam (Primary Care) Vital Signs: Last Vital Signs BP 126/80 07/29/24 08:22 BMI result Body Mass Index 33.5 BMI Assessment/Plan discussion: High BMI High, discussed plan: lifestyle, weight reduction, dietary and physical activity Tobacco/Smoking Status: Tobacco use Status Tobacco use date assessed 01/24/24 07/29/24 08:32 Patient Tobacco Use Status Never used Tobacco 07/29/24 08:32 e-Cigarette/Vaping Use Never Used 07/29/24 08:32 Thrive Assessment: Date of Thrive Assessment Date Thrive assessed 01/24/24 07/29/24 08:32 Resp Effort & Inspection: normal respiratory effort Auscultation: clear to auscultation bilaterally Cardio Jugular venous distension: no JVD Rate: regular rate Rhythm: regular rhythm Heart sounds: S1 normal heart sound present and S2 normal heart sound present Extrem General: Yes full ROM Office Procedures Flu Questionnaire Does the patient have a severe egg allergy?: No Immunizations Fluarix Triv [id number] (PF) 45 mcg (15 mcg x 3)/0.5 mL IM syringe Performing Provider: Norma Keane MD [facility] Documented (not given) by: EPHRAIM Merritt on 07/29/24 08:33 Reason Not Given: Patient Refused Coding Level of Care Code Est Pt Level 4 (14680) Complex EM visit Add On G2211 Diagnoses Mild major depression F32.0 Skin lesion L98.9 Sinus tachycardia R00.0 Chest pain on breathing R07.1 Chest pain type: chest pain on breathing Moderate persistent asthma without complication J45.40 Asthma severity: moderate Asthma persistence: persistent Asthma complication type: uncomplicated Migraines G43.009 Intractability: not intractable Migraine type: without aura Status migrainosus presence: without status migrainosus Time Spent (min) 21 Assessment & Plan Assessment & Plan (1) Mild major depression: Code(s): F32.0 - Major depressive disorder, single episode, mild Category: Medical (2) Skin lesion: Code(s): L98.9 - Disorder of the skin and subcutaneous tissue, unspecified Category: Medical (3) Sinus tachycardia: Code(s): R00.0 - Tachycardia, unspecified Category: Medical (4) Chest pain: Code(s): R07.9 - Chest pain, unspecified Category: Medical Qualifiers: Chest pain type: chest pain on breathing Qualified Code(s): R07.1 - Chest pain on breathing (5) Asthma: Code(s): J45.909 - Unspecified asthma, uncomplicated Category: Medical Qualifiers: Asthma severity: moderate Asthma persistence: persistent Asthma complication type: uncomplicated Qualified Code(s): J45.40 - Moderate persistent asthma, uncomplicated (6) Migraines: Code(s): G43.909 - Migraine, unspecified, not intractable, without status migrainosus Category: Medical Qualifiers: Intractability: not intractable Migraine type: without aura Status nida rainosus presence: without status migrainosus Qualified Code(s): G43.009 - Migraine without aura, not intractable, without status migrainosus Plan - Refer to Dermatology for skin lesions - Continue management of depression, ensuring it remains controlled. - Proceed with scheduled pulmonary evaluation to assess potential issues and obtain accurate data. - Discussed the need to maintain awareness of symptoms and attend follow-ups for pulmonary testing. Patient was informed and verbally consented to the use of an ambient scribe for clinic note documentation during this visit. I discussed comprehensive care addressing the patient's medication allergies, depression, and pulmonary concerns. We explored alternatives to medications causing adverse reactions. The patient should remain vigilant about any further side effects. We discussed her depression management, highlighting that it seems well-controlled currently. For pulmonary issues, we set plans for a follow-up test to have accurate and reliable results. I emphasized the importance of pursuing honest testing procedures and potential implications of inflated results. We discussed lifestyle factors, including non-use of substances. The patient agreed to follow through with the recommended course of action and monitoring. Orders: Orders Influenza [id number] Immunization Today Z23 - Encounter for immunization ECG 12 lead EKG Today R07.1 - Chest pain on breathing ECG holter monitor 24 hour Today R00.0 - Tachycardia, unspecified Referrals Dermatology Referral L98.9 - Disorder of the skin and subcutaneous tissue, unspecified Medications: Changed From topiramate 25 mg PO DAILY 30 tabs 2RF To topiramate 25 mg PO BEDTIME 30 tabs 2RF Refilled pzrfzcggzl-iavixpinqznri-znas 50-325-40 mg 1 tab PO DAILY PRN 25 tabs 0RF pain 30 days Patient Instructions: - Avoid Duloxetine, Gabapentin, and Sumatriptan due to known allergies. - Continue any existing strategies effectively managing depression. - Attend the scheduled pulmonary evaluation on the . - Monitor for any new or worsening symptoms. - Report any pulmonary or cardiac concerns to a healthcare provider promptly. - Avoid tobacco and alcohol to maintain current health status.
[2024-07-29 08:22] VITALS: BP 126/80; BMI 33.5
== END 2024-07-29 08:51 | disposition home or self-care (01) ==
PROVIDERS: PCP Internal Medicine; Visit Provider Internal Medicine
DX: F32.0 Major depressive disorder, single episode, mild (principal); L98.9 Disorder of the skin and subcutaneous tissue, unspecified; R00.0 Tachycardia, unspecified; R07.1 Chest pain on breathing; J45.40 Moderate persistent asthma, uncomplicated; G43.009 Migraine without aura, not intractable, without status migrainosus; Z23 Encounter for immunization

== ENCOUNTER → 2024-07-29 08:14 | Outpatient (BNVA) | payer OTHER, SELFPAY | PROVIDERS: PCP Internal Medicine; Visit Provider Internal Medicine | DX: F32.0 Major depressive disorder, single episode, mild (principal); J45.40 Moderate persistent asthma, uncomplicated; L98.9 Disorder of the skin and subcutaneous tissue, unspecified; R00.0 Tachycardia, unspecified; R07.1 Chest pain on breathing; G43.009 Migraine without aura, not intractable, without status migrainosus; Z28.21 Immunization not carried out because of patient refusal | CPT/HCPCS: 90471; 99212 ==

== ENCOUNTER 2024-08-01 15:19 | Outpatient (REF) | payer OTHER, SELFPAY ==
[2024-08-01 16:52] LABS: MANUAL DIFF FLAG NO
[2024-08-01 17:08] LABS: VBG Base Excess 4.1 mmol/L; VBG HCO3 31 mmol/L (22-26); VBG pCO2 57 mmHg; VBG pH 7.33 (7.32-7.43)
[2024-08-01 17:09] LABS: Venous Blood Gas Refer to POC result
[2024-08-01 17:09] LABS: VBG pO2 36 mmHg
[2024-08-01 17:25] LABS: Basophils Percent Auto 0.5 % (0-2); Eosinophils Absolute Auto 0.2 X10*3/uL (0.0-0.4); Eosinophils Percent Auto 2.3 % (0-4); Hematocrit 35.9 % (37.0-47.0); Hemoglobin 11.5 g/dl (12.0-16.0); Imm Gran Abs Auto 0.01 X10*3/uL (0.00-0.03); Imm Gran Pct Auto 0.1 % (0.0-0.4); Lymphocytes Absolute Auto 2.3 X10*3/uL (1.2-4.9); Lymphocytes Percent Auto 31.8 % (20-40); Mean Corpuscular Hemoglobin 25.7 pg (27.0-33.0); Mean Corpuscular Volume 80.1 fL (80.0-98.0); Mean Platelet Volume 8.2 fL (9.4-12.3); Monocytes Absolute Auto 0.5 X10*3/uL (0.1-1.2); Monocytes Percent Auto 6.4 % (2-11); Neutrophils Absolute Auto 4.3 x10*3/uL (2.0-8.3); Neutrophils Percent Auto 58.9 % (45-73); Platelet Count 360 X10*3/uL (160-400); Red Blood Count 4.48 X10*6/uL (4.20-5.50); Red Cell Distribution Width 13.5 % (11.0-16.0); White Blood Count 7.3 X10*3/uL (4.8-10.8)
[2024-08-01 17:48] LABS: D Dimer High Sensitivity < 150 NG/ML
[2024-08-01 17:58] LABS: Anion Gap 15 (12-20); Blood Urea Nitrogen 12 mg/dL (9-16); Calcium 9.4 mg/dL (8.4-10.2); Carbon Dioxide 27 mmol/L (22-29); Chloride 104 mmol/L (96-108); Estimated Glomerular Filt Rate > 60; Glucose Random 100 mg/dL (60-115); Potassium 3.6 mmol/L (3.3-5.1); Sodium 142 mmol/L (135-145)
[2024-08-01 18:08] LABS: Troponin-I High Sensitivity < 2.7 ng/L (<3.5-17.0)
[2024-08-02 19:24] LABS: Antibody to SS-A Antigen <1.0 NEG AI (<1.0 NEG); Antibody to SS-B Antigen <1.0 NEG AI (<1.0 NEG); Scleroderma 70 Antibody <1.0 NEG AI (<1.0 NEG)
[2024-08-06 13:23] LABS: Anti Nuclear Antibody Screen POSITIVE (NEGATIVE)
== END 2024-08-01 15:20 | disposition home or self-care (01) ==
LOC: HO.LAB 15:19
PROVIDERS: PCP Internal Medicine; Visit Provider Hospitalist
DX: R06.09 Other forms of dyspnea (principal); R07.1 Chest pain on breathing; J30.9 Allergic rhinitis, unspecified; J45.40 Moderate persistent asthma, uncomplicated; T78.40XD Allergy, unspecified, subsequent encounter; K21.9 Gastro-esophageal reflux disease without esophagitis
CPT/HCPCS: 36415; 80048; 82803; 84484; 85025; 85379; 86038; 86039; 86235; 99212

== ENCOUNTER 2024-08-01 15:19 | Outpatient (AMB) | payer OTHER, SELFPAY ==
--- NOTE | 2024-08-01 15:29 | MHC.OFFVIS ---
Vital Signs 08/01/24 15:30 Height 5 ft 3 in Weight 190 lb 11.198 oz BMI 33.8 BP 110/76 Blood Pressure Location Rt brachial Position Sitting Pulse 87 Pulse Source Pulse Oximeter Pulse Oximetry (%) 100 Oxygen Delivery Method Room Air Intake Visit Reasons: asthma Allergies duloxetine Adverse Reaction (Severe, Verified 08/01/24 15:32) Headache gabapentin Adverse Reaction (Intermediate, Verified 08/01/24 15:32) joint pain sumatriptan [SUMATRIPTAN] Adverse Reaction (Intermediate, Verified 08/01/24 15:32) Nausea, vomiting, HPI Comments Details: The patient is a 38-year-old woman with a known history of asthma. The patient has had multiple evaluations in the ER because of asthma exacerbations. She feels like asthma is not controlled. She feels like she needs to use her rescue inhaler on a daily basis. She only gets partial resolution when she uses inhalers. On further questioning she has not tried many maintenance inhalers at this time. In addition to that she has not had any allergy testing or pulmonary function study testing. Therefore, the patient will start maintenance therapy in addition to undergoing blood work and pulmonary function studies in the near future. 12/30/2022 the patient is here for pulmonary follow-up visit. The patient has been having her ups and Downs. Significant allergy symptoms during the spring. The Dupixent has been only partially helpful. We had referred her to allergy but she was given an appointment in May. Will go ahead and placed a referral to the actual doctor that we requested in the 1st place that had left the practice and hopefully she can be seen sooner. So therefore will not any change any of her immunotherapy as she is awaiting that visit with Allergy and immunology. In the meantime the patient did respond very well to Trelegy. She is not responding to Incruse nor budesonide. Therefore will go ahead and resend the Trelegy to the pharmacy as this was the 1 medication that helped her feel better. Hopefully we can get her on that at this time. In the meantime she is going to continue with allergy therapies and hopefully we can get her to Allergy soon. 06/30/2023 the patient is here for a pulmonary follow-up visit. The patient overall has been doing well. She continues on Dupixent injection. Although, she does not have any maintenance therapy. The patient was supposed to be on Trelegy but was not covered. Therefore she is been using her rescue inhaler on a daily basis. Will go ahead and send her a prescription for Symbicort that she can use twice a day. Hopefully with the Symbicort she will need to use her rescue inhaler. She will continue to use it Dupixent every 2 weeks because has been affecting beneficial. She also was found to have H pylori and she was placed on multiple medications for that making it very difficult with adverse effects. She is having significant reflux disease. She continues to try reflux diet. She is been on omeprazole 20 mg. will go ahead and increase the omeprazole to 40 mg to maximize the effect. She also follow-up with GI doctor. 11/16/2023 the patient is here for a pulmonary follow-up visit. Overall she is doing okay. She does continues to have frequent asthma symptoms with chest tightness and wheezing. She does use her rescue inhaler more than twice a week. She did respond well Dupixent. Then she lost her insurance and then she had to stop it. Now she has a regular insurance and will try to continue since it was affecting beneficial. She did have her allergy testing although she did have a reaction appeared to be delayed. Will go ahead and request blood work because is not clear based on her description of the allergy testing. She will follow-up with Allergy immunology in the near future. She does have a trip to [place] scheduled for the next week. I will make sure she can take some medicine with her in case she has worsening disease there. She continues to responding to the Symbicort. She also has a rescue inhaler and she will make sure to take a nebulizer with her for her travel. 05/23/2024 the patient is here for pulmonary follow-up visit. The patient has been struggling with her asthma symptoms. She has not been any better. She has been trying to be adherent to her therapy. Although she did gain a lot of medications at this time. She continues on the Dupixent injection. Does every 2 weeks. Although she takes him she is not sure how much they are helping. We did review her blood work from 12/02/2023 and her eosinophils were normal in the IgE also normal. Therefore, this is something we can consider coming off specially if she has not seen any improvement. She does continue on the Daliresp and does continue on the Symbicort inhaler. Her Symbicort has been very effective. Will go ahead and add a long-acting muscarinic antagonist see that provides relief. She is also wondering about budesonide. I can send the budesonide she can use it for now. However, the patient understands now that budesonide his steroid and by taking the Symbicort and the budesonide this could result in systemic manifestation the steroids. And she does not want that. Therefore will try to wean her off the budesonide once she is feeling better. The patient should have a repeat chest x-ray and also pulmonary function studies. Will continue to try a assess her asthma symptoms but we possibly could consider switching her Dupixent to test prior where we treated more of a nonallergic asthma such as neutrophilic predominant asthma which may be the issue with the patient at this time. 08/01/2024 the patient is here for a pulmonary follow-up visit. The patient has been struggling with her dyspnea on exertion. Moderate severity. He only minimal activity. She has started developing shortness of breath and coughing. She feels like her throat is closing. She continues on the Symbicort and she does find it helpful. She did get a prescription for Spiriva she has not been able to get at the pharmacy. I will resend it. It should be covered. And then once she can start that in the provide the additional support for bronchodilation. We did go for brief walking oximetry in the office. Just after few flights of stairs her heart rate was already in the 140s to 150s. The patient was visibly dyspneic. Her oxygen was normal. I did does not to her lungs once she was having hard time and she did not have any significant wheezing which is reassuring that is not exercise-induced asthma. Still in the differential. The patient had been scheduled for a stress echo in the past but she was not able to do it because she was having asthma that time. Will go ahead and reschedule her this time. The patient may have a component of pulmonary hypertension that we have to look into. She also has not chest discomfort so have her get some blood work including a D-dimer to see if we need to consider ruling out thromboembolic disease. The patient also has an appointment with Cardiology will be helpful. In the meantime will continue to consider maximizing her respiratory therapy. [facility] Medical History (Updated 08/01/24 @ 23:46 by José Antonio Rodriguez MD) Dyspnea Chest pain Allergies NORMA positive H. 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 Hypovitaminosis D Migraines Surgical History Hx of retained foreign body fully removed (11/23/17) History of tubal ligation History of section Family History Father CVD (cardiovascular disease) Mother Chronic mental illness Breast cancer Schizophrenia Mental health disorder Maternal Grandmother Hypertension Stroke Paternal Grandmother Breast cancer Paternal Aunt Breast cancer Paternal Aunt Cancer of unknown origin Family/Other Chronic mental illness Mental health disorder Social History Household Members: Family Housing: House Alcohol intake: never Patient Tobacco Use Status: Never used Tobacco e-Cigarette/Vaping Use: Never Used Second Hand Smoke Exposure: No service: No Current occupational status: employed Current occupational exposures/hazards: No Cognitive needs: No Hearing needs: No Vision needs: No Review of Systems Const Reports fatigue and Denies fever(s) Eyes Reports no additional complaints, Denies change in vision and Denies other visual disturbances Card Reports palpitations and Reports dyspnea on exertion Resp Denies chest congestion, Reports cough, Reports dyspnea on exertion and Reports wheezing GI Reports abdominal pain, Denies change in bowel habits, Denies excessive flatus, Reports dyspepsia, Reports heartburn, Denies nausea and Denies vomiting Denies urinary incontinence, Denies urinary hesitancy and Denies urinary urgency Endo Reports fatigue and Reports palpitations Aller/Immun Reports wheezing Physical Exam Vital Signs: Last Vital Signs Pulse 87 08/01/24 15:30 BP 110/76 08/01/24 15:30 Pulse Ox 100 08/01/24 15:30 Oxygen Delivery Method Room Air 08/01/24 15:30 BMI result Body Mass Index 33.8 Const General: alert Neck Neck: Yes normal visual inspection, Yes full ROM and Yes no lymphadenopathy Chest Chest palpation & inspection: normal inspection of the chest Resp Effort & Inspection: normal respiratory effort Auscultation: no wheezes and diminished lung sounds Cardio Rate: tachycardic Rhythm: regular rhythm Heart sounds: S1 normal heart sound present and S2 normal heart sound present GI Palpation (GI): Soft to palpation and nontender Auscultation: normal bowel sounds General: Yes no CVA tenderness Back/Spine/Pelvis Back: no CVA tenderness Skin General skin exam: rashes and/or lesions noted Assessment & Plan Assessment & Plan (1) Chronic allergic rhinitis: Code(s): J30.9 - Allergic rhinitis, unspecified Category: Medical (2) Asthma: Code(s): J45.909 - Unspecified asthma, uncomplicated Category: Medical Qualifiers: Asthma complication type: uncomplicated Asthma persistence: persistent Asthma severity: moderate Qualified Code(s): J45.40 - Moderate persistent asthma, uncomplicated (3) Allergies: Code(s): T78.40XA - Allergy, unspecified, initial encounter Category: Medical Qualifiers: Encounter type: subsequent encounter Qualified Code(s): T78.40XD - Allergy, unspecified, subsequent encounter (4) Asthma: Code(s): J45.909 - Unspecified asthma, uncomplicated Category: Medical Qualifiers: Asthma complication type: uncomplicated Asthma persistence: persistent Asthma severity: severe Qualified Code(s): J45.50 - Severe persistent asthma, uncomplicated (5) GERD (gastroesophageal reflux disease): Code(s): K21.9 - Gastro-esophageal reflux disease without esophagitis Category: Medical Qualifiers: Esophagitis presence: esophagitis presence not specified Qualified Code(s): K21.9 - Gastro-esophageal reflux disease without esophagitis (6) Dyspnea: Code(s): R06.00 - Dyspnea, unspecified Category: Medical Qualifiers: Dyspnea type: dyspnea on exertion Qualified Code(s): R06.09 - Other forms of dyspnea (7) Chest pain: Code(s): R07.9 - Chest pain, unspecified Category: Medical Qualifiers: Chest pain type: chest pain on breathing Qualified Code(s): R07.1 - Chest pain on breathing Plan continue Symbicort Add Spiriva Xopenex as needed due to increase tremors and palpitations continue Dupixent, consider switching to Tezspire continue Daliresp 500mcg reflux diet stress ECHO bloodwork Cardiology referral pending F/U 2 months Orders: Orders Complete Blood Count Auto Diff Today R06.00 - Dyspnea, unspecified, R07.1 - Chest pain on breathing Basic Metabolic Panel Today R06.00 - Dyspnea, unspecified, R07.1 - Chest pain on breathing Troponin-I High Sensitivity Today R06.00 - Dyspnea, unspecified, R07.1 - Chest pain on breathing NORMA Reflex Titer and Pattern Today R06.00 - Dyspnea, unspecified, R07.1 - Chest pain on breathing Sjogren's Antibodies Today R06.00 - Dyspnea, unspecified, R07.1 - Chest pain on breathing CA echo stress exercise Today R06.00 - Dyspnea, unspecified D Dimer High Sensitivity Today R06.00 - Dyspnea, unspecified, R07.1 - Chest pain on breathing Venous Blood Gas Today R06.00 - Dyspnea, unspecified, R07.1 - Chest pain on breathing Scleroderma 70 Antibody Today R06.00 - Dyspnea, unspecified, R07.1 - Chest pain on breathing Medications: New tiotropium bromide 2.5 mcg/actuation (Spiriva Respimat) 2 puffs inhalation DAILY 1 ea 11RF 30 days prednisone Take 2 tabs daily x 5 days, then 1 tablet daily x 5 days 20 mg PO DAILY 15 tabs 0RF 10 days tiotropium bromide 2.5 mcg/actuation (Spiriva Respimat) 2 puffs inhalation DAILY 1 ea 11RF 30 days Coding Level of Care Code Est Pt Level 4 (58752) Complex EM visit Add On G2211 Diagnoses Chronic allergic rhinitis J30.9 Moderate persistent asthma without complication J45.40 Asthma complication type: uncomplicated Asthma persistence: persistent Asthma severity: moderate Allergy, subsequent encounter T78.40XD Encounter type: subsequent encounter Gastroesophageal reflux disease, unspecified whether esophagitis present K21.9 Esophagitis presence: esophagitis presence not specified Dyspnea on exertion R06.09 Dyspnea type: dyspnea on exertion Chest pain on breathing R07.1 Chest pain type: chest pain on breathing Time Spent (min) 18
[2024-08-01 15:30] VITALS: BP 110/76; PULSE 87; O2SAT 100; BMI 33.8
== END 2024-08-01 16:10 | disposition home or self-care (01) ==
PROVIDERS: PCP Internal Medicine; Visit Provider Hospitalist
DX: J30.9 Allergic rhinitis, unspecified (principal); J45.40 Moderate persistent asthma, uncomplicated; T78.40XD Allergy, unspecified, subsequent encounter; K21.9 Gastro-esophageal reflux disease without esophagitis; R06.09 Other forms of dyspnea; R07.1 Chest pain on breathing; J45.50 Severe persistent asthma, uncomplicated
CPT/HCPCS: 99214; G2211

== ENCOUNTER → 2024-08-05 09:21 | Outpatient (REF) | payer OTHER, SELFPAY ==
--- NOTE | 2024-08-05 09:24 | ECG_ITS ---
Test Reason : SINUS TACHYCARDIA Blood Pressure : / mmHG Vent. Rate : 085 BPM Atrial Rate : 085 BPM P-R Int : 128 ms QRS Dur : 092 ms QT Int : 370 ms P-R-T Axes : 067 014 025 degrees QTc Int : 440 ms Poor data quality, interpretation may be adversely affected Normal sinus rhythm Normal ECG When compared with ECG of 09-NOV-2022 00:07, Nonspecific T wave abnormality, improved in Inferior leads Nonspecific T wave abnormality no longer evident in Lateral leads Referred By: Norma Keane Electronically Signed By:Carter Woodson
== END ==
LOC: HO.CARD 09:21
PROVIDERS: Visit Provider Internal Medicine
DX: R00.0 Tachycardia, unspecified (principal); R07.1 Chest pain on breathing
CPT/HCPCS: 93005; 93225

== ENCOUNTER → 2024-08-05 09:24 | Outpatient (BNV) | payer OTHER, SELFPAY | PROVIDERS: Visit Provider Internal Medicine Cardiovascular Disease | DX: R00.0 Tachycardia, unspecified (principal) | CPT/HCPCS: 93010 ==

== ENCOUNTER 2024-08-22 10:48 | Outpatient (REF) | payer OTHER, SELFPAY ==
[2024-08-22 11:37] LABS: Hematocrit 39.9 % (37.0-47.0); Hemoglobin 12.8 g/dl (12.0-16.0); Mean Corpuscular HGB Conc 32.1 g/dl (31.0-35.0); Mean Corpuscular Hemoglobin 25.4 pg (27.0-33.0); Mean Corpuscular Volume 79.3 fL (80.0-98.0); Mean Platelet Volume 8.3 fL (9.4-12.3); Platelet Count 329 X10*3/uL (160-400); Red Blood Count 5.03 X10*6/uL (4.20-5.50); Red Cell Distribution Width 13.9 % (11.0-16.0); White Blood Count 5.1 X10*3/uL (4.8-10.8)
[2024-08-22 12:40] LABS: Estimated Average Glucose 123 mg/dL; Hemoglobin A1C 133.1754 umol/L; Hemoglobin A1c % 5.9 % (<6.0); Total Hemoglobin (HGBA1C) 3264.0951 umol/L
[2024-08-22 13:18] LABS: Alanine Aminotransferase 17 U/L (0-31); Albumin Level 4.1 g/dL (3.5-5.0); Alkaline Phosphatase 82 U/L (39-117); Amylase 54 U/L (28-100); Anion Gap 10 (12-20); Aspartate Amino Transferase 24 U/L (5-31); Bilirubin Direct 0.2 mg/dL (0.0-0.5); Bilirubin Total 0.6 mg/dL (0.0-1.0); Blood Urea Nitrogen 9 mg/dL (9-16); Calcium 8.8 mg/dL (8.4-10.2); Carbon Dioxide 27 mmol/L (22-29); Chloride 105 mmol/L (96-108); Cholesterol 149 mg/dL (<200); Estimated Glomerular Filt Rate > 60; Free T4 (Free Thyroxine) 0.94 ng/dL (0.71-1.85); Glucose Random 106 mg/dL (60-115); HDL Cholesterol 42 mg/dL (>40); LDL Cholesterol Calculated 95 mg/dL (<100); Lipase 23 U/L (8-78); Potassium 3.7 mmol/L (3.3-5.1); Sodium 138 mmol/L (135-145); Thyroid Stimulating Hormone 1.08 uIU/mL (0.32-4.0); Total Protein 8.1 g/dL (6.5-8.0); Triglycerides 60 mg/dL (<150); Vitamin D 25-OH Total 44.6 ng/mL (>30)
[2024-08-22 14:22] LABS: H Pylori Breath Test Positive (Negative)
== END 2024-08-22 10:49 | disposition home or self-care (01) ==
LOC: HO.HHCL 10:48
PROVIDERS: Visit Provider Family Medicine
DX: R10.13 Epigastric pain (principal)
CPT/HCPCS: 36415; 80048; 80061; 80076; 82150; 82306; 83013; 83036; 83690; 84439; 84443; 85027

== ENCOUNTER 2024-09-27 14:13 | Outpatient (AMB) | payer OTHER, SELFPAY ==
--- OUTSIDE RECORDS SUMMARY | 2024-09-27 14:15 | XMS_ITS | Encounter Summary ---
Author Organization [facility] Address [address] [place] [address] [address] [place] [address] Care Team Providers Care Strip Stamp Straightener Name Role Phone Unavailable Primary Care Provider Unavailabl e Reason for Visit * Reason Onset Date Comments Results 09/23/2024 Encounter Details Date Type Department Care Team (Late st Contact Info) Description 09/23/2024 Telephone [facility] [address] [place], [place] [phone] Nadia Brower RN [address] [place] [address] Results Social History Tobacco Use Types Packs/Day Years Used Date Smoking Tobacco: Never Assessed Comments Unknown Sex and Gender Information Value Date Recorded Sex Assigned at Female 06/13/2022 10:21 AM EDT Legal Sex Female 10:21 AM EDT Gender Identity Female 06/13/2022 10:21 AM EDT Sexual Orientation Straight 06/13/2022 10 :21 AM EDT documented as of this encounter Miscellaneous Notes * Telephone Encounter - Nadia Brower RN - 09/25/2024 8:29 AM EST TC x3 placed to patient [phone] in regards to below message however number is OOS. TC x3 placed to [phone] via [employer] interpreters ([facility] # [id number]) to inform of below message. Patient verbalized understanding and is aware abx regimen will be sent to the pharmacy for the patient to take themedication exactly as prescribed without skipping any doses. Patient did not have any further questions/concerns. Patient to f/u PRN. ----- Message from Miladys Vides DO sent at 09/22/2024 4:54 PM EST ----- Please advise pt that her H. Pylori test was positive and she needs treatment with abx regimen. Thank you! ----- Message ----- From: Carmen, Lab Results In Sent: 08/22/2024 11:38 AM EST To: Miladys Vides DO * Telephone Encounter - Nadia Brower RN - 09/24/2024 2:59 PM EST TC x2 placed to patient [phone] in regards to below message however number is OOS. TC placed to [phone] however no answer, RN left requesting CB to red team nurses. RN will re-attempt Christina. ----- Message from Miladys Vides DO sent at 09/22/2024 4:54 PM EST ----- Please advise pt that her H. Pylori test was positive and she needs treatment with abx regimen. Thank you! ----- Message ----- From: Interface, Lab Results In Sent: 08/22/2024 11:38 AM EST To: Miladys Vides DO * Telephone Encounter - Nadia Brower RN - 09/23/2024 2:14 PM EST TC placed to patient [phone] in regards to below message however number is OOS. TC placed to [phone] however no answer, RN left requesting CB to red team nurses. RN will re-attempt in AM. ----- Message from Miladys Vides DO sent at 09/22/2024 4:54 PM EST ----- Please advise pt that her H. Pylori test was positive and she needs treatment with abx regimen. Thank you! ----- Message ----- From: Interface, Lab Results In Sent: 08/22/2024 11:38 AM EST To: Miladys Vides DO documented in this encounter Plan of Treatment Not on file documented as of this encounter Visit Diagnoses Not on filedocumented in this encounter
--- OUTSIDE RECORDS SUMMARY | 2024-09-27 14:15 | XMS_ITS | Clinical Summary ---
Author Organization [employer] Address [address] [place] [address] [address] [place] [address] Care Team Providers Care Selling Underwriter Name Role Phone Unavailable Primary Care Provider Unavailabl e Allergies Active Allergy Reactions Criticality Noted Date Comments Gabapentin Dizziness,Vomiting 08/22/2024 Sumatriptan Dizziness,Vomiting 08/22/2024 Medications Ventolin HFA 108 (90 Base) MCG/ACT inhaler TAKE 2 PUFFS BY MOUTH EVERY 6 HOURS NEEDED FOR SHORTNESS OF BREATH OR WHEEZING FOR 30 DAYS 4 Active Symbicort 160-4.5 MCG/ACT inhaler INHALE 2 PUFFS BY MOUTH 2 TIMES A DAY FOR 30 DAYS 4 Active buPROPion XL (Wellbutrin XL) 150 MG 24 hr tablet Take 150 mg by mouth in the morning. 4 Active butalbital-acet aminophen-caffe ine 50-325-40 MG tablet TAKE 1 TAB ORALLY DAILY NEEDED FOR PAIN FOR 30 DAYS 4 Active cetirizine (ZyrTEC) 10 MG tablet Take 1 tablet by mouth Once per day. 4 Active cholecalciferol VITAMIN D (Vitamin D-3) 50 MCG (2000 UT) capsule Take 1 capsule by mouth Once per day. 4 Active Dupixent 300 MG/2ML solution prefilled syringe injection 4 Active ferrous sulfate 325 (65 Fe) MG tablet Take 1 tablet by mouth Once per day. 4 Active montelukast (Singulair) 10 MG tablet Take 10 mg by mouth at bedtime. 4 Active topiramate (Topamax) 25 MG tablet Take 25 mg by mouth at bedtime. 4 Active Spiriva Respimat 2.5 MCG/ACT inhaler inhale 2 puffs by mouth once daily 4 Active omeprazole (PriLOSEC) [address] capsule Take 1 capsule (40 mg) by mouth before breakfast and before evening meal. 60 capsule 3 5 08/22/19 26 Active famotidine (Pepcid) 40 MG tablet Take 1 tablet (40 mg) by mouth at bedtime. 30 tablet 3 5 08/22/19 26 Active acetaminophen (Tylenol 8 Hour) 650 MG ER tablet Take 1 tablet (650 mg) by mouth every 8 (eight) hours if needed for mild pain. Do not crush, chew, or split. 40 tablet 1 5 09/21/19 25 ondansetron (Zofran) 4 MG tablet Take 1 tablet (4 mg) by mouth every 8 (eight) hours if needed for nausea or vomiting for up to 7 days. 20 tablet 5 08/29/19 25 calcium carbonate EX (Tums E-X) 750 MG chewable tablet Chew 2 tablets (1,500 mg) if needed in the morning, at noon, and at bedtime for indigestion or heartburn for up to 14 days. 30 tablet 1 5 09/05/19 25 Active Problems Problem Noted Date Diagnosed Date Chronic allergic rhinitis 08/22/2024 History of COVID-19 08/22/2024 History of Helicobacter pylori infection 025 Anemia 08/22/2024 Impaired fasting glucose 12/27/2013 Obesity 06/20/2013 Chronic gastroesophageal reflux disease 06/20/20 13 Moderate persistent asthma 08/17/2012 Herpes simplex 09/26/2011 Depression 09/26/2011 Anxiety 09/26/2011 Chronic migraine 07/26/2011 Posttraumatic stress disorder 06/28/2010 Encounters Date Type Department Care Team Description 09/23/2024 Telephone [facility] MEDICINE [address] [place] [address] Nadia Brower, RN Results 08/22/2024 10:00 AM EST Office Visit [facility] [address] [place] [address] Mialdys Vides DO Epigastric pain (Primary Dx); Elevated BP without diagnosis of hypertension 08/22/2024 Telephone [facility] MEDICINE [address] [place] [address] Trevon Mark MD New patient appt. from Last 3 Months Social History Tobacco Use Types Packs/Day Years Used Date Smoking Tobacco: Never Assessed Comments Unknown Sex and Gender Information Value Date Recorded Sex Assigned at Female 06/13/2022 10:21 AM EDT Legal Sex Female 10:21 AM EDT Gender Identity Female 06/13/2022 10:21 AM EDT Sexual Orientation Straight 06/13/2022 10 :21 AM EDT Last Filed Vital Signs Vital Sign Reading Time Taken Comments Blood Pressure 144/89 08/22/2024 9:48 AM EST Pulse 93 08/22/2024 9:48 AM EST Temperature 36.3 ??C (97.4 ??F) 08/22/2024 9:48 AM ES T Respiratory Rate 17 08/22/2024 9:48 AM EST Oxygen Saturation 100% 08/22/2024 9:48 AM EST Inhaled Oxygen Concentration - - Weight 85.8 kg (189 lb 3.2 oz) 08/22/2024 9:48 A M EST Height 152.4 cm (5') 08/22/2024 9:48 AM EST Body Mass Index 36.95 08/22/2024 9:48 AM EST Plan of Treatment Health Maintenance Due Date Last Done Comments Depression Screening 1983 HIV Screening 1983 SDOH Screening 1983 Alcohol/Substance Use Screening 1995 Tobacco Screening 1995 Family Planning (PISQ) 1998 Hepatitis C Screening 2001 Hepatitis B Vaccines (1 of 3 - 19+ 3-dose series) 2002 Pneumococcal Vaccine: Pediatrics (0 to 5 Years) and At-Risk Patients (6 to 49) Years) (1 of 2 - PCV) 2002 Pap Smear 2004 Cervical Cancer Screening 2013 HPV/Cotest 2013 Mammogram 2023 COVID-19 Vaccine ( season) 2024 11/23/2021, 12/14/2020, 11/16/2020 Influenza Vaccine (#1) 2024 3, 07/29/2022, 06/07/2018, Additional history exists Diabetes: Hemoglobin A1C 08/22/2025 08/22/2024 DTaP/Tdap/Td Vaccines (4 - Td or Tdap) 12/04/2026 12/04/2016, 12/04/2016, 09/07/2009 Lipid Panel 08/22/2029 08/22/2024 Zoster Vaccines (1 of 2) 2033 RSV Patients and Patients Aged 60 years or older (1 - 1-dose 75+ series) 2058 HIB Vaccines Aged Out No longer eligi ble based on patient's age to complete this topic HPV Vaccines Aged Out No longer eligi ble based on patient's age to complete this topic Hepatitis A Vaccines Aged Out No long er eligible based on patient's age to complete this topic IPV Vaccines Aged Out No longer eligi ble based on patient's age to complete this topic Meningococcal Vaccine Aged Out No ramila michaelle eligible based on patient's age to complete this topic RSV under 20 months Aged Out No longe r eligible based on patient's age to complete this topic Rotavirus Vaccines Aged Out No longer eligible based on patient's age to complete this topic Procedures Procedure Name Priority Date/Time Associated Diagnosis Comments LIPASE Routine 08/22/2024 10:50 AM EST Epigastric pain AMYLASE Routine 08/22/2024 10:50 AM EST Epigastric pain BASIC METABOLIC PANEL Routine 08/22/2024 10:50 AM EST Epigastric pain CBC Routine 08/22/2024 10:50 AM EST Epigastric pain HEMOGLOBIN A1C Routine 08/22/2024 10:50 AM EST Epigastric pain HEPATIC FUNCTION PANEL Routine 08/22/2024 10:50 AM EST Epigastric pain VITAMIN D,25-OH,TOTAL,IA Routine 08/22/2024 10:50 AM EST Epigastric pain TSH Routine 08/22/2024 10:50 AM EST Epigastric pain LIPID PANEL, STANDARD Routine 08/22/2024 10:50 AM EST Epigastric pain T4, FREE Routine 08/22/2024 10:50 AM EST Epigastric pain HELICOBACTER PYLORI, UREA BREATH TEST Routine 08/22/2024 10:25 AM EST Epigastric pain from Last 3 Months Results * Vitamin D, 25-Hydroxy, Total, Immunoassay (08/22/2024 10:50 AM EST) Vitamin D 25-OH Total 44.6 >30 ng/mL [facility] Comment:Health Based Referen ce Values*< 20 ng/mL [id number] ng/mL Insufficient> 30 ng/mL Sufficient*Rachelle VERONICA. N Engl J Med. 2007;357:266-280Care must be taken in interpreting Vitamin D results fromdifferent laboratories and methodologies. Published datademonstrated that results from patients undergoinghemodialysis may show a negative bias when tested withvarious automated 25-OH vitamin D assays when compared toLC-MS/MS.When testing samples from patients whose predominant form ofVitamin D is Vitamin D2, such as patients receiving VitaminD2 supplementation, results that are subtherapeutic shouldbe confirmed with another method such as LC-MS/MS. Blood Venous blood specimen / Unknown 08/22/2024 10:50 AM EST 08/22/2024 11:36 AM EST us Miladys Vides DO LAB BLOOD ORDERABLES Final R esult [facility] [address] [place] [address] [phone] * (ABNORMAL) CBC (08/22/2024 10:50 AM EST) White Blood Count 5.1 4.8 - 10.8 X10*3/uL [facility] Red Blood Count 5.03 4.20 - 5.50 X10*6/uL [facility] Hemoglobin 12.8 12.0 - 16.0 g/dl [facility] Hematocrit 39.9 37.0 - 47.0 % [facility] Mean Corpuscular Volume 79.3(L) 80.0 - 98.0 fL [facility] Mean Corpuscular Hemoglobin 25.4(L) 27.0 - 33.0 pg [facility] Mean Corpuscular HGB Conc 32.1 31.0 - 35.0 g/dl [facility] Red Cell Distribution Width 13.9 11.0 - 16.0 % [facility] Platelet Count 329 160 - 400 X10*3/uL [facility] Mean Platelet Volume 8.3(L) 9.4 - 12.3 fL [facility] NRBC Pct Auto 0.0 0.0 - 0.2 /100WBC [facility] NRBC Abs Auto 0.000 0.0 - 0.012 X10*3/uL [facility] Blood Venous blood specimen / Unknown 08/22/2024 10:50 AM EST 08/22/2024 11:32 AM EST Miladys Vides DO LAB BLOOD ORDERABLES Final R esult Performing Organization Address City/[facility]/ZIP Co de Phone Number [facility] [address] [place] [phone] * TSH (08/22/2024 10:50 AM EST) Thyroid Stimulating Hormone 1.08 0.32 - 4.0 uIU/mL [facility] Comment:TSH 3rd Generation ( [facility] [facility]) Blood Venous blood specimen / Unknown 08/22/2024 10:50 AM EST 08/22/2024 11:36 AM EST Miladys Vides DO LAB BLOOD ORDERABLES Final R esult Performing Organization Address City/[facility]/ZIP Co de Phone Number [facility] [address] [place] [phone] * T4, Free (08/22/2024 10:50 AM EST) Free T4 (Free Thyroxine) 0.94 0.71 - 1.85 ng/dL [facility] Blood Venous blood specimen / Unknown 08/22/2024 10:50 AM EST 08/22/2024 11:36 AM EST Miladys Canalesdaysimin DO LAB BLOOD ORDERABLES Final R esult Performing Organization Address City/[facility]/ZIP Co de Phone Number [facility] [address] [place] [phone] * Lipase (08/22/2024 10:50 AM EST) Lipase 23 8 - 78 U/L [facility] Blood Venous blood specimen / Unknown 08/22/2024 10:50 AM EST 08/22/2024 11:36 AM EST Miladys Canalesguillermina DO LAB BLOOD ORDERABLES Final R esult Performing Organization Address City/[facility] Co de Phone Number [facility] [address] [place] [phone] * Hemoglobin A1c (08/22/2024 10:50 AM EST) Hemoglobin A1c 5.9 <6.0 % [facility] Comment:Hemoglobin A1C Refer ence Range Adults: 4.8 - 6.0 % Non diabetic: < 6.0 % Goal: < 7.0 %Additional Action Suggested: > 8.0 %Note: Hemoglobin A1c results are invalid for patients with abnormal amounts of HbF. Blood transfusions may impact the HbA1c concentration in the patient sample. Estimated Average Glucose 123 mg/dL [facility] Comment:eAG = Estimated ave rage glucose which is %A1C expressed asaverage glucose, using the formula of the B2R-DkhniqbQlvmrlj Glucose study (ADAG), Diabetes Care, Vol.31,#8,2007 Blood Venous blood specimen / Unknown 08/22/2024 10:50 AM EST 08/22/2024 11:32 AM EST us Miladys Vides DO LAB BLOOD ORDERABLES Final R esult Performing Organization Address City/[facility] Co de Phone Number [facility] [address] [place] [phone] * Amylase (08/22/2024 10:50 AM EST) Amylase 54 28 - 100 U/L [facility] Blood Venous blood specimen / Unknown 08/22/2024 10:50 AM EST 08/22/2024 11:36 AM EST us Miladys Vides DO LAB BLOOD ORDERABLES Final R esult Performing Organization Address [facility] Co de Phone Number [facility] [address] [place] [phone] * (ABNORMAL) Hepatic Function Panel (08/22/2024 10:50 AM EST) Bilirubin, Total 0.6 0.0 - 1.0 mg/dL [facility] Bilirubin, Direct 0.2 0.0 - 0.5 mg/dL [facility] Aspartate Amino Transferase 24 5 - 31 U/L [facility] Alanine Aminotransferase 17 0 - 31 U/L [facility] Total Protein 8.1(H) 6.5 - 8.0 g/dL [facility] Albumin Level 4.1 3.5 - 5.0 g/dL [facility] Alkaline Phosphatase 82 39 - 117 U/L [facility] Blood Venous blood specimen / Unknown 08/22/2024 10:50 AM EST 08/22/2024 11:36 AM EST Miladys Vides DO LAB BLOOD ORDERABLES Final R esult Performing Organization Address City/[facility] Co de Phone Number [facility] [address] [place] [phone] * Lipid Panel, Standard (08/22/2024 10:50 AM EST) Triglycerides 60 <150 mg/dL [facility] Comment:Desirable Triglyceri de: less than 150 mg/dLBorderline High Triglyceride 150-199 mg/dLHigh Triglyceride: 200-499 mg/dLVery High Triglyceride: greater than or equal to 5OO mg/dL Cholesterol 149 <200 mg/dL [facility] Comment:Desirable Cholestero l: less than 200 mg/dLBorderline High Cholesterol: 200-239 mg/dLHigh Cholesterol: greater than 239 mg/dL LDL Cholesterol Calculated 95 <100 mg/dL [facility] Comment:Desirable LDL: less than 100 mg/dLNear Optimal/Above Optimal LDL: 110- 129 mg/dLBorderline High LDL: 130-159 mg/dLHigh LDL: 160-189 mg/dLVery High LDL: greater than or equal to 190 mg/dL HDL Cholesterol 42 >40 mg/dL [facility] Comment:Desirable HDL: great er than 40 mg/dL Note: This HDL assay may give artificially low results in patients with liver disease. Blood Venous blood specimen / Unknown 08/22/2024 10:50 AM EST 08/22/2024 11:36 AM EST us Miladys Vides DO LAB BLOOD ORDERABLES Final R esult [facility] [address] [place] [phone] * (ABNORMAL) Basic Metabolic Panel (08/22/2024 10:50 AM EST) Sodium 138 135 - 145 mmol/L [facility] Potassium 3.7 3.3 - 5.1 mmol/L [facility] Chloride 105 96 - 108 mmol/L [facility] Carbon Dioxide 27 22 - 29 mmol/L [facility] Anion Gap 10(L) 12 - 20 [facility] Urea Nitrogen (BUN) 9 9 - 16 mg/dL [facility] Creatinine, Serum 0.68 0.5 - 1.4 mg/dL [facility] Estimated Glomerular Filt Rate >60 [facility] Comment:Chronic Kidney Disea se: Estimated GFR < 60 mL/min/[id number] Kidney Disease: Estimated GFR < 15 mL/min/1.73m2 Glucose 106 60 - 115 mg/dL [facility] Calcium 8.8 8.4 - 10.2 mg/dL [facility] Blood Venous blood specimen / Unknown 08/22/2024 10:50 AM EST 08/22/2024 11:36 AM EST Miladys Vides DO LAB BLOOD ORDERABLES Final R esult Performing Organization Address [facility] Co de Phone Number [facility] [address] [place] [phone] * Helicobacter pylori, Urea Breath Test (08/22/2024 10:25 AM EST) H. pylori Breath Test Positive Negative [facility] Comment:Antimicrobials, prot on pump inhibitors and bismuthpreparations are known to suppress H. pylori. Ingestingthese medications within two weeks prior to performing thebreath test may produce negative test results. A positiveresult is still clinically valid. Breath Oral cavity structure / Unknown 08/22/2024 10:25 AM EST 08/22/2024 1:41 PM EST us Miladys Vides DO LAB BLOOD ORDERABLES Final R esult Performing Organization Address [facility]/ZIP Co de Phone Number [facility] [address] [place] [address] [phone] from Last 3 Months Insurance [facility] FULL
[2024-09-27 14:25] VITALS: BP 120/84; PULSE 90; O2SAT 100; BMI 33.4
--- NOTE | 2024-09-27 14:25 | MHC.OFFVIS ---
Vital Signs 09/27/24 14:25 Height 5 ft 3 in Weight 188 lb 7.924 oz BMI 33.4 BP 120/84 Blood Pressure Location Rt brachial Position Sitting Pulse 90 Pulse Source Pulse Oximeter Pulse Oximetry (%) 100 Oxygen Delivery Method Room Air Intake Visit Reasons: asthma Allergies duloxetine Adverse Reaction (Severe, Verified 09/27/24 14:28) Headache gabapentin Adverse Reaction (Intermediate, Verified 09/27/24 14:28) joint pain sumatriptan [SUMATRIPTAN] Adverse Reaction (Intermediate, Verified 09/27/24 14:28) Nausea, vomiting, HPI Comments Details: The patient is a 39-year-old woman with a known history of asthma. The patient has had multiple evaluations in the ER because of asthma exacerbations. She feels like asthma is not controlled. She feels like she needs to use her rescue inhaler on a daily basis. She only gets partial resolution when she uses inhalers. On further questioning she has not tried many maintenance inhalers at this time. In addition to that she has not had any allergy testing or pulmonary function study testing. Therefore, the patient will start maintenance therapy in addition to undergoing blood work and pulmonary function studies in the near future. 12/30/2022 the patient is here for pulmonary follow-up visit. The patient has been having her ups and Downs. Significant allergy symptoms during the spring. The Dupixent has been only partially helpful. We had referred her to allergy but she was given an appointment in May. Will go ahead and placed a referral to the actual doctor that we requested in the 1st place that had left the practice and hopefully she can be seen sooner. So therefore will not any change any of her immunotherapy as she is awaiting that visit with Allergy and immunology. In the meantime the patient did respond very well to Trelegy. She is not responding to Incruse nor budesonide. Therefore will go ahead and resend the Trelegy to the pharmacy as this was the 1 medication that helped her feel better. Hopefully we can get her on that at this time. In the meantime she is going to continue with allergy therapies and hopefully we can get her to Allergy soon. 06/30/2023 the patient is here for a pulmonary follow-up visit. The patient overall has been doing well. She continues on Dupixent injection. Although, she does not have any maintenance therapy. The patient was supposed to be on Trelegy but was not covered. Therefore she is been using her rescue inhaler on a daily basis. Will go ahead and send her a prescription for Symbicort that she can use twice a day. Hopefully with the Symbicort she will need to use her rescue inhaler. She will continue to use it Dupixent every 2 weeks because has been affecting beneficial. She also was found to have H pylori and she was placed on multiple medications for that making it very difficult with adverse effects. She is having significant reflux disease. She continues to try reflux diet. She is been on omeprazole 20 mg. will go ahead and increase the omeprazole to 40 mg to maximize the effect. She also follow-up with GI doctor. 11/16/2023 the patient is here for a pulmonary follow-up visit. Overall she is doing okay. She does continues to have frequent asthma symptoms with chest tightness and wheezing. She does use her rescue inhaler more than twice a week. She did respond well Dupixent. Then she lost her insurance and then she had to stop it. Now she has a regular insurance and will try to continue since it was affecting beneficial. She did have her allergy testing although she did have a reaction appeared to be delayed. Will go ahead and request blood work because is not clear based on her description of the allergy testing. She will follow-up with Allergy immunology in the near future. She does have a trip to [place] scheduled for the next week. I will make sure she can take some medicine with her in case she has worsening disease there. She continues to responding to the Symbicort. She also has a rescue inhaler and she will make sure to take a nebulizer with her for her travel. 05/23/2024 the patient is here for pulmonary follow-up visit. The patient has been struggling with her asthma symptoms. She has not been any better. She has been trying to be adherent to her therapy. Although she did gain a lot of medications at this time. She continues on the Dupixent injection. Does every 2 weeks. Although she takes him she is not sure how much they are helping. We did review her blood work from 12/02/2023 and her eosinophils were normal in the IgE also normal. Therefore, this is something we can consider coming off specially if she has not seen any improvement. She does continue on the Daliresp and does continue on the Symbicort inhaler. Her Symbicort has been very effective. Will go ahead and add a long-acting muscarinic antagonist see that provides relief. She is also wondering about budesonide. I can send the budesonide she can use it for now. However, the patient understands now that budesonide his steroid and by taking the Symbicort and the budesonide this could result in systemic manifestation the steroids. And she does not want that. Therefore will try to wean her off the budesonide once she is feeling better. The patient should have a repeat chest x-ray and also pulmonary function studies. Will continue to try a assess her asthma symptoms but we possibly could consider switching her Dupixent to test prior where we treated more of a nonallergic asthma such as neutrophilic predominant asthma which may be the issue with the patient at this time. 08/01/2024 the patient is here for a pulmonary follow-up visit. The patient has been struggling with her dyspnea on exertion. Moderate severity. He only minimal activity. She has started developing shortness of breath and coughing. She feels like her throat is closing. She continues on the Symbicort and she does find it helpful. She did get a prescription for Spiriva she has not been able to get at the pharmacy. I will resend it. It should be covered. And then once she can start that in the provide the additional support for bronchodilation. We did go for brief walking oximetry in the office. Just after few flights of stairs her heart rate was already in the 140s to 150s. The patient was visibly dyspneic. Her oxygen was normal. I did does not to her lungs once she was having hard time and she did not have any significant wheezing which is reassuring that is not exercise-induced asthma. Still in the differential. The patient had been scheduled for a stress echo in the past but she was not able to do it because she was having asthma that time. Will go ahead and reschedule her this time. The patient may have a component of pulmonary hypertension that we have to look into. She also has not chest discomfort so have her get some blood work including a D-dimer to see if we need to consider ruling out thromboembolic disease. The patient also has an appointment with Cardiology will be helpful. In the meantime will continue to consider maximizing her respiratory therapy. 09/27/2024 the patient is here for a pulmonary follow-up visit. He still complaining of dyspnea on exertion. Some chest tightness as well. Heart rate had been significantly elevated. She did have a Holter monitor although we do not have the results just yet. She is also scheduled for stress test. She will also follow-up with Cardiology. From a pulmonary standpoint she continues to use her inhalers although she did change insurance now some her inhalers on a covered. I believe she should be on Symbicort and I believe that is covered. Will go ahead and send Spiriva. She needs to have her short-acting beta agonist approved to the pharmacy so therefore I will send prescriptions. She has not gotten Daliresp. So therefore this point she is taking it will hold off specially since she is taking a lot of medications. Try to simplify her respiratory regimen. She does have daytime drowsiness. She does wake short of breath therefore will go ahead and request a sleep study. But since she did have a blood gas demonstrating elevations in her CO2 demonstrating chronic hypercarbic respiratory failure will go ahead and request an in-lab sleep study for this reason. [facility] Medical History (Updated 09/27/24 @ 14:41 by José Antonio Rodriguez MD) Chronic hypercapnic respiratory failure JO (obstructive sleep apnea) Dyspnea Chest pain Allergies NORMA positive H. 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 Hypovitaminosis D Migraines Surgical History Hx of retained foreign body fully removed (11/23/17) History of tubal ligation History of section Family History Father CVD (cardiovascular disease) Mother Chronic mental illness Breast cancer Schizophrenia Mental health disorder Maternal Grandmother Hypertension Stroke Paternal Grandmother Breast cancer Paternal Aunt Breast cancer Paternal Aunt Cancer of unknown origin Family/Other Chronic mental illness Mental health disorder Social History Household Members: Family Housing: House Alcohol intake: never Patient Tobacco Use Status: Never used Tobacco e-Cigarette/Vaping Use: Never Used Second Hand Smoke Exposure: No service: No Current occupational status: employed Current occupational exposures/hazards: No Cognitive needs: No Hearing needs: No Vision needs: No Review of Systems Const Reports fatigue and Denies fever(s) Eyes Reports no additional complaints, Denies change in vision and Denies other visual disturbances Card Reports palpitations and Reports dyspnea on exertion Resp Denies chest congestion, Reports cough, Reports dyspnea on exertion and Reports wheezing GI Reports abdominal pain, Denies change in bowel habits, Denies excessive flatus, Reports dyspepsia, Reports heartburn, Denies nausea and Denies vomiting Denies urinary incontinence, Denies urinary hesitancy and Denies urinary urgency Endo Reports fatigue and Reports palpitations Aller/Immun Reports wheezing Physical Exam Vital Signs: Last Vital Signs Pulse 90 09/27/24 14:25 BP 120/84 09/27/24 14:25 Pulse Ox 100 09/27/24 14:25 Oxygen Delivery Method Room Air 09/27/24 14:25 BMI result Body Mass Index 33.4 Const General: alert Neck Neck: Yes normal visual inspection, Yes full ROM and Yes no lymphadenopathy Chest Chest palpation & inspection: normal inspection of the chest Resp Effort & Inspection: normal respiratory effort Auscultation: no wheezes and diminished lung sounds Cardio Rate: tachycardic Rhythm: regular rhythm Heart sounds: S1 normal heart sound present and S2 normal heart sound present GI Palpation (GI): Soft to palpation and nontender Auscultation: normal bowel sounds General: Yes no CVA tenderness Back/Spine/Pelvis Back: no CVA tenderness Skin General skin exam: rashes and/or lesions noted Assessment & Plan Assessment & Plan (1) Chronic allergic rhinitis: Code(s): J30.9 - Allergic rhinitis, unspecified Category: Medical (2) Asthma: Code(s): J45.909 - Unspecified asthma, uncomplicated Category: Medical Qualifiers: Asthma complication type: uncomplicated Asthma persistence: persistent Asthma severity: moderate Qualified Code(s): J45.40 - Moderate persistent asthma, uncomplicated (3) Allergies: Code(s): T78.40XA - Allergy, unspecified, initial encounter Category: Medical Qualifiers: Encounter type: subsequent encounter Qualified Code(s): T78.40XD - Allergy, unspecified, subsequent encounter (4) Asthma: Code(s): J45.909 - Unspecified asthma, uncomplicated Category: Medical Qualifiers: Asthma complication type: uncomplicated Asthma persistence: persistent Asthma severity: severe Qualified Code(s): J45.50 - Severe persistent asthma, uncomplicated (5) GERD (gastroesophageal reflux disease): Code(s): K21.9 - Gastro-esophageal reflux disease without esophagitis Category: Medical Qualifiers: Esophagitis presence: esophagitis presence not specified Qualified Code(s): K21.9 - Gastro-esophageal reflux disease without esophagitis (6) Dyspnea: Code(s): R06.00 - Dyspnea, unspecified Category: Medical Qualifiers: Dyspnea type: dyspnea on exertion Qualified Code(s): R06.09 - Other forms of dyspnea (7) Chest pain: Code(s): R07.9 - Chest pain, unspecified Category: Medical Qualifiers: Chest pain type: chest pain on breathing Qualified Code(s): R07.1 - Chest pain on breathing (8) JO (obstructive sleep apnea): Code(s): G47.33 - Obstructive sleep apnea (adult) (pediatric) Category: Medical (9) Chronic hypercapnic respiratory failure: Code(s): J96.12 - Chronic respiratory failure with hypercapnia Category: Medical Plan continue Symbicort continue Spiriva Xopenex as needed due to increase tremors and palpitations continue Dupixent, consider switching to Tezspire holding Daliresp 500mcg reflux diet stress ECHO Home PSG Cardiology referral F/U 3 months Orders: Orders RT PSG in-lab sleep study 09/27/24 G47.33 - Obstructive sleep apnea (adult) (pediatric), J96.12 - Chronic respiratory failure with hypercapnia Medications: Refilled albuterol sulfate 90 mcg/actuation 2 inhalations inhalation Q6H PRN 18 grams 12RF shortness of breath or wheezing 30 days J44.9 - Chronic obstructive pulmonary disease, unspecified tiotropium bromide 2.5 mcg/actuation (Spiriva Respimat) 2 puffs inhalation DAILY 1 ea 11RF 30 days albuterol sulfate 2.5 mg (3 mL) inhalation Q4H PRN 270 mL 11RF shortness of breath or wheezing 30 days Coding Level of Care Code Est Pt Level 4 (54983) Complex EM visit Add On G2211 Diagnoses Chronic allergic rhinitis J30.9 Moderate persistent asthma without complication J45.40 Asthma complication type: uncomplicated Asthma persistence: persistent Asthma severity: moderate Allergy, subsequent encounter T78.40XD Encounter type: subsequent encounter Gastroesophageal reflux disease, unspecified whether esophagitis present K21.9 Esophagitis presence: esophagitis presence not specified Dyspnea on exertion R06.09 Dyspnea type: dyspnea on exertion Chest pain on breathing R07.1 Chest pain type: chest pain on breathing JO (obstructive sleep apnea) G47.33 Chronic hypercapnic respiratory failure J96.12 Time Spent (min) 17
== END 2024-09-27 14:56 | disposition home or self-care (01) ==
PROVIDERS: PCP Internal Medicine; Visit Provider Hospitalist
DX: J45.50 Severe persistent asthma, uncomplicated (principal); J96.12 Chronic respiratory failure with hypercapnia; R07.1 Chest pain on breathing; G47.33 Obstructive sleep apnea (adult) (pediatric); K21.9 Gastro-esophageal reflux disease without esophagitis
CPT/HCPCS: 99214; G2211

== ENCOUNTER → 2024-09-27 14:13 | Outpatient (BNVA) | payer OTHER, SELFPAY | PROVIDERS: PCP Internal Medicine; Visit Provider Hospitalist | DX: J96.12 Chronic respiratory failure with hypercapnia (principal); J45.50 Severe persistent asthma, uncomplicated; J30.9 Allergic rhinitis, unspecified; R07.1 Chest pain on breathing; K21.9 Gastro-esophageal reflux disease without esophagitis; G47.33 Obstructive sleep apnea (adult) (pediatric); T78.40XD Allergy, unspecified, subsequent encounter; X58.XXXD Exposure to other specified factors, subsequent encounter | CPT/HCPCS: 99212 ==

== ENCOUNTER → 2024-10-10 11:08 | Outpatient (REF) | payer OTHER, SELFPAY ==
--- NOTE | 2024-10-10 11:12 | CA_ITS ---
Acquisition Time: 2024-10-10 11:22:33 Total Exercise Time: 00:05:15 Test Indications: Dyspnea Medications: Protocol: TRAV Max HR: 169 BPM 94% of Pred: 179 BPM Max BP: 130/80 mmHG Max Work Load: 7.0 METS Exercise Stress Test w1ith exercise 5 mins 15 secs of Rtav Protocol, achieving 92% MPHR, with reports of 8/10 baseline mid chest tightness that is constant and worse with palpation, reamined same with exercise. Reports mild SOB, without any arrythmias, with normotensive response to exercise. Without EKG chnages meeting criteria for ischemia, nonspecific ST- T waves at baseline. Echo images obtained by tech at rest and post peak exercise. Definity contrast utilized. Breathing returned to baseline. Test reviewed with Dr. Woodson. Referred By: José Antonio Rodriguez Electronically Signed By: Sandor Giron
--- OUTSIDE RECORDS SUMMARY | 2024-10-10 13:27 | XMS_ITS | Encounter Summary ---
Author Organization [employer] [facility] Address [address] [place] [address] [address] [place] [address] Care Team Providers Care Dam Worker Name Role Phone Unavailable Primary Care Provider Unavailabl e Reason for Visit * Reason Onset Date Comments Results 09/23/2024 Encounter Details Date Type Department Care Team (Late st Contact Info) Description 09/23/[address] [facility] MEDICINE [address] [place], [place] [id number] Nadia Brower RN [address] [place] [address] Results Social History Tobacco Use Types Packs/Day [...] AM EST TC x3 placed to patient [phone] in regards to below message however number is OOS. TC x3 placed to [phone] via [employer] ([employer] # [id number]) to inform of below message. Patient verbalized [...] PM EST TC x2 placed to patient [phone] in regards to below message however number is OOS. TC placed to [phone] however no answer, RN left requesting CB [...] 2:14 PM EST TC placed to patient [phone] in regards to below message however number is OOS. TC placed to [phone] however no answer, RN left requesting CB [...]
--- OUTSIDE RECORDS SUMMARY | 2024-10-10 13:27 | XMS_ITS | Clinical Summary ---
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 07/31/20 24 Active butalbital-acetam inophen-caffeine 50-325-40 MG tablet TAKE 1 TAB ORALLY DAILY NEEDED FOR PAIN FOR 30 DAYS 07/29/20 24 Active cetirizine (ZyrTEC) 10 MG tablet Take 1 tablet by mouth Once per day. 07/08/20 24 Active cholecalciferol VITAMIN D (Vitamin D-3) 50 MCG (2000 UT) capsule Take 1 capsule by mouth Once per day. 06/10/20 24 Active Dupixent 300 MG/2ML solution prefilled syringe injection 08/02/20 24 Active ferrous sulfate 325 (65 Fe) MG tablet Take 1 tablet by mouth Once per day. 06/19/20 24 Active montelukast (Singulair) 10 MG tablet Take 10 mg by mouth at bedtime. 07/31/20 24 Active topiramate (Topamax) 25 MG tablet Take 25 mg by mouth at bedtime. 07/29/20 24 Active Spiriva Respimat 2.5 MCG/ACT inhaler inhale 2 puffs by mouth once daily 05/23/20 24 Active famotidine (Pepcid) 40 MG tablet Take 1 tablet (40 mg) by mouth at bedtime. 30 tablet 3 08/22/19 25 026 Active Bismuth Subsalicylate 262 MG tablet Take 2 tablets (524 mg) by mouth 4 times daily for 14 days. 120 tablet 09/27/19 25 025 Active metroNIDAZOLE (Flagyl) 500 MG tablet Take 1 tablet (500 mg) by mouth 3 times daily for 14 days. 42 tablet 09/27/19 25 025 Active omeprazole (PriLOSEC) [address] capsuleIndication s:Helicobacter Pylori Infection Take 1 capsule (20 mg) by mouth before breakfast and before evening meal for 14 days. Do not crush or chew. 28 capsule 09/27/19 25 025 Active tetracycline 500 MG capsule Take 1 capsule (500 mg) by mouth 4 times daily for 14 days. 56 capsule 09/27/19 25 025 Active omeprazole (PriLOSEC) [address] capsule Take 1 capsule (40 mg) by mouth before breakfast and before evening meal. 60 capsule 3 08/22/19 25 025 Discontinued acetaminophen (Tylenol 8 Hour) 650 MG ER tablet Take 1 tablet (650 mg) by mouth every 8 (eight) hours if needed for mild pain. Do not crush, chew, or split. 40 tablet 1 08/22/19 25 025 Active Problems Problem Noted Date Diagnosed Date Chronic allergic rhinitis 08/22/2024 History of COVID-19 08/22/2024 History of Helicobacter pylori infection 025 Anemia 08/22/2024 Impaired fasting glucose 12/27/2013 Obesity 06/20/2013 Chronic gastroesophageal reflux disease 06/20/20 13 Moderate persistent asthma 08/17/2012 Herpes simplex 09/26/2011 Depression 09/26/2011 Anxiety 09/26/2011 Chronic migraine 07/26/2011 Posttraumatic stress disorder 06/28/2010 Encounters Date Type Department Care Team Description 09/27/2024 Orders Only [facility] MEDICINE [address] [place] [phone] Miladys Vides DO 09/23/2024 Telephone [facility] MEDICINE [address] [place] [address] Nadia Brower, RN Results 08/22/2024 10:00 AM EST Office Visit [facility] [address] [place] [phone] Miladys Vides DO Epigastric pain (Primary Dx); Elevated BP without diagnosis of hypertension 08/22/2024 Telephone [facility] MEDICINE [address] [place], [place] [phone] Trevon Mark MD New patient appt. from [...] 2013 HPV/Cotest 2013 Mammogram 2023 COVID-19 Vaccine (4 - season) 2024 11/23/2021, 12/14/2020, 11/16/2020 Influenza Vaccine [...] Vitamin D 25-OH Total 44.6 >30 ng/mL [facility] Comment:Health Based Referen ce Values*< 20 ng/mL Mpcqoyith25-98 ng/mL Insufficient> 30 ng/mL Sufficient*Rachelle VERONICA. N [...] DO LAB BLOOD ORDERABLES Final R esult [facility] [address] [place] [phone] * (ABNORMAL) CBC (08/22/2024 10:50 AM EST) White Blood Count 5.1 4.8 - 10.8 X10*3/uL [facility] Red Blood Count 5.03 4.20 - 5.50 X10*6/uL [facility] Hemoglobin 12.8 12.0 - 16.0 g/dl [facility] Hematocrit 39.9 37.0 - 47.0 % [facility] Mean Corpuscular Volume 79.3(L) 80.0 - 98.0 fL [facility] Mean Corpuscular Hemoglobin 25.4(L) 27.0 - 33.0 pg [facility] Mean Corpuscular HGB Conc 32.1 31.0 - 35.0 g/dl [facility] Red Cell Distribution Width 13.9 11.0 - 16.0 % [facility] Platelet Count 329 160 - 400 X10*3/uL [facility] Mean Platelet Volume 8.3(L) 9.4 - 12.3 fL [facility] NRBC Pct Auto 0.0 0.0 - 0.2 /100WBC [facility] NRBC Abs Auto 0.000 0.0 - 0.012 X10*3/uL [facility] Blood Venous blood specimen / Unknown 08/22/2024 10:50 AM EST 08/22/2024 11:32 AM EST us Miladys Vides DO LAB BLOOD ORDERABLES Final R esult [facility] [address] [place] [phone] * TSH (08/22/2024 10:50 AM EST) Thyroid Stimulating Hormone 1.08 0.32 - 4.0 uIU/mL [facility] Comment:TSH 3rd Generation ( [employer]) Blood Venous blood specimen / Unknown 08/22/2024 10:50 AM EST 08/22/2024 11:36 AM EST Miladys Canalesdaysimin DO LAB BLOOD ORDERABLES Final R esult Performing Organization Address City/[facility]/ZIP Co de Phone Number [facility] [address] [place] [phone] * T4, Free (08/22/2024 10:50 AM EST) Pathologist [facility] Free T4 (Free Thyroxine) 0.94 0.71 - 1.85 ng/dL [facility] Blood Venous blood specimen / Unknown 08/22/2024 10:50 AM EST 08/22/2024 11:36 AM EST Miladys Peewee DO LAB BLOOD ORDERABLES Final R esult Performing Organization Address City/[facility]/ZIP Co de Phone Number [facility] [address] [place] [phone] * Lipase (08/22/2024 10:50 AM EST) Pathologist [facility] Lipase 23 8 - 78 U/L [facility] Blood Venous blood specimen / Unknown 08/22/2024 10:50 AM EST 08/22/2024 11:36 AM EST Miladys Canalesguillermina DO LAB BLOOD ORDERABLES Final R esult Performing Organization Address City/[facility]/ZIP Co de Phone Number [facility] [address] [place] [phone] * Hemoglobin A1c (08/22/2024 10:50 AM EST) Pathologist [facility] Hemoglobin A1c 5.9 <6.0 % [facility] Comment:Hemoglobin A1C Refer ence Range Adults: 4.8 - 6.0 % Non diabetic: < 6.0 % Goal: < 7.0 %Additional Action Suggested: > 8.0 %Note: Hemoglobin A1c results are invalid for patients with abnormal amounts of HbF. Blood transfusions may impact the HbA1c concentration in the patient sample. Estimated Average Glucose 123 mg/dL [facility] Comment:eAG = Estimated ave rage glucose which is %A1C expressed asaverage glucose, using the formula of the M4L-FofkeqiOqvigwf Glucose study (ADAG), Diabetes Care, Vol.31,#8,Mar. 2007 Blood Venous blood specimen / Unknown 08/22/2024 10:50 AM EST 08/22/2024 11:32 AM EST Miladys Peewee DO LAB BLOOD ORDERABLES Final R esult Performing Organization Address [facility]/ZIP Co de Phone Number [facility] [address] [place] [phone] * Amylase (08/22/2024 10:50 AM EST) Amylase 54 28 - 100 U/L [facility] Blood Venous blood specimen / Unknown 08/22/2024 10:50 AM EST 08/22/2024 11:36 AM EST Miladys Vides DO LAB BLOOD ORDERABLES Final R esult Performing Organization Address [facility] Co de Phone Number [facility] [address] [place] [phone] * (ABNORMAL) Hepatic Function Panel (08/22/2024 10:50 AM EST) Bilirubin, Total 0.6 0.0 - 1.0 mg/dL [facility] Bilirubin, Direct 0.2 0.0 - 0.5 mg/dL [facility] Aspartate Amino Transferase 24 5 - 31 U/L [facility] Alanine Aminotransferase 17 0 - 31 U/L [facility] Total Protein 8.1(H) 6.5 - 8.0 g/dL [facility] Albumin Level 4.1 3.5 - 5.0 g/dL [facility] Alkaline Phosphatase 82 39 - 117 U/L [facility] Blood Venous blood specimen / Unknown 08/22/2024 10:50 AM EST 08/22/2024 11:36 AM EST Miladys Vides DO LAB BLOOD ORDERABLES Final R esult Performing Organization Address City/[facility]/ZIP Co de Phone Number [facility] [address] [place] [phone] * Lipid Panel, Standard (08/22/2024 10:50 AM EST) Triglycerides 60 <150 mg/dL [facility] Comment:Desirable Triglyceri de: less than 150 mg/dLBorderline High Triglyceride 150-199 mg/dLHigh Triglyceride: 200-499 mg/dLVery High Triglyceride: greater than or equal to 5OO mg/dL Cholesterol 149 <200 mg/dL [facility] Comment:Desirable Cholestero l: less than 200 mg/dLBorderline High Cholesterol: 200-239 mg/dLHigh Cholesterol: greater than 239 mg/dL LDL Cholesterol Calculated 95 <100 mg/dL [facility] Comment:Desirable LDL: less than 100 mg/dLNear Optimal/Above Optimal LDL: 110- 129 mg/dLBorderline High LDL: 130-159 mg/dLHigh LDL: 160-189 mg/dLVery High LDL: greater than or equal to 190 mg/dL HDL Cholesterol 42 >40 mg/dL [facility] Comment:Desirable HDL: great er than 40 mg/dL Note: This HDL assay may give artificially low results in patients with liver disease. Blood Venous blood specimen / Unknown 08/22/2024 10:50 AM EST 08/22/2024 11:36 AM EST Miladys Vides DO LAB BLOOD ORDERABLES Final R esult Performing Organization Address City/[facility]/ZIP Co de Phone Number [facility] [address] [place] [phone] * (ABNORMAL) Basic Metabolic Panel (08/22/2024 10:50 AM EST) Sodium 138 135 - 145 mmol/L [facility] Potassium 3.7 3.3 - 5.1 mmol/L [facility] Chloride 105 96 - 108 mmol/L [facility] Carbon Dioxide 27 22 - 29 mmol/L [facility] Anion Gap 10(L) 12 - 20 [facility] Urea Nitrogen (BUN) 9 9 - 16 mg/dL [facility] Creatinine, Serum 0.68 0.5 - 1.4 mg/dL [facility] Estimated Glomerular Filt Rate >60 [facility] Comment:Chronic Kidney Disea se: Estimated GFR < 60 mL/min/1.62b0Wdeaig Kidney Disease: Estimated GFR < 15 mL/min/1.73m2 Glucose 106 60 - 115 mg/dL [facility] Calcium 8.8 8.4 - 10.2 mg/dL [facility] Blood Venous blood specimen / Unknown 08/22/2024 10:50 AM EST 08/22/2024 11:36 AM EST [facility] [employer] LAB BLOOD ORDERABLES Final R esult Performing Organization Address City/[facility] de Phone Number [facility] [address] [place] [phone] * Helicobacter pylori, Urea Breath Test (08/22/2024 10:25 AM EST) H. pylori Breath Test Positive Negative [facility] Comment:Antimicrobials, prot on pump inhibitors and bismuthpreparations are known to suppress H. pylori. Ingestingthese medications within two weeks prior to performing thebreath test may produce negative test results. A positiveresult is still clinically valid. Breath Oral cavity structure / Unknown 08/22/2024 10:25 AM EST 08/22/2024 1:41 PM EST [facility]ys [employer] LAB BLOOD ORDERABLES Final R esult Performing Organization Address City/[facility] Co de Phone Number [place] [address] [phone] from Last 3 Months Insurance [facility] [employer] FULL
--- OUTSIDE RECORDS SUMMARY | 2024-10-10 13:27 | XMS_ITS | Encounter Summary ---
Author Organization [employer] [facility] Address [address] [place] [address] [address] [place] [address] Care Team Providers Care Depositing Machine Operator Name Role Phone Unavailable Primary Care Provider Unavailabl e Encounter Details Date Type Department Care Team (Late st Contact Info) Description 09/27/2024 Orders Only [facility] MEDICINE [address] [place], [place] [phone] Miladys Vides DO [address] [place], [place] [phone] Social History Tobacco Use Types Packs/Day Years Used Date Smoking Tobacco: Never Assessed Comments Unknown Sex and Gender Information Value Date Recorded Sex Assigned at Female 06/13/2022 10:21 AM EDT Legal Sex Female 10:21 AM EDT Gender Identity Female 06/13/2022 10:21 AM EDT Sexual Orientation Straight 06/13/2022 10 :21 AM EDT documented as of this encounter Progress Notes * Miladys Vides DO - 09/27/2024 2:21 PM EST Quadruple therapy for H. Pylori sent to [facility] pharmacy. documented in this encounter Plan of Treatment Not on file documented as of this encounter Visit Diagnoses Not on filedocumented in this encounter
== END ==
LOC: HO.CARD 11:08
PROVIDERS: Visit Provider Hospitalist
DX: R06.00 Dyspnea, unspecified (principal)
CPT/HCPCS: 93350; Q9957

== ENCOUNTER → 2024-10-10 11:12 | Outpatient (BNV) | payer OTHER, SELFPAY | DX: R06.02 Shortness of breath (principal); R07.9 Chest pain, unspecified | CPT/HCPCS: 93016; 93018; 93350; 93352 ==

== ENCOUNTER → 2024-11-07 20:30 | Outpatient (REF) | payer OTHER, SELFPAY | LOC: HO.SL 20:30 | PROVIDERS: PCP Internal Medicine; Visit Provider Hospitalist | DX: G47.33 Obstructive sleep apnea (adult) (pediatric) (principal); J96.12 Chronic respiratory failure with hypercapnia | CPT/HCPCS: 95810 ==

== ENCOUNTER → 2024-11-07 22:29 | Outpatient (BNV) | payer OTHER, SELFPAY | PROVIDERS: PCP Internal Medicine; Visit Provider Internal Medicine | DX: G47.33 Obstructive sleep apnea (adult) (pediatric) (principal) | CPT/HCPCS: 95810 ==

== ENCOUNTER 2024-12-13 14:32 | Outpatient (AMB) | payer OTHER, SELFPAY ==
[2024-12-13 14:33] VITALS: BP 120/80; PULSE 85; O2SAT 99; BMI 34.2
--- NOTE | 2024-12-13 14:33 | A.OFFVIS_ITS ---
Vital Signs 12/13/24 14:33 Height 5 ft 3 in Weight 192 lb 14.472 oz BMI 34.2 BP 120/80 Blood Pressure Location Lt brachial Position Sitting Pulse 85 Pulse Source Pulse Oximeter Pulse Oximetry (%) 99 Oxygen Delivery Method Room Air Intake Visit Reasons: Asthma Allergies duloxetine Adverse Reaction (Severe, Verified 12/13/24 14:35) Headache gabapentin Adverse Reaction (Intermediate, Verified 12/13/24 14:35) joint pain sumatriptan [SUMATRIPTAN] Adverse Reaction (Intermediate, Verified 12/13/24 14:35) Nausea, vomiting, HPI Comments Details: The patient is a 39-year-old woman with a known history of asthma. The patient has had multiple evaluations in the ER because of asthma exacerbations. She feels like asthma is not controlled. She feels like she needs to use her rescue inhaler on a daily basis. She only gets partial resolution when she uses inhalers. On further questioning she has not tried many maintenance inhalers at this time. In addition to that she has not had any allergy testing or pulmonary function study testing. Therefore, the patient will start maintenance therapy in addition to undergoing blood work and pulmonary function studies in the near future. 12/30/2022 the patient is here for pulmonary follow-up visit. The patient has been having her ups and Downs. Significant allergy symptoms during the spring. The Dupixent has been only partially helpful. We had referred her to allergy but she was given an appointment in May. Will go ahead and placed a referral to the actual doctor that we requested in the 1st place that had left the practice and hopefully she can be seen sooner. So therefore will not any change any of her immunotherapy as she is awaiting that visit with Allergy and immunology. In the meantime the patient did respond very well to Trelegy. She is not responding to Incruse nor budesonide. Therefore will go ahead and resend the Trelegy to the pharmacy as this was the 1 medication that helped her feel better. Hopefully we can get her on that at this time. In the meantime she is going to continue with allergy therapies and hopefully we can get her to Allergy soon. 06/30/2023 the patient is here for a pulmonary follow-up visit. The patient overall has been doing well. She continues on Dupixent injection. Although, she does not have any maintenance therapy. The patient was supposed to be on Trelegy but was not covered. Therefore she is been using her rescue inhaler on a daily basis. Will go ahead and send her a prescription for Symbicort that she can use twice a day. Hopefully with the Symbicort she will need to use her rescue inhaler. She will continue to use it Dupixent every 2 weeks because has been affecting beneficial. She also was found to have H pylori and she was placed on multiple medications for that making it very difficult with adverse effects. She is having significant reflux disease. She continues to try reflux diet. She is been on omeprazole 20 mg. will go ahead and increase the omeprazole to 40 mg to maximize the effect. She also follow-up with GI doctor. 11/16/2023 the patient is here for a pulmonary follow-up visit. Overall she is doing okay. She does continues to have frequent asthma symptoms with chest tightness and wheezing. She does use her rescue inhaler more than twice a week. She did respond well Dupixent. Then she lost her insurance and then she had to stop it. Now she has a regular insurance and will try to continue since it was affecting beneficial. She did have her allergy testing although she did have a reaction appeared to be delayed. Will go ahead and request blood work because is not clear based on her description of the allergy testing. She will follow-up with Allergy immunology in the near future. She does have a trip to [place] scheduled for the next week. I will make sure she can take some medicine with her in case she has worsening disease there. She continues to responding to the Symbicort. She also has a rescue inhaler and she will make sure to take a nebulizer with her for her travel. 05/23/2024 the patient is here for pulmonary follow-up visit. The patient has been struggling with her asthma symptoms. She has not been any better. She has been trying to be adherent to her therapy. Although she did gain a lot of medications at this time. She continues on the Dupixent injection. Does every 2 weeks. Although she takes him she is not sure how much they are helping. We did review her blood work from 12/02/2023 and her eosinophils were normal in the IgE also normal. Therefore, this is something we can consider coming off specially if she has not seen any improvement. She does continue on the Daliresp and does continue on the Symbicort inhaler. Her Symbicort has been very effective. Will go ahead and add a long-acting muscarinic antagonist see that provides relief. She is also wondering about budesonide. I can send the budesonide she can use it for now. However, the patient understands now that budesonide his steroid and by taking the Symbicort and the budesonide this could result in systemic manifestation the steroids. And she does not want that. Therefore will try to wean her off the budesonide once she is feeling better. The patient should have a repeat chest x-ray and also pulmonary function studies. Will continue to try a assess her asthma symptoms but we possibly could consider switching her Dupixent to test prior where we treated more of a nonallergic asthma such as neutrophilic predominant asthma which may be the issue with the patient at this time. 08/01/2024 the patient is here for a pulmonary follow-up visit. The patient has been struggling with her dyspnea on exertion. Moderate severity. He only minimal activity. She has started developing shortness of breath and coughing. She feels like her throat is closing. She continues on the Symbicort and she does find it helpful. She did get a prescription for Spiriva she has not been able to get at the pharmacy. I will resend it. It should be covered. And then once she can start that in the provide the additional support for bronchodilation. We did go for brief walking oximetry in the office. Just after few flights of stairs her heart rate was already in the 140s to 150s. The patient was visibly dyspneic. Her oxygen was normal. I did does not to her lungs once she was having hard time and she did not have any significant wheezing which is reassuring that is not exercise-induced asthma. Still in the differential. The patient had been scheduled for a stress echo in the past but she was not able to do it because she was having asthma that time. Will go ahead and reschedule her this time. The patient may have a component of pulmonary hypertension that we have to look into. She also has not chest discomfort so have her get some blood work including a D-dimer to see if we need to consider ruling out thromboembolic disease. The patient also has an appointment with Cardiology will be helpful. In the meantime will continue to consider maximizing her respiratory therapy. 09/27/2024 the patient is here for a pulmonary follow-up visit. He still complaining of dyspnea on exertion. Some chest tightness as well. Heart rate had been significantly elevated. She did have a Holter monitor although we do not have the results just yet. She is also scheduled for stress test. She will also follow-up with Cardiology. From a pulmonary standpoint she continues to use her inhalers although she did change insurance now some her inhalers on a covered. I believe she should be on Symbicort and I believe that is covered. Will go ahead and send Spiriva. She needs to have her short-acting beta agonist approved to the pharmacy so therefore I will send prescriptions. She has not gotten Daliresp. So therefore this point she is taking it will hold off specially since she is taking a lot of medications. Try to simplify her respiratory regimen. She does have daytime drowsiness. She does wake short of breath therefore will go ahead and request a sleep study. But since she did have a blood gas demonstrating elevations in her CO2 demonstrating chronic hypercarbic respiratory failure will go ahead and request an in-lab sleep study for this reason. 12/13/2024 the patient is here for pulmonary follow-up visit. Overall she is doing about the same. She still has some significant daytime drowsiness with an elevated [place] score of 11/24. Again she had issue with hypercarbia. The patient did have a sleep study done in the laboratory. It was limited study because she had a hard time sleeping but she did have an AHI up to 12 episodes per hour. The patient will benefit from starting CPAP therapy specially with her issues with tachyarrhythmias and palpitations along with the significant daytime drowsiness. Will go ahead and request a APAP from a local [employer] company. From an asthma standpoint she continues use her respiratory therapy with good response. Hopefully when she starts feeling better we can start deescalating care. Also, because of her significant shortness of breath the patient did undergo a stress test. The stress test was normal and no evidence of any cardiac disease. Therefore she can continue exercising regularly. Without any limitations. Will have her follow-up in 3-4 months and she should bring her CPAP so we can review with her. [facility] Medical History (Updated 09/27/24 @ 14:41 by José Antonio Rodriguez MD) Chronic hypercapnic respiratory failure JO (obstructive sleep apnea) Dyspnea Chest pain Allergies NORMA positive H. 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 Hypovitaminosis D Migraines Surgical History Hx of retained foreign body fully removed (11/23/17) History of tubal ligation History of section Family History Father CVD (cardiovascular disease) Mother Chronic mental illness Breast cancer Schizophrenia Mental health disorder Maternal Grandmother Hypertension Stroke Paternal Grandmother Breast cancer Paternal Aunt Breast cancer Paternal Aunt Cancer of unknown origin Family/Other Chronic mental illness Mental health disorder Social History Household Members: Family Housing: House Alcohol intake: never Patient Tobacco Use Status: Never used Tobacco e-Cigarette/Vaping Use: Never Used Second Hand Smoke Exposure: No service: No Current occupational status: employed Current occupational exposures/hazards: No Cognitive needs: No Hearing needs: No Vision needs: No Review of Systems Const Denies chills, Denies fatigue, Denies fever(s), Denies weight gain and Denies weight loss Eyes Reports no additional complaints, Denies change in vision and Denies other visual disturbances ENT Denies dizziness Card Denies chest pain, Denies leg edema, Denies lightheadedness, Denies palpitations, Reports dyspnea on exertion, Denies orthopnea and Denies other Resp Denies cough, Reports dyspnea on exertion and Reports wheezing GI Denies hematochezia and Denies change in stool character Denies urinary incontinence, Denies urinary hesitancy and Denies urinary urgency Musc Denies abnormal gait, Denies muscle weakness, Denies numbness, Denies radiating pain into limb and Denies tingling Neuro Denies abnormal gait, Denies dizziness, Denies numbness and Denies tingling Endo Denies fatigue and Denies palpitations Aller/Immun Reports wheezing Physical Exam Vital Signs: Last Vital Signs Pulse 85 12/13/24 14:33 BP 120/80 12/13/24 14:33 Pulse Ox 99 12/13/24 14:33 Oxygen Delivery Method Room Air 12/13/24 14:33 BMI result Body Mass Index 34.2 Const General: alert Neck Neck: Yes normal visual inspection, Yes full ROM and Yes no lymphadenopathy Chest Chest palpation & inspection: normal inspection of the chest Resp Effort & Inspection: normal respiratory effort Auscultation: no wheezes and diminished lung sounds Cardio Rate: tachycardic Rhythm: regular rhythm Heart sounds: S1 normal heart sound present and S2 normal heart sound present GI Palpation (GI): Soft to palpation and nontender Auscultation: normal bowel sounds General: Yes no CVA tenderness Back/Spine/Pelvis Back: no CVA tenderness Skin General skin exam: rashes and/or lesions noted Assessment & Plan Assessment & Plan (1) Chronic allergic rhinitis: Code(s): J30.9 - Allergic rhinitis, unspecified Category: Medical (2) Asthma: Code(s): J45.909 - Unspecified asthma, uncomplicated Category: Medical Qualifiers: Asthma severity: moderate Asthma persistence: persistent Asthma complication type: uncomplicated Qualified Code(s): J45.40 - Moderate persistent asthma, uncomplicated (3) Allergies: Code(s): T78.40XA - Allergy, unspecified, initial encounter Category: Medical Qualifiers: Encounter type: subsequent encounter Qualified Code(s): T78.40XD - Allergy, unspecified, subsequent encounter (4) GERD (gastroesophageal reflux disease): Code(s): K21.9 - Gastro-esophageal reflux disease without esophagitis Category: Medical Qualifiers: Esophagitis presence: esophagitis presence not specified Qualified Code(s): K21.9 - Gastro-esophageal reflux disease without esophagitis (5) Dyspnea: Code(s): R06.00 - Dyspnea, unspecified Category: Medical Qualifiers: Dyspnea type: dyspnea on exertion Qualified Code(s): R06.09 - Other forms of dyspnea (6) Chest pain: Code(s): R07.9 - Chest pain, unspecified Category: Medical Qualifiers: Chest pain type: chest pain on breathing Qualified Code(s): R07.1 - Chest pain on breathing (7) JO (obstructive sleep apnea): Code(s): G47.33 - Obstructive sleep apnea (adult) (pediatric) Category: Medical (8) Chronic hypercapnic respiratory failure: Code(s): J96.12 - Chronic respiratory failure with hypercapnia Category: Medical Plan continue Symbicort continue Spiriva Xopenex as needed due to increase tremors and palpitations continue Dupixent, consider switching to Tezspire holding Daliresp 500mcg reflux diet start APAP therapy Cardiology referral F/U 3 months Coding Level of Care Code Est Pt Level 4 (53674) Diagnoses Chronic allergic rhinitis J30.9 Moderate persistent asthma without complication J45.40 Asthma severity: moderate Asthma persistence: persistent Asthma complication type: uncomplicated Allergy, subsequent encounter T78.40XD Encounter type: subsequent encounter Gastroesophageal reflux disease, unspecified whether esophagitis present K21.9 Esophagitis presence: esophagitis presence not specified Dyspnea on exertion R06.09 Dyspnea type: dyspnea on exertion Chest pain on breathing R07.1 Chest pain type: chest pain on breathing JO (obstructive sleep apnea) G47.33 Chronic hypercapnic respiratory failure J96.12 Time Spent (min) 17
--- OUTSIDE RECORDS SUMMARY | 2024-12-13 14:40 | XMS_ITS | Clinical Summary ---
Author Organization [employer] Address [address] [place] [address] [address] [place] [address] Care Team Providers Care Tax Lawyer Name Role Phone Unavailable Primary Care Provider [...] puffs by mouth once daily 4 Active famotidine (Pepcid) 40 MG tablet Take 1 tablet (40 mg) by mouth at bedtime. 30 tablet 3 5 08/22/19 26 Active omeprazole (PriLOSEC) [address] Colon ons:Helicobacte r Pylori Infection Take 1 capsule (20 mg) by mouth before breakfast and before evening meal for 14 days. Do not crush or chew. 28 capsule 5 Active Active Problems Problem Noted Date Diagnosed Date Chronic allergic rhinitis 08/22/2024 History of COVID-19 08/22/2024 History of Helicobacter pylori infection 025 Anemia 08/22/2024 Impaired fasting glucose 12/27/2013 Obesity 06/20/2013 Chronic gastroesophageal reflux disease 06/20/20 13 Moderate persistent asthma 08/17/2012 Herpes simplex 09/26/2011 Depression 09/26/2011 Anxiety 09/26/2011 Chronic migraine 07/26/2011 Posttraumatic stress disorder 06/28/2010 Encounters Date Type Department Care Team Description 11/11/2024 Telephone [facility] [address] [place] [phone] Trevon Mark MD New patient appt. 11/07/2024 Refill [facility] [address] [place] [phone] Miladys Vides, 11/03/2024 Refill [facility] [address] [place] [phone] Miladys Vides, 09/27/2024 Orders Only [facility] [address] [place] [phone] Miladys Vides, 09/23/2024 Telephone [facility] [address] [place] [phone] Nadia Brower RN Results from Last 3 Months Social History Tobacco [...] 36.3 ??C (97.4 ??F) 08/22/2024 9:[address] Respiratory Rate 17 08/22/2024 9:48 AM EST [...] HPV/Cotest 2013 Mammogram 2023 COVID-19 Vaccine ( - season) 2024 11/23/2021, 12/14/2020, 11/16/2020 Influenza Vaccine (#1) 2024 , 07/29/2022, 06/07/2018, Additional history exists Diabetes: Hemoglobin [...] Procedure Name Priority Date/Time Associated Diagnosis Comments HEMOGLOBIN A1C Routine 08/22/2024 10:50 AM EST Epigastric pain LIPID PANEL, STANDARD Routine 08/22/2024 10:50 AM EST Epigastric pain from Last 3 Months or Most Recently Relevant to Health Maintenance Results * Hemoglobin A1c (08/22/2024 10:50 AM EST) Hemoglobin A1c 5.9 <6.0 % [facility] Comment:Hemoglobin A1C Refer ence Range Adults: 4.8 - 6.0 % Non diabetic: < 6.0 % Goal: < 7.0 %Additional Action Suggested: > 8.0 %Note: Hemoglobin A1c results are invalid for patients with abnormal amounts of HbF. Blood transfusions may impact the HbA1c concentration in the patient sample. Estimated Average Glucose 123 mg/dL [facility] Comment:eAG = Estimated ave rage glucose which is %A1C expressed asaverage glucose, using the formula of the I0O-OzxjsllOvmtzpc Glucose study (ADAG), Diabetes Care, Vol.31,#8,Mar. 2007 Blood Venous blood specimen / Unknown 08/22/2024 10:50 AM EST 08/22/2024 11:32 AM EST us Miladys Vides DO LAB BLOOD ORDERABLES Final R esult [facility] [address] [place] [address] [phone] * Lipid Panel, Standard (08/22/2024 10:50 AM EST) Triglycerides 60 <150 mg/dL [facility] Comment:Desirable Triglyceri de: less than 150 mg/dLBorderline High Triglyceride 150-199 mg/dLHigh Triglyceride: 200-499 mg/dLVery High Triglyceride: greater than or equal to 5OO mg/dL Cholesterol 149 <200 mg/dL [facility] Comment:Desirable Cholestero l: less than 200 mg/dLBorderline High Cholesterol: 200-239 mg/dLHigh Cholesterol: greater than 239 mg/dL LDL Cholesterol Calculated 95 <100 mg/dL [facility] Comment:Desirable LDL: less than 100 mg/dLNear Optimal/Above Optimal LDL: 110- 129 mg/dLBorderline High LDL: 130-159 mg/dLHigh LDL: 160-189 mg/dLVery High LDL: greater than or equal to 190 mg/dL HDL Cholesterol 42 >40 mg/dL [facility] Comment:Desirable HDL: great er than 40 mg/dL Note: This HDL assay may give artificially low results in patients with liver disease. Blood Venous blood specimen / Unknown 08/22/2024 10:50 AM EST 08/22/2024 11:36 AM EST us Miladys Vides DO LAB BLOOD ORDERABLES Final R esult [facility] [address] [place] [address] [phone] from Last 3 Months or Most Recently Relevant to Health Maintenance Insurance [facility] HSN FULL
--- OUTSIDE RECORDS SUMMARY | 2024-12-13 14:40 | XMS_ITS | Encounter Summary ---
Author Organization [employer] [facility] Address [address] [place] [address] Care Team Providers Care Multiple Drum Sander Helper Name Role Phone Unavailable Primary Care Provider Unavailabl e Reason for Visit * Reason Comments Med Refill Encounter Details Date Type Department Care Team (Late st Contact Info) Description 11/07/2024 Refill [facility] [address] [place] [address] Miladys Vides DO [address] [place] [address] Social History Tobacco Use Types Packs/Day Years Used Date Smoking Tobacco: Never Assessed Comments Unknown Sex and Gender Information Value Date Recorded Sex Assigned at Female 06/13/2022 10:21 AM EDT Legal Sex Female 10:21 AM EDT Gender Identity Female 06/13/2022 10:21 AM EDT Sexual Orientation Straight 06/13/2022 10 :21 AM EDT documented as of this encounter Plan of Treatment Not on file documented as of this encounter Visit Diagnoses Not on filedocumented in this encounter
--- OUTSIDE RECORDS SUMMARY | 2024-12-13 14:40 | XMS_ITS | Encounter Summary ---
Author Organization [employer] [facility] Address [address] [place] [address] Care Team Providers Care Rn Primary Care Name Role Phone Unavailable Primary Care Provider Unavailabl e Reason for Visit * Reason Comments Med Refill Encounter Details Date Type Department Care Team (Late st Contact Info) Description 11/03/2024 Refill [facility] [address] [place] [address] Miladys Vides DO [address] [place] [address] Social History Tobacco Use Types Packs/Day Years [...]
== END 2024-12-13 14:58 | disposition home or self-care (01) ==
LOC: HO.HPS 14:33
PROVIDERS: PCP Internal Medicine; Visit Provider Hospitalist
DX: J30.9 Allergic rhinitis, unspecified (principal); J45.40 Moderate persistent asthma, uncomplicated; T78.40XD Allergy, unspecified, subsequent encounter; K21.9 Gastro-esophageal reflux disease without esophagitis; R06.09 Other forms of dyspnea; R07.1 Chest pain on breathing; G47.33 Obstructive sleep apnea (adult) (pediatric); J96.12 Chronic respiratory failure with hypercapnia
CPT/HCPCS: 99214

== ENCOUNTER → 2024-12-13 14:32 | Outpatient (BNVA) | payer OTHER, SELFPAY | PROVIDERS: PCP Internal Medicine; Visit Provider Hospitalist | DX: R07.1 Chest pain on breathing (principal); G47.33 Obstructive sleep apnea (adult) (pediatric); J96.12 Chronic respiratory failure with hypercapnia; J44.9 Chronic obstructive pulmonary disease, unspecified; J30.9 Allergic rhinitis, unspecified; J45.40 Moderate persistent asthma, uncomplicated; K21.9 Gastro-esophageal reflux disease without esophagitis; T78.40XD Allergy, unspecified, subsequent encounter; X58.XXXD Exposure to other specified factors, subsequent encounter | CPT/HCPCS: 99212 ==

== ENCOUNTER 2025-01-27 12:35 | Outpatient (AMB) | payer OTHER, SELFPAY ==
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
[2025-01-27 12:47] VITALS: BP 128/82; BMI 34.2
--- OUTSIDE RECORDS SUMMARY | 2025-01-27 13:59 | XMS_ITS | Encounter Summary ---
Author Organization [facility] Address [address] [place] [address] Care Team Providers Care Clam Shucker Name Role Phone Unavailable Primary Care Provider Unavailabl e Reason for Visit * Reason Comments Med Refill Encounter Details Date Type Department Care Team (Late st Contact Info) Description 11/07/2024 Refill [facility] [address] [place] [address] Miladys Vides DO [address] [place] [address] Social History Tobacco Use Types Packs/Day Years [...]
== END 2025-01-27 13:23 | disposition home or self-care (01) ==
LOC: HO.HMCH 12:35
PROVIDERS: PCP Internal Medicine; Visit Provider Internal Medicine
DX: Z00.00 Encounter for general adult medical examination without abnormal findings (principal); A04.8 Other specified bacterial intestinal infections; F32.0 Major depressive disorder, single episode, mild

== ENCOUNTER → 2025-01-27 12:35 | Outpatient (BNVA) | payer OTHER, SELFPAY | PROVIDERS: PCP Internal Medicine; Visit Provider Internal Medicine | DX: Z00.00 Encounter for general adult medical examination without abnormal findings (principal); A04.8 Other specified bacterial intestinal infections; F32.0 Major depressive disorder, single episode, mild | CPT/HCPCS: 96127; 99212; 99396 ==

== ENCOUNTER → 2025-02-11 08:30 | Outpatient (BNV) | payer OTHER, SELFPAY | PROVIDERS: PCP Internal Medicine; Visit Provider Internal Medicine | DX: Z12.31 Encounter for screening mammogram for malignant neoplasm of breast (principal) | CPT/HCPCS: 77063; 77067 ==

== ENCOUNTER 2025-02-11 08:46 | Outpatient (REF) | payer OTHER, SELFPAY | END 2025-02-11 08:47 | disposition home or self-care (01) | LOC: HO.MAMMO 08:46 | PROVIDERS: PCP Internal Medicine; Visit Provider Internal Medicine | DX: Z12.31 Encounter for screening mammogram for malignant neoplasm of breast (principal) | CPT/HCPCS: 77063; 77067 ==

== ENCOUNTER 2025-03-17 14:26 | Outpatient (AMB) | payer OTHER, SELFPAY ==
--- OUTSIDE RECORDS SUMMARY | 2025-03-17 14:30 | XMS_ITS | Encounter Summary ---
Author Organization [facility] Address [address] [place] [address] Care Team Providers Care Organ Tuner Name Role Phone Unavailable Primary Care Provider Unavailabl e Reason for Visit * Reason Comments Med Refill Encounter Details Date Type Department Care Team (Late st Contact Info) Description 11/07/2024 Refill [facility] [address] [place] [address] Miladys Vides DO [address] [place] [address] Social History Tobacco Use Types Packs/Day Years [...]
[2025-03-17 14:31] VITALS: BP 120/72; PULSE 96; O2SAT 98; BMI 34.2
--- NOTE | 2025-03-17 14:31 | A.OFFVIS_ITS ---
Vital Signs 03/17/25 14:31 Height 5 ft 3 in Weight 192 lb 14.472 oz BMI 34.2 BP 120/72 Blood Pressure Location Lt brachial Position Sitting Pulse 96 Pulse Source Pulse Oximeter Pulse Oximetry (%) 98 Oxygen Delivery Method Room Air Intake Visit Reasons: Asthma Accompanied by: Self / Same As Patient Allergies duloxetine Adverse Reaction (Severe, Verified 03/17/25 14:34) Headache gabapentin Adverse Reaction (Intermediate, Verified 03/17/25 14:34) joint pain sumatriptan (SUMATRIPTAN) Adverse Reaction (Intermediate, Verified 03/17/25 14:34) Nausea, vomiting, HPI Comments Details: The patient is a 39-year-old woman with a known history of asthma. The patient has had multiple evaluations in the ER because of asthma exacerbations. She feels like asthma is not controlled. She feels like she needs to use her rescue inhaler on a daily basis. She only gets partial resolution when she uses inhalers. On further questioning she has not tried many maintenance inhalers at this time. In addition to that she has not had any allergy testing or pulmonary function study testing. Therefore, the patient will start maintenance therapy in addition to undergoing blood work and pulmonary function studies in the near future. 12/30/2022 the patient is here for pulmonary follow-up visit. The patient has been having her ups and Downs. Significant allergy symptoms during the spring. The Dupixent has been only partially helpful. We had referred her to allergy but she was given an appointment in May. Will go ahead and placed a referral to the actual doctor that we requested in the 1st place that had left the practice and hopefully she can be seen sooner. So therefore will not any change any of her immunotherapy as she is awaiting that visit with Allergy and immunology. In the meantime the patient did respond very well to Trelegy. She is not responding to Incruse nor budesonide. Therefore will go ahead and resend the Trelegy to the pharmacy as this was the 1 medication that helped her feel better. Hopefully we can get her on that at this time. In the meantime she is going to continue with allergy therapies and hopefully we can get her to Allergy soon. 06/30/2023 the patient is here for a pulmonary follow-up visit. The patient overall has been doing well. She continues on Dupixent injection. Although, she does not have any maintenance therapy. The patient was supposed to be on Trelegy but was not covered. Therefore she is been using her rescue inhaler on a daily basis. Will go ahead and send her a prescription for Symbicort that she can use twice a day. Hopefully with the Symbicort she will need to use her rescue inhaler. She will continue to use it Dupixent every 2 weeks because has been affecting beneficial. She also was found to have H pylori and she was placed on multiple medications for that making it very difficult with adverse effects. She is having significant reflux disease. She continues to try reflux diet. She is been on omeprazole 20 mg. will go ahead and increase the omeprazole to 40 mg to maximize the effect. She also follow-up with GI doctor. 11/16/2023 the patient is here for a pulmonary follow-up visit. Overall she is doing okay. She does continues to have frequent asthma symptoms with chest tightness and wheezing. She does use her rescue inhaler more than twice a week. She did respond well Dupixent. Then she lost her insurance and then she had to stop it. Now she has a regular insurance and will try to continue since it was affecting beneficial. She did have her allergy testing although she did have a reaction appeared to be delayed. Will go ahead and request blood work because is not clear based on her description of the allergy testing. She will follow- up with Allergy immunology in the near future. She does have a trip to [place] scheduled for the next week. I will make sure she can take some medicine with her in case she has worsening disease there. She continues to responding to the Symbicort. She also has a rescue inhaler and she will make sure to take a nebulizer with her for her travel. 05/23/2024 the patient is here for pulmonary follow-up visit. The patient has been struggling with her asthma symptoms. She has not been any better. She has been trying to be adherent to her therapy. Although she did gain a lot of medications at this time. She continues on the Dupixent injection. Does every 2 weeks. Although she takes him she is not sure how much they are helping. We did review her blood work from 12/02/2023 and her eosinophils were normal in the IgE also normal. Therefore, this is something we can consider coming off specially if she has not seen any improvement. She does continue on the Daliresp and does continue on the Symbicort inhaler. Her Symbicort has been very effective. Will go ahead and add a long-acting muscarinic antagonist see that provides relief. She is also wondering about budesonide. I can send the budesonide she can use it for now. However, the patient understands now that budesonide his steroid and by taking the Symbicort and the budesonide this could result in systemic manifestation the steroids. And she does not want that. Therefore will try to wean her off the budesonide once she is feeling better. The patient should have a repeat chest x-ray and also pulmonary function studies. Will continue to try a assess her asthma symptoms but we possibly could consider switching her Dupixent to test prior where we treated more of a nonallergic asthma such as neutrophilic predominant asthma which may be the issue with the patient at this time. 08/01/2024 the patient is here for a pulmonary follow-up visit. The patient has been struggling with her dyspnea on exertion. Moderate severity. He only minimal activity. She has started developing shortness of breath and coughing. She feels like her throat is closing. She continues on the Symbicort and she does find it helpful. She did get a prescription for Spiriva she has not been able to get at the pharmacy. I will resend it. It should be covered. And then once she can start that in the provide the additional support for bronchodilation. We did go for brief walking oximetry in the office. Just after few flights of stairs her heart rate was already in the 140s to 150s. The patient was visibly dyspneic. Her oxygen was normal. I did does not to her lungs once she was having hard time and she did not have any significant wheezing which is reassuring that is not exercise-induced asthma. Still in the differential. The patient had been scheduled for a stress echo in the past but she was not able to do it because she was having asthma that time. Will go ahead and reschedule her this time. The patient may have a component of pulmonary hypertension that we have to look into. She also has not chest discomfort so have her get some blood work including a D-dimer to see if we need to consider ruling out thromboembolic disease. The patient also has an appointment with Cardiology will be helpful. In the meantime will continue to consider maximizing her respiratory therapy. 09/27/2024 the patient is here for a pulmonary follow-up visit. He still complaining of dyspnea on exertion. Some chest tightness as well. Heart rate had been significantly elevated. She did have a Holter monitor although we do not have the results just yet. She is also scheduled for stress test. She will also follow-up with Cardiology. From a pulmonary standpoint she continues to use her inhalers although she did change insurance now some her inhalers on a covered. I believe she should be on Symbicort and I believe that is covered. Will go ahead and send Spiriva. She needs to have her short-acting beta agonist approved to the pharmacy so therefore I will send prescriptions. She has not gotten Daliresp. So therefore this point she is taking it will hold off specially since she is taking a lot of medications. Try to simplify her respiratory regimen. She does have daytime drowsiness. She does wake short of breath therefore will go ahead and request a sleep study. But since she did have a blood gas demonstrating elevations in her CO2 demonstrating chronic hypercarbic respiratory failure will go ahead and request an in-lab sleep study for this reason. 12/13/2024 the patient is here for pulmonary follow-up visit. Overall she is doing about the same. She still has some significant daytime drowsiness with an elevated Kindred score of 11/24. Again she had issue with hypercarbia. The patient did have a sleep study done in the laboratory. It was limited study because she had a hard time sleeping but she did have an AHI up to 12 episodes per hour. The patient will benefit from starting CPAP therapy specially with her issues with tachyarrhythmias and palpitations along with the significant daytime drowsiness. Will go ahead and request a APAP from a local [employer] company. From an asthma standpoint she continues use her respiratory therapy with good response. Hopefully when she starts feeling better we can start deescalating care. Also, because of her significant shortness of breath the patient did undergo a stress test. The stress test was normal and no evidence of any cardiac disease. Therefore she can continue exercising regularly. Without any limitations. Will have her follow-up in 3-4 months and she should bring her CPAP so we can review with her. 03/17/2025 the patient is here for a pulmonary follow-up visit. Overall the patient has been doing fair. For the last week she has had a hard time with the breathing. Chest tightness and chest discomfort. Primarily on the left side. Feels like it is her asthma acting up. She was in [place] and just recently came back in while she was in [place] she was feeling perfectly fine. Now her symptoms became more significant. She has been under Dupixent although the Dupixent has not been effective for her. She has still continued to have asthma exacerbations. Will go ahead and look into switching her Dupixent to test prior to see if we can get a broader affect and help with her exacerbations. I will send some prednisone for now though. In the meantime she did get her CPAP in the CPAP therapy has been affecting beneficial. She does use it for more than 4 hours a night. Although her mask currently is given her a rash on her face. I did have a N20 AirTouch foam mask available that she can use to see if the phone is a little bit better for her skin and to see if she does not develop any skin reactions. She still has a rash. I also adjusted the humidity in the machine. Hopefully she tolerates that a little better. The patient follow-up in 3 months or sooner if any issues arise. [facility] Medical History Chronic hypercapnic respiratory failure JO (obstructive sleep apnea) Dyspnea Chest pain Allergies NORMA positive H. 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 Hypovitaminosis D Migraines Surgical History Hx of retained foreign body fully removed (11/23/17) History of tubal ligation History of section Family History Father CVD (cardiovascular disease) Mother Chronic mental illness Breast cancer Schizophrenia Mental health disorder Maternal Grandmother Hypertension Stroke Paternal Grandmother Breast cancer Paternal Aunt Breast cancer Paternal Aunt Cancer of unknown origin Family/Other Chronic mental illness Mental health disorder Social History Household Members: Family Housing: House Alcohol intake: never Patient Tobacco Use Status: Never used Tobacco e-Cigarette/Vaping Use: Never Used Second Hand Smoke Exposure: No service: No Current occupational status: employed Current occupational exposures/hazards: No Cognitive needs: No Hearing needs: No Vision needs: No Review of Systems Const Denies chills, Denies fatigue, Denies fever(s), Denies weight gain and Denies weight loss Eyes Reports no additional complaints, Denies change in vision and Denies other visual disturbances ENT Denies dizziness Card Denies chest pain, Denies leg edema, Denies lightheadedness, Denies palpitations, Reports dyspnea on exertion, Denies orthopnea and Denies other Resp Denies cough, Reports dyspnea on exertion and Reports wheezing GI Denies hematochezia and Denies change in stool character Denies urinary incontinence, Denies urinary hesitancy and Denies urinary urgency Musc Denies abnormal gait, Denies muscle weakness, Denies numbness, Denies radiating pain into limb and Denies tingling Neuro Denies abnormal gait, Denies dizziness, Denies numbness and Denies tingling Endo Denies fatigue and Denies palpitations Aller/Immun Reports wheezing Physical Exam Vital Signs: Last Vital Signs Pulse 96 03/17/25 14:31 BP 120/72 03/17/25 14:31 Pulse Ox 98 03/17/25 14:31 Oxygen Delivery Method Room Air 03/17/25 14:31 BMI result Body Mass Index 34.2 Const General: alert Neck Neck: Yes normal visual inspection, Yes full ROM and Yes no lymphadenopathy Chest Chest palpation & inspection: normal inspection of the chest Resp Effort & Inspection: normal respiratory effort and prolonged expiratory phase Auscultation: no wheezes and diminished lung sounds Cardio Rate: tachycardic Rhythm: regular rhythm Heart sounds: S1 normal heart sound present and S2 normal heart sound present GI Palpation (GI): Soft to palpation and nontender Auscultation: normal bowel sounds General: Yes no CVA tenderness Back/Spine/Pelvis Back: no CVA tenderness Skin General skin exam: rashes and/or lesions noted Assessment & Plan Assessment & Plan (1) Asthma: Code(s): J45.909 - Unspecified asthma, uncomplicated Category: Medical Qualifiers: Asthma complication type: with acute exacerbation Asthma persistence: persistent Asthma severity: moderate Qualified Code(s): J45.41 - Moderate persistent asthma with (acute) exacerbation (2) Chronic allergic rhinitis: Code(s): J30.9 - Allergic rhinitis, unspecified Category: Medical (3) Allergies: Code(s): T78.40XA - Allergy, unspecified, initial encounter Category: Medical Qualifiers: Encounter type: subsequent encounter Qualified Code(s): T78.40XD - Allergy, unspecified, subsequent encounter (4) GERD (gastroesophageal reflux disease): Code(s): K21.9 - Gastro-esophageal reflux disease without esophagitis Category: Medical Qualifiers: Esophagitis presence: esophagitis presence not specified Qualified Code(s): K21.9 - Gastro-esophageal reflux disease without esophagitis (5) Dyspnea: Code(s): R06.00 - Dyspnea, unspecified Category: Medical Qualifiers: Dyspnea type: dyspnea on exertion Qualified Code(s): R06.09 - Other forms of dyspnea (6) JO (obstructive sleep apnea): Code(s): G47.33 - Obstructive sleep apnea (adult) (pediatric) Category: Medical (7) Chronic hypercapnic respiratory failure: Code(s): J96.12 - Chronic respiratory failure with hypercapnia Category: Medical Plan continue Symbicort continue Spiriva medrol pk Xopenex as needed due to increase tremors and palpitations stop Dupixent, switch to Tezspire reflux diet continue APAP therapy ?rash, trial N20 med airtouch foam F/U 3 months Medications: New methylprednisolone (Medrol ([place])) PO PER PKG DIR 21 ea 0RF 6 days Coding Level of Care Code Est Pt Level 4 (85748) Complex EM visit Add On G2211 Diagnoses Moderate persistent asthma with acute exacerbation J45.41 Asthma complication type: with acute exacerbation Asthma persistence: persistent Asthma severity: moderate Chronic allergic rhinitis J30.9 Allergy, subsequent encounter T78.40XD Encounter type: subsequent encounter Gastroesophageal reflux disease, unspecified whether esophagitis present K21.9 Esophagitis presence: esophagitis presence not specified Dyspnea on exertion R06.09 Dyspnea type: dyspnea on exertion JO (obstructive sleep apnea) G47.33 Chronic hypercapnic respiratory failure J96.12 Time Spent (min) 17
== END 2025-03-17 14:59 | disposition home or self-care (01) ==
LOC: HO.HPS 14:27
PROVIDERS: PCP Internal Medicine; Visit Provider Hospitalist
DX: J45.41 Moderate persistent asthma with (acute) exacerbation (principal); J30.9 Allergic rhinitis, unspecified; T78.40XD Allergy, unspecified, subsequent encounter; K21.9 Gastro-esophageal reflux disease without esophagitis; R06.09 Other forms of dyspnea; G47.33 Obstructive sleep apnea (adult) (pediatric); J96.12 Chronic respiratory failure with hypercapnia
CPT/HCPCS: 99214

== ENCOUNTER → 2025-03-17 14:26 | Outpatient (BNVA) | payer OTHER, SELFPAY | PROVIDERS: PCP Internal Medicine; Visit Provider Hospitalist | DX: J45.41 Moderate persistent asthma with (acute) exacerbation (principal); R07.1 Chest pain on breathing; G47.33 Obstructive sleep apnea (adult) (pediatric); J96.12 Chronic respiratory failure with hypercapnia; A04.8 Other specified bacterial intestinal infections; J30.9 Allergic rhinitis, unspecified; K21.9 Gastro-esophageal reflux disease without esophagitis | CPT/HCPCS: 99212 ==

== ENCOUNTER 2025-05-19 16:36 | Outpatient (AMB) | payer OTHER, SELFPAY ==
[2025-05-19 16:40] VITALS: BP 110/78; PULSE 90; RESP 18; TEMP 36.3; O2SAT 94; BMI 35.0
--- NOTE | 2025-05-19 16:40 | MHC.PC.OV ---
Vital Signs 05/19/25 16:40 Height 5 ft 3 in Weight 197 lb 6 oz BMI 35.0 BP 110/78 Blood Pressure Location Lt brachial Position Sitting Respiration 18 Pulse 90 Pulse Source Pulse Oximeter Temp 97.3 F Temp Source Temporal Artery Scan Pulse Oximetry (%) 94 Oxygen Delivery Method Room Air Intake Visit Reasons: Swollen face Family Preservation Worker Required: No Accompanied by: Self / Same As Patient Allergies duloxetine Adverse Reaction (Severe, Verified 05/19/25 16:49) Headache gabapentin Adverse Reaction (Intermediate, Verified 05/19/25 16:49) joint pain sumatriptan (SUMATRIPTAN) Adverse Reaction (Intermediate, Verified 05/19/25 16:49) Nausea, vomiting, Medication List - Last Reconciled 05/19/25 by Norma Keane MD albuterol sulfate 90 mcg/actuation 2 inhalations inhalation Q6H PRN 30 days albuterol sulfate 2.5 mg (3 mL) inhalation Q4H PRN 30 days barium sulfate 2%(w/v) (Readi-Cat 2) 450 mL PO .twice 1 day bismuth subcit B-kqhpdetnn-uyr 140-125-125 mg (Pylera) 3 caps PO QID 14 days bismuth subsalicylate 525 mg (15 mL) PO QID 14 days Brace,wrist As directed budesonide 0.5 mg (2 mL) inhalation BID 30 days budesonide-formoterol 160-4.5 mcg/actuation (Symbicort) 2 puffs inhalation BID 30 days bupropion HCl XL 150 mg PO QAM 90 days jlwueiztrc-ygsckdbfmzkfj-pyxj 50-325-40 mg 1 tab PO DAILY PRN 30 days cetirizine 10 mg PO DAILY NS cholecalciferol (vitamin D3) 50 mcg PO DAILY 90 days cyclobenzaprine 10 mg PO TID PRN dupilumab 300 mg (2 mL) subcut Q2W epinephrine (EpiPen 2-[place]) 0.3 mg (0.3 mL) IM Q10M PRN 30 days ferrous sulfate (iron) 325 mg PO DAILY fluticasone propionate 50 mcg/actuation (Flonase Allergy Relief) 1 spray intranasal BID 30 days ibuprofen 800 mg PO TID levalbuterol HCl 1.25 mg (3 mL) inhalation Q6H PRN levalbuterol tartrate 45 mcg/actuation 2 puffs inhalation Q6H PRN methylprednisolone (Medrol ([place])) PO PER PKG DIR 6 days montelukast 10 mg PO BEDTIME nebulizers As directed omeprazole 40 mg PO DAILY 30 days ondansetron HCl 8 mg PO BID tetracycline 500 mg PO Q6H 14 days tiotropium bromide 2.5 mcg/actuation (Spiriva Respimat) 2 puffs inhalation DAILY 30 days topiramate 25 mg PO BEDTIME Tobacco use date assessed: 05/19/25 Dental Screening Dental Screen Date: 05/19/25 Did you have a dental visit in the last 12 months?: Yes Did you have a dental problem in the last 6 months where you did not have access to dental care?: No Was dental information given to patient?: Patient has dentist HPI HPI Comments History of Present Illness Details The patient is a 39-year-old female presenting with facial swelling and excessive headaches. The facial swelling began approximately a month ago, characterized by significant swelling on one side of the face, which has since resolved. The swelling was accompanied by redness and pain, resembling rosacea, for which doxycycline was prescribed. The patient reports daily headaches, particularly severe in the mornings, which have been persistent and debilitating. She has been using Fioricet sparingly due to concerns about rebound headaches. Topamax is currently being used for migraine prevention, with a potential increase in dosage discussed. The patient has a history of gastroesophageal reflux disease, managed with omeprazole, and has experienced nausea. She was prescribed antibiotics for H. pylori infection, but did not receive them due to cost issues. The patient has been advised to take tetracycline and metronidazole for the infection. [facility] Medical History Chronic hypercapnic respiratory failure JO (obstructive sleep apnea) Dyspnea Chest pain Allergies NORMA positive H. 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 Hypovitaminosis D Migraines Surgical History Hx of retained foreign body fully removed (11/23/17) History of tubal ligation History of section Family History Father CVD (cardiovascular disease) Mother Chronic mental illness Breast cancer Schizophrenia Mental health disorder Maternal Grandmother Hypertension Stroke Paternal Grandmother Breast cancer Paternal Aunt Breast cancer Paternal Aunt Cancer of unknown origin Family/Other Chronic mental illness Mental health disorder Social History Household Members: Family Housing: House Alcohol intake: never Patient Tobacco Use Status: Never used Tobacco e-Cigarette/Vaping Use: Never Used Second Hand Smoke Exposure: No service: No Current occupational status: employed Current occupational exposures/hazards: No Cognitive needs: No Hearing needs: No Vision needs: No Questionnaire Thrive Questionnaire Date Thrive assessed: 01/27/25 I am a: Patient What is your living situation today?: I have a steady place to live Within the past 12 months, did the food you bought not last and you didn't have the money to get more?: I choose not to answer this question Within the past 12 months, did you worry whether your food would run out before you got money to buy more?: Sometimes True Do you have trouble paying for medicines?: Yes Do you have trouble getting transportation to medical appointments?: No Do you have trouble paying your heating and electricity bill?: No Do you have trouble taking care of your child, family member or friend?: No Do you have trouble with day-to-day activities such as bathing, preparing meals, shopping, managing finances, etc.?: No Are you currently unemployed and looking for a job?: No Are you interested in more education?: Yes Please select the resources that you would like help with: Paying for medicine THRIVE Score: 1 QUYNH-7 AMB Questionnaire QUYNH-7 Date QUYNH - 7 assessed: 01/27/25 Source: Developed by Drs. Huber Zamora, Opal Wyatt, Demetrius Figueroa and colleagues, with an educational yvrose from [employer]. Review of Systems Const All systems reviewed & are unremarkable except as noted in HPI and below Card Denies chest pain at rest, Denies chest pain with activity, Denies edema, Denies irregular heart rhythm, Denies claudication, Denies dyspnea, Denies dyspnea on exertion, Denies orthopnea, Denies paroxysmal nocturnal dyspnea and Denies slow heart rate Resp Denies cough, Denies dyspnea and Denies dyspnea on exertion GI Denies abdominal pain, Denies change in bowel habits, Denies excessive flatus, Denies nausea and Denies vomiting Neuro Denies lack of coordination Physical exam (Primary Care) Vital Signs: Last Vital Signs Temp 97.3 F 05/19/25 16:40 Pulse 90 05/19/25 16:40 Resp 18 05/19/25 16:40 BP 110/78 05/19/25 16:40 Pulse Ox 94 05/19/25 16:40 Oxygen Delivery Method Room Air 05/19/25 16:40 BMI result Body Mass Index 35.0 BMI Assessment/Plan discussion: High BMI High, discussed plan: lifestyle, weight reduction, dietary and physical activity Tobacco/Smoking Status: Tobacco use Status Tobacco use date assessed 05/19/25 05/19/25 16:47 Patient Tobacco Use Status Never used Tobacco 05/19/25 16:47 e-Cigarette/Vaping Use Never Used 05/19/25 16:47 Thrive Assessment: Date of Thrive Assessment Date Thrive assessed 01/27/25 05/19/25 16:47 Resp Effort & Inspection: normal respiratory effort Auscultation: clear to auscultation bilaterally Cardio Jugular venous distension: no JVD Rate: regular rate Rhythm: regular rhythm Heart sounds: S1 normal heart sound present and S2 normal heart sound present Extrem General: Yes full ROM Coding Level of Care Code Est Pt Level 4 (96782) Complex EM visit Add On G2211 Diagnoses Gastroesophageal reflux disease, unspecified whether esophagitis present K21.9 Esophagitis presence: esophagitis presence not specified Migraines G43.009 Intractability: not intractable Migraine type: without aura Status migrainosus presence: without status migrainosus Moderate persistent asthma with acute exacerbation J45.41 Asthma severity: moderate Asthma persistence: persistent Asthma complication type: with acute exacerbation Chronic allergic rhinitis J30.9 Time Spent (min) 20 Assessment & Plan Assessment & Plan (1) GERD (gastroesophageal reflux disease): Code(s): K21.9 - Gastro-esophageal reflux disease without esophagitis Category: Medical Qualifiers: Esophagitis presence: esophagitis presence not specified Qualified Code(s): K21.9 - Gastro-esophageal reflux disease without esophagitis (2) Migraines: Code(s): G43.909 - Migraine, unspecified, not intractable, without status migrainosus Category: Medical Qualifiers: Intractability: not intractable Migraine type: without aura Status migrainosus presence: without status migrainosus Qualified Code(s): G43.009 - Migraine without aura, not intractable, without status migrainosus (3) Asthma: Code(s): J45.909 - Unspecified asthma, uncomplicated Category: Medical Qualifiers: Asthma severity: moderate Asthma persistence: persistent Asthma complication type: with acute exacerbation Qualified Code(s): J45.41 - Moderate persistent asthma with (acute) exacerbation (4) Chronic allergic rhinitis: Code(s): J30.9 - Allergic rhinitis, unspecified Category: Medical Plan Plan Patient was informed and verbally consented to the use of an ambient scribe for clinic note documentation during this visit. 1. Rosacea The patient is experiencing rosacea, characterized by facial redness and swelling. Doxycycline was prescribed to manage the condition, and the patient is advised to use azelaic acid topically. 2. Migraine The patient reports daily migraines, particularly severe in the mornings. Topamax is being used for prevention, with a potential increase in dosage to 50 mg discussed. Referral to neurology for further evaluation and management was recommended. 3. Gastroesophageal Reflux Disease (Gerd) The patient has a history of gastroesophageal reflux disease, managed with omeprazole. The patient is advised to continue omeprazole twice daily during antibiotic treatment. 4. H. Pylori Infection The patient was diagnosed with H. pylori infection but did not receive the prescribed antibiotics due to cost. The plan includes starting tetracycline and metronidazole, with omeprazole to be taken concurrently. Orders: Referrals Neurology Referral G43.009 - Migraine without aura, not intractable, without status migrainosus Medications: New metronidazole 500 mg PO Q8H 42 tabs 0RF 14 days topiramate 50 mg PO BEDTIME 90 tabs 0RF 90 days Refilled ondansetron HCl 8 mg PO BID 30 tabs 3RF tetracycline 500 mg PO Q6H 56 caps 0RF 14 days A04.8 - Other specified bacterial intestinal infections bismuth subsalicylate 525 mg (15 mL) PO QID 840 mL 0RF 14 days A04.8 - Other specified bacterial intestinal infections cholecalciferol (vitamin D3) 50 mcg PO DAILY 90 caps 1RF 90 days omeprazole 40 mg PO DAILY 30 caps 2RF 30 days timcirslgg-dyzqjggoeqpyj-whbe 50-325-40 mg 1 tab PO DAILY PRN 25 tabs 1RF pain 30 days cetirizine 10 mg PO DAILY 90 tabs 0RF NS
--- OUTSIDE RECORDS SUMMARY | 2025-05-19 18:35 | XMS_ITS | Encounter Summary ---
Author Organization [employer] [facility] Address [address] [place] [address] Care Team Providers Care Side Gluer Name Role Phone Unavailable Primary Care Provider Unavailabl e Reason for Visit * Reason Comments Med Refill Encounter Details Date Type Department Care Team (Late st Contact Info) Description 11/07/2024 Refill [facility] [address] [place] [address] Miladys Vides DO [address] [place] [address] Social History Tobacco Use Types Packs/Day Years [...]
--- OUTSIDE RECORDS SUMMARY | 2025-05-19 18:35 | XMS_ITS | Clinical Summary ---
Author Organization [email or web address] Address [address] [place] [address] [address] [place] [address] Care Team Providers Care Retoucher Photoengraving Name Role Phone Unavailable Primary Care Provider [...] 26 Active omeprazole (PriLOSEC) [address] capsuleIndicati ons:Helicobacte r Pylori Infection Take 1 capsule [...] Chronic migraine 07/26/2011 Posttraumatic stress disorder 06/28/2010 Social History Tobacco Use Types Packs/Day Years [...] 93 08/22/2024 9:48 AM EST Temperature 36.3 C (97.4 F) 08/22/2024 9:48 AM EST Respiratory Rate 17 08/22/2024 9:48 AM EST [...] 1983 HIV Screening 1983 SDOH Screening 1983 Disability Screening 1983 Alcohol/Substance Use Screening 1995 Tobacco Screening 1995 Family Planning (PISQ) 1998 HPV Vaccines (1 - 3-dose series) 1998 Hepatitis C Screening 2001 Hepatitis B Vaccines (1 of 3 - 19+ 3-dose series) 2002 Pneumococcal Vaccine: Pediatrics (0 to 5 Years) and At-Risk Patients (6 to 49) Years (1 of 2 - PCV) 2002 Pap Smear 2004 Cervical Cancer Screening 2013 HPV/Cotest 2013 Mammogram 2023 COVID-19 Vaccine ( - season) 2025 11/23/2021, 12/14/2020, 11/16/2020 Influenza Vaccine (#1) 2025 , 07/29/2022, 06/07/2018, Additional history exists Diabetes: [...] patient's age to complete this topic Meningococcal B Vaccine Aged Out No l onger eligible based on patient's age to complete [...] AM EST) Hemoglobin A1c 5.9 <6.0 % [facility] Comment:Hemoglobin A1C Refer ence Range Adults: 4.8 - 6.0 % Non diabetic: < 6.0 % Goal: < 7.0 %Additional Action Suggested: > 8.0 %Note: Hemoglobin A1c results are invalid for patients with abnormal amounts of HbF. Blood transfusions may impact the HbA1c concentration in the patient sample. Estimated Average Glucose 123 mg/dL [facility] Comment:eAG = Estimated ave rage glucose which is %A1C expressed asaverage glucose, using the formula of the R0A-WcodficQbwyotw Glucose study (ADAG), Diabetes Care, Vol.31,#8,Mar. 2007 Blood Venous blood specimen / Unknown 08/22/2024 10:50 AM EST 08/22/2024 11:32 AM EST us Miladys Vides DO LAB BLOOD ORDERABLES Final R esult [facility] [address] [place] [phone] * Lipid Panel, Standard (08/22/2024 10:50 AM EST) Triglycerides 60 <150 mg/dL [facility] Comment:Desirable Triglyceri de: less than 150 mg/dLBorderline High Triglyceride 150-199 mg/dLHigh Triglyceride: 200-499 mg/dLVery High Triglyceride: greater than or equal to 5OO mg/dL Cholesterol 149 <200 mg/dL [facility] Comment:Desirable Cholestero l: less than 200 mg/dLBorderline High Cholesterol: 200-239 mg/dLHigh Cholesterol: greater than 239 mg/dL LDL Cholesterol Calculated 95 <100 mg/dL [facility] Comment:Desirable LDL: less than 100 mg/dLNear Optimal/Above Optimal LDL: 110- 129 mg/dLBorderline High LDL: 130-159 mg/dLHigh LDL: 160-189 mg/dLVery High LDL: greater than or equal to 190 mg/dL HDL Cholesterol 42 >40 mg/dL [facility] Comment:Desirable HDL: great er than 40 mg/dL Note: This HDL assay may give artificially low results in patients with liver disease. Blood Venous blood specimen / Unknown 08/22/2024 10:50 AM EST 08/22/2024 11:36 AM EST us Miladys Vides DO LAB BLOOD ORDERABLES Final R esult [facility] [address] [place] [phone] from Last 3 Months or Most Recently Relevant to Health Maintenance Insurance HSN FULL [facility] (O) HSN PARTIAL
--- OUTSIDE RECORDS SUMMARY | 2025-05-19 18:35 | XMS_ITS | Encounter Summary ---
Author Organization [employer] [facility] Address [address] [place] [address] Care Team Providers Care Counter Waiter Name Role Phone Unavailable Primary Care Provider Unavailabl e Reason for Visit * Reason Comments Med Refill Encounter Details Date Type Department Care Team (Late st Contact Info) Description 11/03/2024 Refill [facility] [address] [place] [address] Miladys Vides DO [address] [place] [address] Social History Tobacco Use Types Packs/Day Years [...]
== END 2025-05-19 18:10 | disposition home or self-care (01) ==
LOC: HO.HMCH 16:37
PROVIDERS: PCP Internal Medicine; Visit Provider Internal Medicine
DX: K21.9 Gastro-esophageal reflux disease without esophagitis (principal); G43.009 Migraine without aura, not intractable, without status migrainosus; J45.41 Moderate persistent asthma with (acute) exacerbation; J30.9 Allergic rhinitis, unspecified

== ENCOUNTER → 2025-05-19 16:36 | Outpatient (BNVA) | payer OTHER, SELFPAY | PROVIDERS: PCP Internal Medicine; Visit Provider Internal Medicine | DX: K21.9 Gastro-esophageal reflux disease without esophagitis (principal); G43.009 Migraine without aura, not intractable, without status migrainosus; J45.41 Moderate persistent asthma with (acute) exacerbation; J30.9 Allergic rhinitis, unspecified; L71.9 Rosacea, unspecified; A04.8 Other specified bacterial intestinal infections | CPT/HCPCS: 99212 ==

== ENCOUNTER 2025-05-28 11:24 | Outpatient (AMB) | payer OTHER, SELFPAY ==
--- NOTE | 2025-05-28 11:33 | MHC.OFFVIS ---
Vital Signs 05/28/25 11:34 Height 5 ft Weight 196 lb 3.382 oz BMI 38.3 BP 126/74 Blood Pressure Location Lt brachial Position Sitting Pulse 94 Intake Visit Reasons: Gastroesophageal reflux disease (GERD) Intake Note: Saloni presents in the office as a follow up for her GERD. CC: She states that she gets full fast and state that 45 minutes after eating she is hungry again because she cannot eat alot. Discomfort in the stomach and states sometimes she gets diarrhea. Epigastric pains every day. Casino Cage Manager Required: Yes Allergies duloxetine Adverse Reaction (Severe, Verified 05/28/25 11:34) Headache gabapentin Adverse Reaction (Intermediate, Verified 05/28/25 11:34) joint pain sumatriptan (SUMATRIPTAN) Adverse Reaction (Intermediate, Verified 05/28/25 11:34) Nausea, vomiting, HPI Comments Details: This is a 36-year-old female past medical history of moderate asthma, multiple environmental allergies, hypertension, who presents to the office for follow up after EGD/colo. Previous visit 04/2022: Patient states that for the past 2 years, she has had intermittent sensation of balloon or a lump in her epigastrium. This is associated with decreased appetite and early satiety. Symptoms are intermittent and she is unable to identify what triggers them or results them. No prandial association that she can elicit. No radiation of pain. This is also associated with watery diarrhea Thornton stool scale 5-6. Has 2 bowel movements today. Does not have diarrhea when she does not eat. No nocturnal symptoms. No blood or mucus in the stools. Occasional urgency. No tenesmus. No change in abd pain with stooling. Does not recall any travel, medication changes, sick contacts around the time of symptom onset. She also denies any illness preceding the symptoms. Takes ibuprofen occasionally. She does not report any family history of colorectal cancer or IBD. Has a gallbladder in Situ. Workup at that time indicated positive H pylori antigen, which per report was treated twice, but remains positive as of this year. EGD/colonoscopy 09/08/22 Normal esophagus (biopsy) Normal stomach (mapping biopsy) Normal duodenum (biopsy) Normal colon and terminal mucosa (biopsy) Internal hemorrhoids Path: A. Duodenum, biopsy: Duodenal mucosa within normal limits; negative for celiac disease. B. Stomach, antral lesser curvature, biopsy: - Antral-type mucosa with moderate chronic inactive inflammation; no intestinal metaplasia identified. - Positive for H pylori. C. Stomach, antral greater curvature, biopsy: - Antral-type mucosa with moderate chronic inactive inflammation; no intestinal metaplasia identified. - Positive for H pylori. D. Stomach, incisura, biopsy: - Antral-type mucosa with moderate chronic inactive inflammation; no intestinal metaplasia identified. - Positive for H pylori. E. Stomach, body lesser curvature, biopsy: - Oxyntic mucosa with moderate chronic inactive inflammation; no intestinal metaplasia identified. - Positive for H pylori. F. Stomach, body greater curvature, biopsy: - Oxyntic mucosa with moderate chronic inactive inflammation; no intestinal metaplasia identified. - Positive for H pylori. G. Esophagus, lower, Squamous mucosa within normal limits; no inflammation seen. biopsy: H. Esophagus, mid, biopsy: Squamous epithelium within normal limits; no inflammation seen. I. Colon, right, biopsy: Colonic mucosa within normal limits; negative for microscopic colitis. J. Colon, left, biopsy: Colonic mucosa within normal limits; negative for microscopic colitis. 09/21/22 Main complaint remains vague abd discomfort with heartburn. No N/V/D. Endoscopy findings and path reviewed. Given anemia, will elect to treat. Pt does not recall the exact treatment given before but states that both the times, was given one antibiotic that she had to take twice a day. 04/07/23: Seen with the help of video associate director of development. Has been seen by gen surg for splenic cyst - plan for observation. H pylori NICKI still POSITIVE i.e not successfully eradicated. Pt reports was not able to take the meds QID due to abd discomfort and most of the days took the meds 3 times a day. 05/28/25: Here for follow up. Reports completing Quad therapy as prescribed but NICKI was again pos in Aug 2024. To recall this is treatment failure x 2. Pt reports increasing abd discomfort with bloating. No dysphagia, unintentional weight loss. [facility] Medical History Chronic hypercapnic respiratory failure JO (obstructive sleep apnea) Dyspnea Chest pain Allergies NORMA positive H. 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 Hypovitaminosis D Migraines Surgical History Hx of retained foreign body fully removed (11/23/17) History of tubal ligation History of section Family History Father CVD (cardiovascular disease) Mother Chronic mental illness Breast cancer Schizophrenia Mental health disorder Maternal Grandmother Hypertension Stroke Paternal Grandmother Breast cancer Paternal Aunt Breast cancer Paternal Aunt Cancer of unknown origin Family/Other Chronic mental illness Mental health disorder Social History Household Members: Family Housing: House Alcohol intake: never Patient Tobacco Use Status: Never used Tobacco e-Cigarette/Vaping Use: Never Used Second Hand Smoke Exposure: No service: No Current occupational status: employed Current occupational exposures/hazards: No Cognitive needs: No Hearing needs: No Vision needs: No Review of Systems Const All systems reviewed & are unremarkable except as noted in HPI and below Physical Exam Exam Exam: No apparent distress Nonicteric Abdomen soft, nondistended Alert and oriented x3, normal gait Vital Signs: Last Vital Signs Pulse 94 05/28/25 11:34 BP 126/74 05/28/25 11:34 BMI result Body Mass Index 38.3 Assessment & Plan Assessment & Plan (1) H. pylori infection: Code(s): A04.8 - Other specified bacterial intestinal infections Category: Medical (2) Microcytic anemia: Code(s): D50.9 - Iron deficiency anemia, unspecified Category: Medical (3) Cyst of spleen: Code(s): D73.4 - Cyst of spleen Category: Medical Plan 1. H pylori infection: Completed quad therapy as prescribed but still has positive NICKI. Reviewed that since she has failed bismuth based therapy x 2 will recommend rifabutin based therapy. Plan: - Talicia x 14 days Rxed - Will need NICKI 2-3 weeks after completing treatment 2. Splenic cyst Repeat CT was ordered but not approved by insurance. Plan: - US abd ordered to monitor size of splenic cyst 3. Anemia Microcytic NURIS due to heavy menstrual losses. Pt on PO iron but reviewed may have compromised absorption due to hypochrlorhydria due to H Pylori. plan: - iron studies ordered - if still low despite PO supplementation x months would favor IV venofer Follow up in office in 3 months Orders: Orders US abdomen complete Today D73.89 - Other diseases of spleen IRON PROFILE Today D50.9 - Iron deficiency anemia, unspecified Ferritin Today D50.9 - Iron deficiency anemia, unspecified Medications: New ydnpzowssh-bstytgkpn-joqkteivz 10-250-12.5 mg (Talicia) must administer with a meal/food 4 caps (4 x 10-250-12.5 mg) PO TID 168 ea 0RF 14 days Coding Level of Care Code Est Pt Level 4 (16428) Complex EM visit Add On G2211 Diagnoses H. pylori infection A04.8 Microcytic anemia D50.9 Cyst of spleen D73.4
[2025-05-28 11:34] VITALS: BP 126/74; PULSE 94; BMI 38.3
== END 2025-05-28 11:57 | disposition home or self-care (01) ==
LOC: HO.HGI 11:25
PROVIDERS: PCP Internal Medicine; Visit Provider Internal Medicine
DX: A04.8 Other specified bacterial intestinal infections (principal); D50.9 Iron deficiency anemia, unspecified; D73.4 Cyst of spleen
CPT/HCPCS: 99214

== ENCOUNTER → 2025-05-28 11:24 | Outpatient (BNVA) | payer OTHER, SELFPAY | PROVIDERS: PCP Internal Medicine; Visit Provider Internal Medicine | DX: A04.8 Other specified bacterial intestinal infections (principal); D50.9 Iron deficiency anemia, unspecified; D73.4 Cyst of spleen | CPT/HCPCS: 99212 ==

== ENCOUNTER 2025-07-29 08:02 | Outpatient (AMB) | payer OTHER, SELFPAY ==
--- NOTE | 2025-07-29 08:04 | MHC.PC.OV ---
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 Accompanied by: Self / Same As Patient Allergies duloxetine Adverse Reaction (Severe, Verified 07/29/25 08:15) Headache gabapentin Adverse Reaction (Intermediate, Verified 07/29/25 08:15) joint pain sumatriptan (SUMATRIPTAN) Adverse Reaction (Intermediate, Verified 07/29/25 08:15) Nausea, vomiting, Medication List - Last Reconciled 07/29/25 by Norma Keane MD albuterol sulfate 90 mcg/actuation 2 inhalations inhalation Q6H PRN 30 days albuterol sulfate 2.5 mg (3 mL) inhalation Q4H PRN 30 days bismuth subsalicylate 525 mg (15 mL) PO QID 14 days Brace,wrist As directed budesonide 0.5 mg (2 mL) inhalation BID 30 days budesonide-formoterol 160-4.5 mcg/actuation (Symbicort) 2 puffs inhalation BID 30 days bupropion HCl XL 150 mg PO QAM 90 days cvpcerjyrt-dppugcsdhsmdv-icyf 50-325-40 mg 1 tab PO DAILY PRN 30 days cetirizine 10 mg PO DAILY NS cholecalciferol (vitamin D3) 50 mcg PO DAILY 90 days cyclobenzaprine 10 mg PO TID PRN dupilumab 300 mg (2 mL) subcut Q2W epinephrine (EpiPen 2-[place]) 0.3 mg (0.3 mL) IM Q10M PRN 30 days ferrous sulfate (iron) 325 mg PO DAILY fluticasone propionate 50 mcg/actuation (Flonase Allergy Relief) 1 spray intranasal BID 30 days ibuprofen 800 mg PO TID levalbuterol HCl 1.25 mg (3 mL) inhalation Q6H PRN levalbuterol tartrate 45 mcg/actuation 2 puffs inhalation Q6H PRN montelukast 10 mg PO BEDTIME nebulizers As directed grhqofftls-cfcglfwuu-pfoqjygnl 10-250-12.5 mg (Talicia) 4 caps (4 x 10-250-12.5 mg) PO TID 14 days ondansetron HCl 8 mg PO BID topiramate 50 mg PO BEDTIME 90 days Tobacco use date assessed: 05/19/25 Dental Screening Dental Screen Date: 05/19/25 HPI HPI Comments History of Present Illness Details The patient is a 39-year-old female presenting for follow-up and management of H. pylori infection and recurrent migraines. She has been unable to start treatment for H. pylori as she has not yet received the prescribed medications from the pharmacy. Her insurance did not approve the initial combination therapy, Talicia (omeprazole, amoxicillin, and rifabutin), due to cost. The patient has an upcoming gastroenterology appointment on August 01 and a sonogram scheduled for the . Regarding her migraines, she reports they are recurring after a period of being well-controlled, though they are not as severe as previously. She is not currently followed by a neurologist for this condition but has an appointment soon with Neurology regarding this matter. Depression and asthma has been well control. Her current medications include albuterol PRN, budesonide, Symbicort, bupropion 150 mg for depression, Fioricet for migraines, cetirizine for allergies, vitamin D, Flexeril, Dupixent every 2 weeks, iron once daily, ibuprofen PRN, montelukast, ondansetron, and topiramate at night. She has known allergies to Cymbalta (headache), gabapentin (joint pain), and sumatriptan (nausea and vomiting). [facility] Medical History Chronic hypercapnic respiratory failure JO (obstructive sleep apnea) Dyspnea Chest pain Allergies NORMA positive H. 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 Hypovitaminosis D Migraines Surgical History Hx of retained foreign body fully removed (11/23/17) History of tubal ligation History of section Family History Father CVD (cardiovascular disease) Mother Chronic mental illness Breast cancer Schizophrenia Mental health disorder Maternal Grandmother Hypertension Stroke Paternal Grandmother Breast cancer Paternal Aunt Breast cancer Paternal Aunt Cancer of unknown origin Family/Other Chronic mental illness Mental health disorder Social History Household Members: Family Housing: House Alcohol intake: never Patient Tobacco Use Status: Never used Tobacco e-Cigarette/Vaping Use: Never Used Second Hand Smoke Exposure: No service: No Current occupational status: employed Current occupational exposures/hazards: No Cognitive needs: No Hearing needs: No Vision needs: No Questionnaire Thrive Questionnaire Date Thrive assessed: 01/27/25 I am a: Patient What is your living situation today?: I have a steady place to live Within the past 12 months, did the food you bought not last and you didn't have the money to get more?: I choose not to answer this question Within the past 12 months, did you worry whether your food would run out before you got money to buy more?: Sometimes True Do you have trouble paying for medicines?: Yes Do you have trouble getting transportation to medical appointments?: No Do you have trouble paying your heating and electricity bill?: No Do you have trouble taking care of your child, family member or friend?: No Do you have trouble with day-to-day activities such as bathing, preparing meals, shopping, managing finances, etc.?: No Are you currently unemployed and looking for a job?: No Are you interested in more education?: Yes Please select the resources that you would like help with: Paying for medicine THRIVE Score: 1 QUYNH-7 AMB Questionnaire QUYNH-7 Date QUYNH - 7 assessed: 01/27/25 Source: Developed by Drs. Huber Zamora, Opal Wyatt, Demetrius Figueroa and colleagues, with an educational yvrose from [employer]. Review of Systems Const All systems reviewed & are unremarkable except as noted in HPI and below Card Denies chest pain at rest, Denies chest pain with activity, Denies edema, Denies irregular heart rhythm, Denies claudication, Denies dyspnea, Denies dyspnea on exertion, Denies orthopnea, Denies paroxysmal nocturnal dyspnea and Denies slow heart rate Resp Denies cough, Denies dyspnea and Denies dyspnea on exertion Physical exam (Primary Care) Vital Signs: Last Vital Signs Temp 97.8 F 07/29/25 08:05 Pulse 84 07/29/25 08:05 Resp 18 07/29/25 08:05 BP 116/68 07/29/25 08:05 Pulse Ox 98 07/29/25 08:05 Oxygen Delivery Method Room Air 07/29/25 08:05 BMI result Body Mass Index 38.1 BMI Assessment/Plan discussion: High BMI High, discussed plan: lifestyle, weight reduction, dietary and physical activity Tobacco/Smoking Status: Tobacco use Status Tobacco use date assessed 05/19/25 07/29/25 08:06 Patient Tobacco Use Status Never used Tobacco 07/29/25 08:06 e-Cigarette/Vaping Use Never Used 07/29/25 08:06 Thrive Assessment: Date of Thrive Assessment Date Thrive assessed 01/27/25 07/29/25 08:06 Resp Effort & Inspection: normal respiratory effort Auscultation: clear to auscultation bilaterally Cardio Jugular venous distension: no JVD Rate: regular rate Rhythm: regular rhythm Heart sounds: S1 normal heart sound present and S2 normal heart sound present Extrem General: Yes full ROM Coding Level of Care Code Add On Preventative Visit Only Diagnoses Mild major depression F32.0 H. pylori infection A04.8 Migraines G43.009 Intractability: not intractable Migraine type: without aura Status migrainosus presence: without status migrainosus Moderate persistent asthma with acute exacerbation J45.41 Asthma severity: moderate Asthma persistence: persistent Asthma complication type: with acute exacerbation Pharyngitis J02.9 Time Spent (min) 23 Assessment & Plan Assessment & Plan (1) Mild major depression: Code(s): F32.0 - Major depressive disorder, single episode, mild Category: Medical (2) H. pylori infection: Code(s): A04.8 - Other specified bacterial intestinal infections Category: Medical (3) Migraines: Code(s): G43.909 - Migraine, unspecified, not intractable, without status migrainosus Category: Medical Qualifiers: Intractability: not intractable Migraine type: without aura Status migrainosus presence: without status migrainosus Qualified Code(s): G43.009 - Migraine without aura, not intractable, without status migrainosus (4) Asthma: Code(s): J45.909 - Unspecified asthma, uncomplicated Category: Medical Qualifiers: Asthma severity: moderate Asthma persistence: persistent Asthma complication type: with acute exacerbation Qualified Code(s): J45.41 - Moderate persistent asthma with (acute) exacerbation (5) Pharyngitis: Code(s): J02.9 - Acute pharyngitis, unspecified Category: Medical Plan Plan 1. H. Pylori Infection The patient has been unable to start treatment due to insurance denying coverage for Talicia. An alternative regimen of amoxicillin, rifabutin, and omeprazole will be prescribed for 14 days. The dosing will be amoxicillin twice daily, rifabutin once daily, and omeprazole twice daily. The patient was advised that omeprazole 20 mg is available [id number]. Amoxicillin is expected to be inexpensive, but there is uncertainty if the insurance plan will approve rifabutin. 2. Migraine The patient reports a recurrence of migraines, although not as severe as in the past. She continues to have prescriptions for Fioricet and topiramate for management. 3. Pharyngitis On examination, the patient's throat appears erythematous and inflamed. The patient was informed that the prescribed antibiotic for H. pylori, amoxicillin, can also help with this bacterial infection. COVID-19, influenza, and RSV testing will be ordered, which can be done at the laboratory. 4. Mild major depression Continue bupropion. 5. Asthma Continue long-acting inhaler. Follow-up with pulmonology. Keep oxygen saturation over 90% at room air. Orders: Orders SARS-CoV2/FLU/RSV Today R09.89 - Other specified symptoms and signs involving the circulatory and respiratory systems Medications: New amoxicillin 500 mg PO BID 14 tabs 0RF 7 days rifabutin 150 mg PO DAILY 14 caps 0RF 14 days A04.8 - Other specified bacterial intestinal infections rifabutin 150 mg PO DAILY 7 days 7 caps 0RF A04.8 - Other specified bacterial intestinal infections Changed From ibuprofen 800 mg PO TID To ibuprofen 800 mg PO TID 90 tabs 0RF 30 days Refilled uullhmdfnm-prpuzqyyhtsav-qlzo 50-325-40 mg 1 tab PO DAILY PRN 25 tabs 1RF pain 30 days cetirizine 10 mg PO DAILY 90 tabs 0RF NS topiramate 50 mg PO BEDTIME 90 tabs 0RF 90 days bupropion HCl XL 150 mg PO QAM 90 tabs 1RF 90 days F32.0 - Major depressive disorder, single episode, mild cholecalciferol (vitamin D3) 50 mcg PO DAILY 90 caps 1RF 90 days cyclobenzaprine 10 mg PO TID PRN 90 tabs 1RF muscle spasm ferrous sulfate (iron) 325 mg PO DAILY 60 tabs 3RF montelukast 10 mg PO BEDTIME 90 tabs 3RF J45.909 - Unspecified asthma, uncomplicated
[2025-07-29 08:05] VITALS: BP 116/68; PULSE 84; RESP 18; TEMP 36.6; O2SAT 98; BMI 38.1
--- OUTSIDE RECORDS SUMMARY | 2025-07-29 08:15 | XMS_ITS | Encounter Summary ---
Author Organization [facility] Address [address] [place] [address] Care Team Providers Care Informatics Nurse Specialist Name Role Phone Unavailable Primary Care Provider Unavailabl e Reason for Visit * Reason Comments Med Refill Encounter Details Date Type Department Care Team (Late st Contact Info) Description 11/03/2024 Refill [facility] [address] [place] [address] Miladys Vides DO [address] [place] [address] Social History Tobacco Use Types Packs/Day Years [...]
--- OUTSIDE RECORDS SUMMARY | 2025-07-29 08:15 | XMS_ITS | Encounter Summary ---
Author Organization [facility] Address [address] [place] [address] Care Team Providers Care Rock Dust Sprayer Name Role Phone Unavailable Primary Care Provider Unavailabl e Reason for Visit * Reason Comments Med Refill Encounter Details Date Type Department Care Team (Late st Contact Info) Description 11/07/2024 Refill [facility] [address] [place] [address] Miladys Vides DO [address] [place] [address] Social History Tobacco Use Types Packs/Day Years [...]
--- OUTSIDE RECORDS SUMMARY | 2025-07-29 08:15 | XMS_ITS | Clinical Summary ---
Author Organization [employer] Address [address] [place] [address] [address] [place] [address] Care Team Providers Care Cafe Or Restaurant Manager Name Role Phone Unavailable Primary Care Provider [...] AM EST) Hemoglobin A1c 5.9 <6.0 % [facility] Comment:Hemoglobin A1C Refer ence Range Adults: 4.8 - 6.0 % Non diabetic: < 6.0 % Goal: < 7.0 %Additional Action Suggested: > 8.0 %Note: Hemoglobin A1c results are invalid for patients with abnormal amounts of HbF. Blood transfusions may impact the HbA1c concentration in the patient sample. Estimated Average Glucose 123 mg/dL [facility] Comment:eAG = Estimated ave rage glucose which is %A1C expressed asaverage glucose, using the formula of the [id number] Glucose study (ADAG), Diabetes Care, Vol.31,#8,Mar. 2007 Blood Venous blood specimen / Unknown 08/22/2024 10:50 AM EST 08/22/2024 11:32 AM EST us Mildays Vides DO LAB BLOOD ORDERABLES Final R esult [facility] [address] [place] [phone] * Lipid Panel, Standard (08/22/2024 10:50 AM EST) Triglycerides 60 <150 mg/dL [facility] Comment:Desirable Triglyceri de: less than 150 mg/dLBorderline High Triglyceride 150-199 mg/dLHigh Triglyceride: 200-499 mg/dLVery High Triglyceride: greater than or equal to 5OO mg/dL Cholesterol 149 <200 mg/dL [facility] Comment:Desirable Cholestero l: less than 200 mg/dLBorderline High Cholesterol: 200-239 mg/dLHigh Cholesterol: greater than 239 mg/dL LDL Cholesterol Calculated 95 <100 mg/dL [facility] Comment:Desirable LDL: less than 100 mg/dLNear Optimal/Above Optimal LDL: 110- 129 mg/dLBorderline High LDL: 130-159 mg/dLHigh LDL: 160-189 mg/dLVery High LDL: greater than or equal to 190 mg/dL HDL Cholesterol 42 >40 mg/dL [facility] Comment:Desirable HDL: great er than 40 mg/dL Note: This HDL assay may give artificially low results in patients with liver disease. Blood Venous blood specimen / Unknown 08/22/2024 10:50 AM EST 08/22/2024 11:36 AM EST us Miladys Vides DO LAB BLOOD ORDERABLES Final R esult [facility] [address] [place] [phone] from Last 3 Months or Most Recently Relevant to Health Maintenance Insurance HSN FULL [facility] (O) HSN PARTIAL
== END 2025-07-29 08:32 | disposition home or self-care (01) ==
LOC: HO.HMCH 08:03
PROVIDERS: PCP Internal Medicine; Visit Provider Internal Medicine
DX: F32.0 Major depressive disorder, single episode, mild (principal); A04.8 Other specified bacterial intestinal infections; G43.009 Migraine without aura, not intractable, without status migrainosus; J45.41 Moderate persistent asthma with (acute) exacerbation; J02.9 Acute pharyngitis, unspecified

== ENCOUNTER → 2025-07-29 08:02 | Outpatient (BNVA) | payer OTHER, SELFPAY | PROVIDERS: PCP Internal Medicine; Visit Provider Internal Medicine | DX: F32.0 Major depressive disorder, single episode, mild (principal); A04.8 Other specified bacterial intestinal infections; G43.009 Migraine without aura, not intractable, without status migrainosus; J45.41 Moderate persistent asthma with (acute) exacerbation; J02.9 Acute pharyngitis, unspecified | CPT/HCPCS: 99212 ==